=== PATIENT | female | born 1965 | race Caucasian/White ===

== ENCOUNTER 2017-12-28 14:15 | Emergency (ER) | payer BC ==
[2017-12-28 14:25] VITALS: BP 145/78
[2017-12-28] MEDS ORDERED: Sodium Chloride 0.9% 10 ML Syringe FLUSH PRN (14:29)
[2017-12-28] MEDS ORDERED: Sodium Chloride 0.9% 1,000 ML IV ONE (14:30)
--- NOTE | 2017-12-28 14:43 | EDM.PDOC ---
ED HPI GENERAL MEDICAL PROBLEM - General Chief Complaint: General Stated Complaint: uti symptoms Time Seen by Provider: 12/28/17 14:28 Source of Information: Reports: Patient History Limitations: Reports: No Limitations - History of Present Illness INITIAL COMMENTS - FREE TEXT/NARRATIVE: Patient comes to ER with main complaint of muscle aches in arms/legs. Has had some kunal horse type cramps in lower legs. Seen in [facility] yesterday and diagnosed with UTI/started on Macrobid. Took one dose. Reports having loose stools all night after supper. Some chills, no fever. Notes some dysuria but no obvious blood in urine. Hx of chronic back issues. Notes increased discomfort bilateral mid back that shoots upward/downward last few days, worse today. No weakness/neuro changes. Denies acute HEENT/Resp/CV changes. No vomiting/nausea. Patient has multiple chronic issues, including second hand smoke exposure, asthma, anxiety, GERD, back pain, osteoarthritis, hyperlipidemia, thyroid. Weaned self off of Lorazepam and has not had a dose for last 6 days. 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 Bilateral Leg Pain Score (Numeric/FACES): 7 - Related Data Allergies Allergy/AdvReac Type Severity Reaction Status Date / Time fluticasone propionate Allergy Hives Verified 12/28/17 14:27 [From Flonase] oxycodone Allergy Vomiting Verified 12/28/17 14:27 Home Meds: Home Meds Multivitamin [Daily Vitamin] 1 tab PO DAILY 06/11/13 [History] Fluticasone/Salmeterol [Advair 250-50] 1 puff INH DAILY PRN 01/22/14 [History] Sertraline HCl [Zoloft] 1 tab PO BEDTIME 06/06/14 [History] LORazepam 0.5 mg PO TID PRN 11/01/15 [History] Metoprolol Tartrate 25 mg PO BID 11/01/15 [History] Aspirin [Halfprin] 81 mg PO DAILY 12/28/17 [History] Docusate Sodium [Colace Clear] 50 mg PO DAILY 12/28/17 [History] Ferrous Sulfate 650 mg PO DAILY 12/28/17 [History] Montelukast Sodium [Singulair] 10 mg PO DAILY 12/28/17 [History] Past Medical History HEENT History: Reports: Allergic Rhinitis, Impaired Vision, Other (See Below) Other HEENT History: Wears glasses, recurrent bilateral nasal polyps Cardiovascular History: Reports: CAD, High Cholesterol, Syncope, Other (See Below) Other Cardiovascular History: Mild coronary artery disease by heart catheterization on 09/28/15 with only 20% stenosis noted at that time, syncope on 12/20/08 and 01/03/06 Respiratory History: Reports: Asthma, Intubation, Previous, Pulmonary Fibrosis, Other (See Below) Other Respiratory History: Pulmonary fibrosis by chest x-ray Gastrointestinal History: Reports: Chronic Constipation, GERD, Helicobacter Pylori, Other (See Below) Other Gastrointestinal History: Previously treated H. pylori Genitourinary History: Reports: UTI, Recurrent MASTER OF CEREMONIES History: Reports: Other MASTER OF CEREMONIES History: Full term without complications during pregnancies or deliveries, menopause in 2012 with occasional menopausal symptoms Musculoskeletal History: Reports: Arthritis, Back Pain, Chronic, Neck Pain, Chronic, Osteoarthritis Neurological History: Reports: Headaches, Chronic, Migraines, Vertigo, Other ( See Below) Other Neuro History: Mixed migraine and tension headaches with migraine headaches mostly at time of menopause Psychiatric History: Reports: Anxiety, Depression Endocrine/Metabolic History: Reports: Hypothyroidism, Other (See Below) Other Endocrine/Metabolic History: hypokalemia Hematologic History: Reports: None Immunologic History: Reports: None Oncologic (Cancer) History: Reports: None Dermatologic History: Reports: None - Infectious Disease History Infectious Disease History: Reports: Chicken Pox, Helicobacter Pylori, Measles - Past Surgical History Head Surgeries/Procedures: Reports: None HEENT Surgical History: Reports: Naso-Sinus Surgery, Oral Surgery, Polypectomy, Other (See Below) GI Surgical History: Reports: Colonoscopy, EGD, Other (See Below) Female Surgical History: Reports: Tubal Ligation, Other (See Below) Musculoskeletal Surgical History: Reports: Arthroscopic Procedure, Carpal Tunnel , Other (See Below) Oncologic Surgical History: Reports: None Dermatological Surgical History: Reports: None - Past Imaging History Past Imaging History: Reports: Angiography, Mammogram, MRI, Stress Testing, Ultrasound Social & Family History - Family History HEENT: Reports: Allergic Rhinitis, Other (See Below) Other HEENT Family History: Allergic rhinitis in multiple family members Cardiac: Reports: Afib, Bypass, CAD, Heart Failure, Heart Murmur, High Cholesterol, Hypertension, IA, Stent, Other (See Below) Other Cardiac Family History: Brother with atrial fibrillation, sister with acute IA and three-vessel CABG at age 50, brother with CHF secondary to fatal IA at age 60, brother with heart murmur secondary to rheumatic fever, hyperlipidemia and hypertension in 3 brothers and one sister, brother with fatal IA at age 40, mother with fatal IA at age 75, mother with IA in his 80s, PTCA/stent in 3 maternal aunts in their 50s Respiratory: Reports: None. Denies: Asthma, COPD, PE GI: Reports: Inflammatory Bowel Disease, Jaundice, Pancreatitis, Other (See Below) Other GI Family History: Nephew with Crohn's disease, father with jaundice, sister with pancreatitis : Reports: None. Denies: Dialysis, Renal Calculus, Renal Disease/ Insufficiency OBGYN: Reports: None. Denies: Dysfunctional uterine bleeding, Endometriosis, Fibroids Musculoskeletal: Reports: None. Denies: Gout, RA, SLE Neurological: Reports: None. Denies: Alzheimers Disease, CVA, Dementia, Parkinson's, Seizure, TIA Psychiatric: Reports: Anxiety, Depression, Other (See Below) Other Psychiatric Family History: Anxiety depression disorder in mother and 2 sisters Endocrine/Metabolic: Reports: Hypothyroidism, Other (See Below) Other Endocrine/Metabolic Family History: Mother with hypothyroidism Hematologic: Reports: Anemia, Other (See Below) Other Hematologic Family History: Son and brother with anemia, father with transfusions secondary to his jaundice/injury in his 40s Immunologic: Reports: Immunosuppression, Other (See Below) Other Immunologic Family History: Sister with scleroderma and another unknown type of immunodeficiency disorder with secondary pancreatitis requiring surgery at about age 35 Dermatologic: Reports: Other (See Below) Other Dermatologic Family History: sister with scleroderma Oncologic: Reports: Colon, Leukemia, Renal, Other (See Below) Other Oncologic Family History: Brother with fatal colon cancer at age 25, son with ALL at age 3-1/2 years with blood transfusions required, father with kidney cancer in his 80s - Caffeine Use Caffeine Use: Reports: Coffee (one cup per week), Soda (one soda per day), Tea ( rare). Denies: Energy Drinks - Living Situation & Occupation Living situation: Reports: , with Family Occupation: Employed ED ROS GENERAL - Review of Systems Review Of Systems: See Below Constitutional: Reports: Chills, Weight Gain (gained 5-6# over the last several weeks), Other (brain fog). Denies: Fever, Night Sweats, Diaphoresis, Decreased Appetite, Weight Loss HEENT: Reports: No Symptoms (no acute changes) Respiratory: Reports: No Symptoms, Cough, Sputum Cardiovascular: Denies: Chest Pain, Dyspnea on Exertion, Edema, Lightheadedness , Palpitations GI/Abdominal: Reports: Diarrhea. Denies: Abdominal Pain, Black Stool, Bloody Stool, Nausea, Vomiting : Reports: Dysuria, Flank Pain, Frequency. Denies: Hematuria Musculoskeletal: Reports: Muscle Pain (generalized aches in back/arms/legs). Denies: Joint Swelling Skin: Reports: No Symptoms Neurological: Denies: Confusion, Dizziness, Headache, Numbness, Paresthesia, Trouble Speaking, Difficulty Walking, Weakness, Change in Speech, Gait Disturbance Psychiatric: Denies: Confusion, Hallucinations, Homicidal Ideation, Mood Lability, Suicidal Ideation Hematologic/Lymphatic: Reports: No Symptoms ED EXAM, GENERAL - Physical Exam Exam: See Below Exam Limited By: No Limitations General Appearance: Alert, WD/WN, No Apparent Distress Eye Exam: Bilateral Eye: EOMI, PERRL Ears: Normal External Exam Nose: No: Nasal Deformity, Nasal Swelling, Nasal Drainage Throat/Mouth: Normal Lips, Normal Voice, No Airway Compromise Head: Atraumatic, Normocephalic Neck: Normal Inspection, Supple, Non-Tender, Full Range of Motion Respiratory/Chest: No Respiratory Distress, Lungs Clear, Normal Breath Sounds, No Accessory Muscle Use, Chest Non-Tender Cardiovascular: Normal Peripheral Pulses, Regular Rate, Rhythm, No Edema, No Murmur Peripheral Pulses: 2+: Radial (L), Radial (R) GI/Abdominal: Soft, Non-Tender, No Distention, Abnormal Bowel Sounds (present but overall diminished all quadrants) (Female) Exam: Deferred Rectal (Female) Exam: Deferred Back Exam: CVA Tenderness (R) (mild). No: CVA Tenderness (L), Muscle Spasm, Paraspinal Tenderness, Vertebral Tenderness Extremities: Normal Inspection, Normal Range of Motion, Non-Tender, No Pedal Edema, Normal Capillary Refill Neurological: Alert, Oriented, Normal Cognition, Normal Gait, No Motor/Sensory Deficits Psychiatric: Normal Affect, Normal Mood Skin Exam: Warm, Dry, Intact, Normal Color Course - Vital Signs Last Recorded V/S: Last Vital Signs Temp 36.9 C 12/28/17 14:15 Pulse 102 H 12/28/17 14:15 Resp 16 12/28/17 14:15 BP 145/78 H 12/28/17 14:15 Pulse Ox 100 12/28/17 14:15 - Orders/Labs/Meds Orders: Active Orders 24 hr Category Date Time Status Abdomen Pelvis wo Cont [CT] Stat Exams 12/28/17 14:30 Taken CREATINE KINASE,CK [CHEM] Routine Lab 12/28/17 17:52 Ordered CULTURE URINE [RM] Routine Lab 12/28/17 14:20 Stop Req CULTURE URINE [RM] Stat Lab 12/28/17 17:32 Ordered PRO B-TYPE NATRIUR PEPT,BNPPRO [CHEM] Routine Lab 12/28/17 15:47 Ordered VITAMIN D,25-HYDROXY [CHEM] Stat Lab 12/28/17 14:59 Ordered Sodium Chloride 0.9% [Saline Flush] Med 12/28/17 14:29 Active 10 ml FLUSH ASDIRECTED PRN Saline Lock Insert [OM.PC] Stat Oth 12/28/17 14:29 Ordered Medication Orders Sodium Chloride (Saline Flush) 10 ml FLUSH ASDIRECTED PRN PRN Reason: Keep Vein Open Labs: Laboratory Tests 12/28/17 12/28/17 12/28/17 Range/Units 14:20 14:35 14:35 WBC 11.1 H (4.0-10.2) K/uL RBC 4.43 (3.77-5.09) M/uL Hgb 13.7 D (11.7-15.5) g/dL Hct 39.4 (34.0-46.0) % MCV 88.9 (84.0-98.0) fL MCH 30.9 (28.2-33.3) pg MCHC 34.8 (31.7-36.0) g/dL RDW 13.5 (11.2-14.1) % Plt Count 220 (150-350) K/uL Neut % (Auto) 80.3 H (45.0-80.0) % Lymph % (Auto) 4.6 L (10.0-50.0) % Gordon % (Auto) 3.2 (2.0-14.0) % Eos % (Auto) 11.7 H (0.0-5.0) % Baso % (Auto) 0.2 (0.0-2.0) % Neut # (Auto) 8.92 H (1.40-7.00) K/uL Lymph # (Auto) 0.51 (0.50-3.50) K/uL Gordon # (Auto) 0.36 (0.00-1.00) K/uL Eos # (Auto) 1.30 H (0.00-0.50) K/uL Baso # (Auto) 0.02 (0.00-0.20) K/uL Sodium 142 (136-145) mmol/L Potassium 3.5 (3.5-5.1) mmol/L Chloride 105 (98-107) mmol/L Carbon Dioxide 24.9 (21.0-32.0) mmol/L BUN 13 (7-18) mg/dL Creatinine 0.75 (0.51-1.17) mg/dL Est Cr Clr Drug Dosing 67.82 mL/min Estimated GFR (MDRD) > 60 mL/min Glucose 158 H (74-106) mg/dL Calcium 8.7 (8.5-10.1) mg/dL Magnesium (1.8-2.4) mg/dL Total Bilirubin 0.3 (0.2-1.0) mg/dL AST 17 (15-37) U/L ALT 32 (12-78) U/L Alkaline Phosphatase 76 (46-116) IU/L Total Protein 7.2 (6.4-8.2) g/dL Albumin 3.6 (3.4-5.0) g/dL Specimen Type Urinblad Urine Color Yellow Urine Appearance Clear Urine pH 7.0 (5.0-9.0) Ur Specific Baker 1.010 (1.005-1.030) Urine Protein Negative (NEGATIVE) mg/dL Urine Glucose (UA) Negative (NEGATIVE) mg/dL Urine Ketones Negative (NEGATIVE) mg/dL Urine Occult Blood Negative (NEGATIVE) Urine Nitrite Negative (NEGATIVE) Urine Bilirubin Negative (NEGATIVE) Urine Urobilinogen 0.2 (0.2-1.0) E.U./dL Ur Leukocyte Esterase Negative (NEGATIVE) Urine RBC 0-5 /HPF Urine WBC 0-5 /HPF Ur Epithelial Cells Few /LPF Urine Bacteria Rare (NONE TO FEW) /HPF 12/28/17 Range/Units 14:35 WBC (4.0-10.2) K/uL RBC (3.77-5.09) M/uL Hgb (11.7-15.5) g/dL Hct (34.0-46.0) % MCV (84.0-98.0) fL MCH (28.2-33.3) pg MCHC (31.7-36.0) g/dL RDW (11.2-14.1) % Plt Count (150-350) K/uL Neut % (Auto) (45.0-80.0) % Lymph % (Auto) (10.0-50.0) % Gordon % (Auto) (2.0-14.0) % Eos % (Auto) (0.0-5.0) % Baso % (Auto) (0.0-2.0) % Neut # (Auto) (1.40-7.00) K/uL Lymph # (Auto) (0.50-3.50) K/uL Gordon # (Auto) (0.00-1.00) K/uL Eos # (Auto) (0.00-0.50) K/uL Baso # (Auto) (0.00-0.20) K/uL Sodium (136-145) mmol/L Potassium (3.5-5.1) mmol/L Chloride (98-107) mmol/L Carbon Dioxide (21.0-32.0) mmol/L BUN (7-18) mg/dL Creatinine (0.51-1.17) mg/dL Est Cr Clr Drug Dosing mL/min Estimated GFR (MDRD) mL/min Glucose (74-106) mg/dL Calcium (8.5-10.1) mg/dL Magnesium 1.9 (1.8-2.4) mg/dL Total Bilirubin (0.2-1.0) mg/dL AST (15-37) U/L ALT (12-78) U/L Alkaline Phosphatase (46-116) IU/L Total Protein (6.4-8.2) g/dL Albumin (3.4-5.0) g/dL Specimen Type Urine Color Urine Appearance Urine pH (5.0-9.0) Ur Specific Baker (1.005-1.030) Urine Protein (NEGATIVE) mg/dL Urine Glucose (UA) (NEGATIVE) mg/dL Urine Ketones (NEGATIVE) mg/dL Urine Occult Blood (NEGATIVE) Urine Nitrite (NEGATIVE) Urine Bilirubin (NEGATIVE) Urine Urobilinogen (0.2-1.0) E.U./dL Ur Leukocyte Esterase (NEGATIVE) Urine RBC /HPF Urine WBC /HPF Ur Epithelial Cells /LPF Urine Bacteria (NONE TO FEW) /HPF Meds: Medications Generic Name Dose Route Start Last Admin Trade Name Freq PRN Reason Stop Dose Admin Sodium Chloride 10 ml 12/28/17 14:29 Saline Flush FLUSH ASDIRECTED PRN Keep Vein Open Discontinued Medications Generic Name Dose Route Start Last Admin Trade Name Freq PRN Reason Stop Dose Admin Sodium Chloride 1,000 mls @ 500 mls/hr 12/28/17 14:30 12/28/17 14:43 Normal Saline IV 12/28/17 16:29 500 mls/hr .BOLUS ONE Administration Ketorolac Tromethamine 30 mg 12/28/17 15:44 12/28/17 15:55 Toradol IVPUSH 12/28/17 15:45 30 mg ONETIME ONE Administration Magnesium Sulfate/Dextrose 1 gm 12/28/17 15:44 12/28/17 16:01 Magnesium 1 Gm In D5w 100 Ml IV 12/28/17 15:45 1 gm ONETIME ONE Administration Tramadol HCl 50 mg 12/28/17 17:48 12/28/17 17:52 Ultram PO 12/28/17 17:49 50 mg ONETIME ONE Administration - Radiology Interpretation Free Text/Narrative:: CT of abdomen/pelvis showed no obvious abnormality other than small 1mm speck near distal left ureter. - Re-Assessments/Exams Free Text/Narrative Re-Assessment/Exam: Workup overall unremarkable. WBC just mildly above normal limits. Normal HGB. CBC/Chem unremarkable except for low normal Mg. UA showed no sign of infection. Patient received IV fluids. Given her muscle discomfort she received single dose of magnesium IV. IV toradol helped pain. Patient noted that she was reasonably comfortable when laying in bed. Increased discomfort noted when she was trying to walk/stand. During stay and further visiting with patient, she recalled two things. First was that she started Zetia approximately 6 weeks ago. Second was that she used "detox pads" on her feet last night. Certainly patient's increasing muscle soreness over the past month as well as sensation of brain fog could very likely be due to the Zetia as these are common side effects. Uncertain as to significance of loose stools. That too could be related to Zetia but that only started last night. Muscle discomfort has been building for a while. Research into patient's detox pads shows no proven efficacy/effect and no list of side effects. Cannot rule out some sort of effect from the detox pads as far as worsening muscle discomfort/loose stools however it seems unlikely. CT abdomen/pelvis unremarkable except for small speck noted left ureter, only 1mm in size. Could be artifact per Radiology. Plan at this time is to discharge patient home and have her continue to observe for changes. She is to follow up as needed over the weekend if worsening or new problems are noted. Given the completely normal UA, she was told it was ok to stop Macrobid. UC has been ordered however and patient will be called if it suggests UTI. She is to stop the Zetia as it is suspected that her complaints suggest statin intolerance. Patient plans on following up with her local provider. Single Tramadol given prior to discharge. Patient did not wish to have any additional pain medications. Precautions reviewed prior to discharge. Vit D and CK as well as UC pending at time of discharge. Departure - Departure Time of Disposition: 17:51 Disposition: Home, Self-Care 01 Condition: Good Clinical Impression: Generalized muscle ache, Statin intolerance - Discharge Information *PRESCRIPTION DRUG MONITORING PROGRAM REVIEWED*: Not Applicable *COPY OF PRESCRIPTION DRUG MONITORING REPORT IN PATIENT MIRIAM: Not Applicable Instructions: Ketorolac injection, Tramadol tablets, Musculoskeletal Pain Referrals: Kenyatta Braun PA-C [Primary Care Provider] - Forms: ED Department Discharge Additional Instructions: Discontinue your cholesterol medication. OK to stop Macrobid also. There was no sign of a urinary tract infection today. If you urine culture indicates an infection, you will be contacted and started on an appropriate medication. Rest /relax today and tomorrow. Stay hydrated. Watch for any changes in symptoms/ new problems and follow up as needed. Throw out your remaining detox pads. Highly recommend dietary changes as discussed during your ER stay. - My Orders Last 24 Hours: My Active Orders 12/28/17 14:20 CULTURE URINE [RM] Routine 12/28/17 14:29 Sodium Chloride 0.9% [Saline Flush] 10 ml FLUSH ASDIRECTED PRN Saline Lock Insert [OM.PC] Stat 12/28/17 14:30 Abdomen Pelvis wo Cont [CT] Stat 12/28/17 14:59 VITAMIN D,25-HYDROXY [CHEM] Stat 12/28/17 15:47 PRO B-TYPE NATRIUR PEPT,BNPPRO [CHEM] Routine 12/28/17 17:32 CULTURE URINE [RM] Stat 12/28/17 17:52 CREATINE KINASE,CK [CHEM] Routine - Assessment/Plan Last 24 Hours: My Active Orders 12/28/17 14:20 CULTURE URINE [RM] Routine 12/28/17 14:29 Sodium Chloride 0.9% [Saline Flush] 10 ml FLUSH ASDIRECTED PRN Saline Lock Insert [OM.PC] Stat 12/28/17 14:30 Abdomen Pelvis wo Cont [CT] Stat 12/28/17 14:59 VITAMIN D,25-HYDROXY [CHEM] Stat 12/28/17 15:47 PRO B-TYPE NATRIUR PEPT,BNPPRO [CHEM] Routine 12/28/17 17:32 CULTURE URINE [RM] Stat 12/28/17 17:52 CREATINE KINASE,CK [CHEM] Routine
[2017-12-28 14:55] LABS: CHLORIDE,CL 105 mmol/L (98-107); SODIUM,NA 142 mmol/L (136-145)
[2017-12-28] MEDS ORDERED: Ketorolac 30 MG/ML SDV IVPUSH ONE (15:44)
[2017-12-28] MEDS ORDERED: traMADol 50 MG Tab PO ONE (17:48)
== END 2017-12-28 18:10 | disposition home or self-care (01) ==
LOC: LL.ED 14:15
DX: M79.1 Myalgia (principal); R25.2 Cramp and spasm; T37.8X5A Adverse effect of other specified systemic anti-infectives and antiparasitics, initial encounter; T50.995A Adverse effect of other drugs, medicaments and biological substances, initial encounter; E03.9 Hypothyroidism, unspecified; I11.0 Hypertensive heart disease with heart failure; I25.2 Old myocardial infarction; I50.9 Heart failure, unspecified; Z88.5 Allergy status to narcotic agent; Z79.899 Other long term (current) drug therapy; Z79.82 Long term (current) use of aspirin
CPT/HCPCS: 36415; 74176; 80053; 81001; 82306; 82550; 83735; 83880; 85025; 87086; 96361; 96365; 96375; 99284; A9270; J1885; J3475; J7030

== ENCOUNTER 2019-05-28 00:38 | Inpatient (IN) | payer BC ==
--- NOTE | 2019-05-28 01:19 | EDM.PDOC ---
ED HPI GENERAL MEDICAL PROBLEM - General Chief Complaint: Respiratory Problem Stated Complaint: dyspnea Time Seen by Provider: 05/28/19 01:10 Source of Information: Reports: Patient, Old Records ([facility] chart/EMR.) History Limitations: Reports: No Limitations - History of Present Illness INITIAL COMMENTS - FREE TEXT/NARRATIVE: The patient was brought to the emergency room via private automobile by her for evaluation of nausea, dizziness, near syncope, and left lower pleuritic type symptoms with symptoms worsening since about 11 PM this evening. She has not felt well for the last several days with no known exposure to infection. Patient did take 650 mg of Tylenol at 18:00 hours this evening. No recent history of abdominal pain, heartburn, emesis, diarrhea, melena, gross hematochezia, or any food intolerance, including fatty foods, etc.. The patient denies any chest pressure, heart flutter, orthopnea, diaphoresis, paresthesias, recent decreased exercise tolerance, or any other anginal-type symptoms. No history of gross hematuria, colic, or other UTI symptoms. The patient also denies any recent fever, cough, wheezing, dyspnea, etc.. Onset: Gradual, Other (As above) Onset Date: 05/27/19 Onset Time: 23:00 Duration: Constant, Getting Worse Location: Reports: Chest. Denies: Head, Face, Neck, Abdomen, Back, Pelvis, Upper Extremity, Left, Upper Extremity, Right, Lower Extremity, Left, Radiates to Quality: Reports: Sharp, Stabbing Severity: Severe Improves with: Reports: Rest Worsens with: Reports: Breathing Context: Reports: Other (As above). Denies: Sick Contact, Trauma Associated Symptoms: Reports: Nausea/Vomiting (As above). 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 Bilateral Lower Chest Pain Score (Numeric/FACES): 9 - Related Data Allergies Allergy/AdvReac Type Severity Reaction Status Date / Time fluticasone propionate Allergy Hives Verified 05/28/19 00:41 [From Flonase] oxycodone Allergy Vomiting Verified 05/28/19 00:41 Home Meds: Home Meds Multivitamin [Daily Vitamin] 1 tab PO DAILY 06/11/13 [History] Fluticasone/Salmeterol [Advair 250-50] 1 puff INH DAILY PRN 01/22/14 [History] Sertraline HCl [Zoloft] 1 tab PO BEDTIME 06/06/14 [History] LORazepam 0.5 mg PO TID PRN 11/01/15 [History] Aspirin [Halfprin] 81 mg PO DAILY 12/28/17 [History] Montelukast Sodium [Singulair] 10 mg PO QPM 12/28/17 [History] Levothyroxine 25 mcg PO ASDIRECTED 02/26/19 [History] Cannabidiol (Cbd) Extract [CBD Oil] 0 drop TOP DAILY 05/28/19 [History] Past Medical History HEENT History: Reports: Allergic Rhinitis, Impaired Vision, Other (See Below). Denies: Cataract, Glaucoma, Hard of Hearing, Macular Degeneration, Otitis Media , Retinal Detachment Other HEENT History: Wears glasses, recurrent bilateral nasal polyps Cardiovascular History: Reports: CAD, High Cholesterol, Syncope, Other (See Below). Denies: Afib, Aneurysm, Arrhythmia, Blood Clots/VTE/DVT, Heart Failure , Heart Murmur, Hypertension, FL, PVD Other Cardiovascular History: Mild coronary artery disease by heart catheterization on 09/28/15 with only 20% stenosis noted at that time, syncope on 12/20/08 and 01/03/06 Respiratory History: Reports: Asthma, Bronchitis, Recurrent, Intubation, Previous, Pneumonia, Recurrent, Pulmonary Fibrosis, Other (See Below). Denies: COPD, Intubation, Difficult, Pneumothorax, Sleep Apnea, TB Other Respiratory History: Pulmonary fibrosis by chest x-ray. 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 Bilateral pulmonary nodules stable by CT scans in 2018. Gastrointestinal History: Reports: Chronic Constipation, Diverticulosis, GERD, Helicobacter Pylori, Other (See Below). Denies: Bowel Obstruction, Celiac Disease, Cholelithiasis, Chronic Diarrhea, Colon Polyp, Fatty Liver, Fecal Incontinence, Gastritis, Hepatitis, Hiatal Hernia, Inflammatory Bowel Disease, Irritable Bowel Syndrome, Jaundice, Pancreatitis, PUD Other Gastrointestinal History: Previously treated H. pylori. Benign splenic cysts. Genitourinary History: Reports: Renal Calculus, UTI, Recurrent, Other (See Below ). Denies: Acute Renal Failure, Chronic Renal Insuffiency, Retention, Urinary, STD, Urinary Incontinence Other Genitourinary History: Questionable left-sided urolithiasis on 12/28/2017. [employer]IONER [employer] History: Reports: . Denies: Dysfunctional Uterine Bleeding, Endometriosis, Fibroids, Spontaneous : 4 Para: 4 LMP (Approximate): Other (See Below) Other [employer] History: Full term without complications during pregnancies or deliveries, menopause in 2013 with occasional menopausal symptoms Musculoskeletal History: Reports: Arthritis, Back Pain, Chronic, Neck Pain, Chronic, Osteoarthritis, Other (See Below). Denies: Amputation, Fracture, Gout , RA, SLE Other Musculoskeletal History: Statin intolerance with myalgias on 12/28/2017. Neurological History: Reports: Headaches, Chronic, Migraines, Vertigo, Other ( See Below). Denies: Alzheimers Disease, Cerebral Aneurysms, CVA, Head Trauma, MS, Neuropathy, Peripheral, Parkinson's, Seizure, TIA Other Neuro History: Mixed migraine and tension headaches with migraine headaches mostly at time of menopause Psychiatric History: Reports: Anxiety, Depression. Denies: Abuse, Victim of, ADD, ADHD, Addiction, Dementia, Psych Hospitalization(s), Psychosis, PTSD, Suicide Attempt, Suicidal Ideation Endocrine/Metabolic History: Reports: Hypothyroidism, Other (See Below). Denies : Diabetes, Gestational, Diabetes, Type I, Diabetes, Type II, Diabetes Mellitus , Type 3c, IDDM Other Endocrine/Metabolic History: hypokalemia Hematologic History: Reports: None. Denies: Anemia, Blood Transfusion(s) Immunologic History: Reports: None. Denies: AIDS, HIV, SLE Oncologic (Cancer) History: Reports: None. Denies: Basal Cell Carcinoma, Breast , Cervix, Colon, Hodgkin's Lymphoma, Leukemia, Lung, Lymphoma, Malignant Melanoma, Non-Hodgkin's Lymphoma, Ovarian, Squamous Cell Carcinoma, Uterine Dermatologic History: Reports: None. Denies: Eczema, Psoriasis - Infectious Disease History Infectious Disease History: Reports: Chicken Pox, Helicobacter Pylori, Measles. Denies: C-Difficile, Meningitis, Mononucleosis, MRSA, Mumps, Pertussis ( Whooping Cough), Rheumatic Fever, Rubella, Scarlet Fever, Shingles, TB, VRE - Past Surgical History Head Surgeries/Procedures: Reports: None HEENT Surgical History: Reports: Naso-Sinus Surgery, Oral Surgery, Polypectomy, Other (See Below). Denies: Adenoidectomy, Cataract Surgery, Eye Surgery, Laser Surgery, LASIK, Myringotomy w Tube(s), Tonsillectomy Other HEENT Surgeries/Procedures: Last sinus surgery for nasal polyp removal in March 2018 with previous sinus surgery 1992. [place] teeth extraction x4 at age 23 with additional multiple teeth extractions. Cardiovascular Surgical History: Reports: None. Denies: Varicose Respiratory Surgical History: Reports: None. Denies: Thoracentesis GI Surgical History: Reports: Colonoscopy, EGD, Other (See Below). Denies: Appendectomy, Cholecystectomy, Hernia, Abdominal, Hernia, Inguinal, Hernia Repair/Other, Polypectomy Other GI Surgeries/Procedures: Colonoscopy and EGD in about 2010. Female Surgical History: Reports: Tubal Ligation, Other (See Below). Denies : Breast Biopsy, Section, D&C, Hysterectomy, Salpingo-Oophorectomy Other Female Surgeries/Procedures: Tubal ligation in 1989. Endocrine Surgical History: Denies: Thyroid Biopsy Neurological Surgical History: Reports: Other (See Below). Denies: C-Spine, Discectomy, Laminectomy, Lumbar Spine, Sacral Spine, Spinal Fusion, Thoracic Spine Other Neurological Surgeries/Procedures: Previous epidural steroid injections in L4-L5 on 07/25/2015. Musculoskeletal Surgical History: Reports: Arthroscopic Procedure, Other (See Below). Denies: Carpal Tunnel, Ganglion Cyst, Joint Replacement, ORIF, Shoulder Surgery Other Musculoskeletal Surgeries/Procedures:: Right arthroscopic hip surgery including IT band lengthening on 06/23/2014. Oncologic Surgical History: Reports: None Dermatological Surgical History: Reports: None - Past Imaging History Past Imaging History: Reports: Angiography (Catheterization on 09/28/2015 with results as above.), Carotid US (12/31/2017), CAT Scan (CT of the abdomen and pelvis on 12/02/2018 and 12/28/2017. CT of the head on 05/11/2019. CT of the neck /soft tissue on 02/25/2019. CT of the chest on 01/13/2018. CTA of the chest on .), DEXA Scan (11/17/2018), Holter Monitor (May 2019 with results pending), Mammogram (Last on 11/12/2018.), MRI (Right hip on 12/10/2016. Lumbar spine on 01/05/2019 and 09/27/2016. Thoracic spine on 03/23/2014.), Stress Testing (Stress test at [facility] in [place] in February 2015 with previous evaluation on 03/19/2013 with normal ejection fraction of 76%. Additional previous evaluation on 02/14/2006), Ultrasound (Thyroid ultrasound on , 07/16/2016 and 09/23/2001. Pelvic ultrasound on 11/14/2018, 12/31/2017 and 12/28/2008. Renal ultrasound on 11/30/2015.) Social & Family History - Family History HEENT: Reports: Allergic Rhinitis, Other (See Below). Denies: Glaucoma, Macular Degeneration, Retinal Detachment Other HEENT Family History: Allergic rhinitis in multiple family members Cardiac: Reports: Afib, Arrhythmia, Bypass, CAD, Cardiomyopathy, Heart Failure, Heart Murmur, High Cholesterol, Hypertension, FL, Stent, Other (See Below). Denies: Aneurysm, Blood Clots/VTE/DVT Other Cardiac Family History: Brother with atrial fibrillation, sister with acute FL and three-vessel CABG at age 50, brother with CHF secondary to fatal FL at age 60, brother with heart murmur secondary to rheumatic fever, hyperlipidemia and hypertension in 3 brothers and one sister, brother with fatal FL at age 40, mother with fatal FL at age 75, mother with FL in his 80s, PTCA/stent in 3 maternal aunts in their 50s. Father with end-stage CHF at about age 94 and currently on hospice secondary to his heart disease. Respiratory: Reports: None. Denies: Asthma, COPD, PE, Pneumothorax, Sleep Apnea GI: Reports: Inflammatory Bowel Disease, Jaundice, Pancreatitis, Other (See Below). Denies: Celiac Disease, Cholelithiasis, Colon Polyps, GERD, GI bleed, Irritable Bowel Syndrome, PUD Other GI Family History: Nephew with Crohn's disease, father with jaundice, sister with pancreatitis : Reports: None. Denies: Renal Disease/Insufficiency OBGYN: Reports: None. Denies: Endometriosis, Recurrent Spontaneous Musculoskeletal: Reports: None. Denies: Arthritis, Gout, RA, SLE Neurological: Reports: None. Denies: Alzheimers Disease, Cerebral Aneurysms, CVA, Dementia, Migraines, MS, Seizure, TIA Psychiatric: Reports: Anxiety, Depression, Other (See Below). Denies: Abuse, Victim of, ADD, ADHD, Psych Hospitalization(s), PTSD, Suicide Attempt Other Psychiatric Family History: Anxiety depression disorder in mother and 2 sisters Endocrine/Metabolic: Reports: Hypothyroidism, Other (See Below). Denies: Diabetes, Gestational, Diabetes, Type I, Diabetes, type II, Diabetes Mellitus, Type 3c, IDDM Other Endocrine/Metabolic Family History: Mother with hypothyroidism Hematologic: Reports: Anemia, Other (See Below) Other Hematologic Family History: Son and brother with anemia, father with transfusions secondary to his jaundice/injury in his 40s Immunologic: Reports: Immunosuppression, Other (See Below). Denies: AIDS, HIV, SLE Other Immunologic Family History: Sister with scleroderma and another unknown type of immunodeficiency disorder with secondary pancreatitis requiring surgery at about age 35 Dermatologic: Reports: Other (See Below). Denies: Eczema, Psoriasis Other Dermatologic Family History: sister with scleroderma Oncologic: Reports: Bladder, Colon, Leukemia, Renal, Other (See Below) Other Oncologic Family History: Brother with fatal colon cancer at age 25, son with ALL at age 3-1/2 years with blood transfusions required, father with kidney cancer in his 80s. Brother with bladder cancer at about age 66. - Tobacco Use Smoking Status *Q: Never Smoker Tobacco Use Within Last Twelve Months: No Used Tobacco, but Quit: No Smoking Cessation Information Provided To Patient: Yes Smoking Cessation Information Given Comment: smokes. Second Hand Smoke Exposure: Yes - Caffeine Use Caffeine Use: Reports: Coffee (1/2 cup per day). Denies: Energy Drinks, Soda, Tea - Alcohol Use Alcohol Use History: No Days Per Week of Alcohol Use: 0 Number of Drinks Per Day: 0 Number of Drinks Per Day Comment: No previous DWIs, problems with alcohol abuse , etc. 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 ED EXAM, GENERAL - Physical Exam Exam: See Below Exam Limited By: No Limitations General Appearance: Alert, WD/WN, No Apparent Distress, Anxious (Moderate) Eye Exam: Bilateral Eye: EOMI, Normal Inspection (No nystagmus. Patient wearing glasses.), PERRL Ears: Normal External Exam, Normal Canal, Hearing Grossly Normal, Normal TMs Nose: Normal Mucosa, No Blood, Clear Rhinorrhea Throat/Mouth: Normal Lips, Normal Teeth (Multiple missing teeth), Normal Gums, Normal Voice, No Airway Compromise. No: Normal Oropharynx (Trace erythema in the posterior pharynx no pinpoint white exudates or peritonsillar abscess), Dysphagia, Inflammation, Perioral Cyanosis Head: Atraumatic, Normocephalic. No: Facial Swelling, Facial Tenderness, Sinus Tenderness Neck: Normal Inspection, Supple, Non-Tender, Full Range of Motion. No: Carotid Bruit, Lymphadenopathy (L), Lymphadenopathy (R), Thyromegaly Respiratory/Chest: No Respiratory Distress, No Accessory Muscle Use, Chest Non- Tender, Rales (Mild occasional bilateral). No: Rhonchi, Wheezing, Pleural Rub, Retractions Cardiovascular: Normal Peripheral Pulses, No Edema, No Gallop, No JVD, No Murmur , No Rub, Tachycardia (Regular rhythm). No: Gallop/S3, Gallop/S4, Friction Rub Peripheral Pulses: 2+: Radial (L), Radial (R), Dorsalis Pedis (L), Dorsalis Pedis (R) GI/Abdominal: Normal Bowel Sounds, Soft, Non-Tender, No Organomegaly, No Distention, No Abnormal Bruit, No Mass. No: Guarding (Female) Exam: Deferred Rectal (Female) Exam: Deferred Back Exam: Normal Inspection, Full Range of Motion. No: CVA Tenderness (L), CVA Tenderness (R), Muscle Spasm Extremities: Normal Inspection, Normal Range of Motion, Non-Tender, No Pedal Edema, Normal Capillary Refill. No: Darwin's Sign Neurological: Alert, Oriented, CN II-XII Intact, Normal Cognition, Normal Gait, Normal Reflexes (Negative Babinski's), No Motor/Sensory Deficits Psychiatric: Anxious (Moderate), Depressed Mood (Mild to moderate) Skin Exam: Warm, Dry, Intact, Normal Color, No Rash. No: Diaphoretic, Wound/ Incision Lymphatic: No Adenopathy Course - Vital Signs Last Recorded V/S: Last Vital Signs Temp 37.7 C 05/28/19 04:16 Pulse 108 H 05/28/19 04:16 Resp 20 05/28/19 04:16 BP 81/47 L 05/28/19 04:16 Pulse Ox 98 05/28/19 04:16 Vital Signs - 24 hr 05/28/19 05/28/19 05/28/19 00:47 00:57 01:15 Temperature [ 37.3 C Oral] Temperature [ Temporal] Pulse, 102 H 105 H Peripheral [ Left Brachial] Respiratory 22 H 16 16 Rate Blood Pressure 105/62 109/63 [Left Upper Arm ] O2 Sat by Pulse 99 98 98 Oximetry 05/28/19 05/28/19 05/28/19 01:30 01:45 02:00 Temperature [ Oral] Temperature [ Temporal] Pulse, 106 H 105 H 104 H Peripheral [ Left Brachial] Respiratory 16 16 16 Rate Blood Pressure 96/54 L 89/64 L 102/78 [Left Upper Arm ] O2 Sat by Pulse 97 98 98 Oximetry 05/28/19 05/28/19 05/28/19 02:15 03:00 03:01 Temperature [ Oral] Temperature [ 36.8 C Temporal] Pulse, 104 H 111 H Peripheral [ Left Brachial] Respiratory 16 17 Rate Blood Pressure 101/61 111/68 [Left Upper Arm ] O2 Sat by Pulse 97 98 Oximetry - Orders/Labs/Meds Orders: Active Orders 24 hr Category Date Time Status Cardiac Monitoring [RC] . DIRECTED Care 05/28/19 01:41 Active Peripheral IV Care [RC] . DIRECTED Care 05/28/19 01:22 Active Nothing Per Oral Diet [DIET] Diet 05/28/19 Breakfast Active Abdomen Series w Chest 1V [CR] Stat Exams 05/28/19 01:20 Taken CULTURE BLOOD [BC] Stat Lab 05/28/19 01:31 Received CULTURE BLOOD [BC] Stat Lab 05/28/19 01:37 Received CULTURE STREP A CONFIRMATION [RM] Stat Lab 05/28/19 01:31 Results CULTURE URINE [] Stat Lab 05/28/19 01:59 Received STREP SCRN A RAPID W CULT CONF [RM] Stat Lab 05/28/19 01:31 Results Sodium Chloride 0.9% [Saline Flush] Med 05/28/19 01:20 Active 10 ml FLUSH ASDIRECTED PRN Blood Culture x2 Reflex Set [OM.PC] Urgent Oth 05/28/19 01:20 Ordered Obtain Past Medical Record [OM.PC] Urgent Oth 05/28/19 01:20 Active Peripheral IV Insertion Adult [OM.PC] Stat Oth 05/28/19 01:20 Ordered Resuscitation Status Stat Resus Stat 05/28/19 01:20 Ordered Medication Orders Sodium Chloride (Saline Flush) 10 ml FLUSH ASDIRECTED PRN PRN Reason: Keep Vein Open Last Admin: 05/28/19 03:46 Dose: 10 ml Admin: 05/28/19 02:10 Dose: 10 ml Admin: 05/28/19 02:00 Dose: 10 ml Labs: Laboratory Tests 05/28/19 05/28/19 05/28/19 Range/Units 01:31 01:31 01:31 WBC 6.7 (4.0-10.2) K/uL RBC 4.36 (3.77-5.09) M/uL Hgb 13.5 (11.7-15.5) g/dL Hct 39.0 (34.0-46.0) % MCV 89.4 (84.0-98.0) fL MCH 31.0 (28.2-33.3) pg MCHC 34.6 (31.7-36.0) g/dL RDW 13.4 (11.2-14.1) % Plt Count 176 (150-350) K/uL Neut % (Auto) 95.0 H (45.0-80.0) % Lymph % (Auto) 4.3 L (10.0-50.0) % Cocke % (Auto) 0.4 L (2.0-14.0) % Eos % (Auto) 0.3 (0.0-5.0) % Baso % (Auto) 0.0 (0.0-2.0) % Neut # (Auto) 6.39 (1.40-7.00) K/uL Lymph # (Auto) 0.29 L (0.50-3.50) K/uL Cocke # (Auto) 0.03 (0.00-1.00) K/uL Eos # (Auto) 0.02 (0.00-0.50) K/uL Baso # (Auto) 0.00 (0.00-0.20) K/uL PT 10.1 (9.5-12.0) SEC INR 0.9 APTT 22.8 (21.0-31.3) SEC Sodium 140 (136-145) mmol/L Potassium 3.2 L (3.5-5.1) mmol/L Chloride 102 (98-107) mmol/L Carbon Dioxide 25.7 (21.0-32.0) mmol/L BUN 22 H (7-18) mg/dL Creatinine 0.82 (0.51-1.17) mg/dL Est Cr Clr Drug Dosing 61.31 mL/min Estimated GFR (MDRD) > 60 mL/min Glucose 123 H (74-106) mg/dL Lactic Acid (0.4-2.0) mmol/L Uric Acid 3.6 (2.6-7.2) mg/dL Calcium 8.7 (8.5-10.1) mg/dL Magnesium 2.1 (1.8-2.4) mg/dL Total Bilirubin 0.4 (0.2-1.0) mg/dL AST 19 (15-37) U/L ALT 22 (12-78) U/L Alkaline Phosphatase 70 (46-116) IU/L Total Protein 6.9 (6.4-8.2) g/dL Albumin 3.7 (3.4-5.0) g/dL Amylase 92 (25-115) U/L Lipase 224 (73-393) U/L HCG, Qual (NEGATIVE) Specimen Type Urine Color Urine Appearance Urine pH (5.0-9.0) Ur Specific Lamar (1.005-1.030) Urine Protein (NEGATIVE) mg/dL Urine Glucose (UA) (NEGATIVE) mg/dL Urine Ketones (NEGATIVE) mg/dL Urine Occult Blood (NEGATIVE) Urine Nitrite (NEGATIVE) Urine Bilirubin (NEGATIVE) Urine Urobilinogen (0.2-1.0) E.U./dL Ur Leukocyte Esterase (NEGATIVE) Urine RBC /HPF Urine WBC /HPF Ur Epithelial Cells /LPF Urine Bacteria (NONE TO FEW) /HPF 05/28/19 05/28/19 05/28/19 Range/Units 01:31 01:31 01:59 WBC (4.0-10.2) K/uL RBC (3.77-5.09) M/uL Hgb (11.7-15.5) g/dL Hct (34.0-46.0) % MCV (84.0-98.0) fL MCH (28.2-33.3) pg MCHC (31.7-36.0) g/dL RDW (11.2-14.1) % Plt Count (150-350) K/uL Neut % (Auto) (45.0-80.0) % Lymph % (Auto) (10.0-50.0) % Cocke % (Auto) (2.0-14.0) % Eos % (Auto) (0.0-5.0) % Baso % (Auto) (0.0-2.0) % Neut # (Auto) (1.40-7.00) K/uL Lymph # (Auto) (0.50-3.50) K/uL Cocke # (Auto) (0.00-1.00) K/uL Eos # (Auto) (0.00-0.50) K/uL Baso # (Auto) (0.00-0.20) K/uL PT (9.5-12.0) SEC INR APTT (21.0-31.3) SEC Sodium (136-145) mmol/L Potassium (3.5-5.1) mmol/L Chloride (98-107) mmol/L Carbon Dioxide (21.0-32.0) mmol/L BUN (7-18) mg/dL Creatinine (0.51-1.17) mg/dL Est Cr Clr Drug Dosing mL/min Estimated GFR (MDRD) mL/min Glucose (74-106) mg/dL Lactic Acid 2.6 H (0.4-2.0) mmol/L Uric Acid (2.6-7.2) mg/dL Calcium (8.5-10.1) mg/dL Magnesium (1.8-2.4) mg/dL Total Bilirubin (0.2-1.0) mg/dL AST (15-37) U/L ALT (12-78) U/L Alkaline Phosphatase (46-116) IU/L Total Protein (6.4-8.2) g/dL Albumin (3.4-5.0) g/dL Amylase (25-115) U/L Lipase (73-393) U/L HCG, Qual Negative (NEGATIVE) Specimen Type Urinvoid Urine Color Yellow Urine Appearance Clear Urine pH 7.5 (5.0-9.0) Ur Specific Lamar 1.015 (1.005-1.030) Urine Protein Negative (NEGATIVE) mg/dL Urine Glucose (UA) Negative (NEGATIVE) mg/dL Urine Ketones Negative (NEGATIVE) mg/dL Urine Occult Blood Trace-intact H (NEGATIVE) Urine Nitrite Negative (NEGATIVE) Urine Bilirubin Negative (NEGATIVE) Urine Urobilinogen 0.2 (0.2-1.0) E.U./dL Ur Leukocyte Esterase Negative (NEGATIVE) Urine RBC Not seen /HPF Urine WBC 0-5 /HPF Ur Epithelial Cells Few /LPF Urine Bacteria Few (NONE TO FEW) /HPF Blood cultures x2 collected Urine specimen set up for culture and sensitivity Microbiology 05/28/19 01:31 Group A Streptococcus Rapid Screen - Final Throat NEGATIVE STREP A SCREEN REFERENCE RANGE: NEGATIVE 05/28/19 01:31 Influenza Type A Antigen Screen - Final Nasal, Left NEGATIVE INFLUENZA A VIRUS AG REFERENCE RANGE: NEGATIVE Influenza Type B Antigen Screen - Final NEGATIVE INFLUENZA B VIRUS AG REFERENCE RANGE: NEGATIVE Meds: Medications Generic Name Dose Route Start Last Admin Trade Name Freq PRN Reason Stop Dose Admin Sodium Chloride 10 ml 05/28/19 01:20 05/28/19 03:46 Saline Flush FLUSH 10 ml ASDIRECTED PRN Administration Keep Vein Open Discontinued Medications Generic Name Dose Route Start Last Admin Trade Name Frenavi PRN Reason Stop Dose Admin Famotidine 40 mg 05/28/19 01:20 05/28/19 01:50 Pepcid IVPUSH 05/28/19 01:21 40 mg ONETIME ONE Administration Famotidine Confirm 05/28/19 01:52 05/28/19 02:12 Pepcid Administered 05/28/19 01:53 Not Given Dose 20 mg .ROUTE .STK-MED ONE Lactated Ringer's 1,000 mls @ 999 mls/hr 05/28/19 01:20 05/28/19 02:16 Ringers, Lactated IV 05/28/19 02:20 999 mls/hr .BOLUS ONE Administration Ceftriaxone Sodium 1 gm/ 100 mls @ 200 mls/hr 05/28/19 03:07 05/28/19 03:50 Sodium Chloride IV 05/28/19 03:36 200 mls/hr ONETIME ONE Administration Methylprednisolone Sodium Succinate 125 mg 05/28/19 03:08 05/28/19 03:45 Solu-Medrol IVPUSH 05/28/19 03:09 125 mg ONETIME ONE Administration Ondansetron HCl 4 mg 05/28/19 01:20 05/28/19 01:59 Zofran IVPUSH 05/28/19 01:21 4 mg ONETIME ONE Administration Pantoprazole Sodium 40 mg 05/28/19 01:20 05/28/19 02:08 Protonix Iv IVPUSH 05/28/19 01:21 40 mg ONETIME ONE Administration - Radiology Interpretation Free Text/Narrative:: child monitor showed sinus tachycardia in the 100s to 110s with no ectopy or arrhythmia Acute abdominal x-rays showed mild diffuse bilateral pulmonary infiltrates with additional moderate pulmonary obstructive disease with pulmonary fibrotic component. No cardiomegaly, CHF, pneumothorax, etc. Moderate diffuse stool with nonspecific bowel gaseous pattern with no free air, fluid levels, ileus, or obstruction. Departure - Departure Time of Disposition: 04:28 Disposition: Admitted As Inpatient 64 Condition: Good Clinical Impression: Mixed anxiety and depressive disorder, Asthma, Osteoarthritis, Hypothyroidism, Tobacco abuse counseling, Peptic reflux disease, Gastroenteritis, Elevated lactic acid level, Hypokalemia, Pleurisy Pneumonia Qualifiers: Pneumonia type: due to unspecified organism Laterality: unspecified laterality Lung location: unspecified part of lung Qualified Code(s): B99.9 - Unspecified infectious disease - Discharge Information *PRESCRIPTION DRUG MONITORING PROGRAM REVIEWED*: Not Applicable *COPY OF PRESCRIPTION DRUG MONITORING REPORT IN PATIENT MIRIAM: Not Applicable Sepsis Event Note - Evaluation Sepsis Screening Result: Possible Sepsis Risk - Focused Exam Vital Signs: Vital Signs Temp Temp Pulse Resp BP Pulse Ox 05/28/19 03:01 36.8 C 05/28/19 03:00 111 H 17 111/68 98 05/28/19 02:15 104 H 16 101/61 97 05/28/19 02:00 104 H 16 102/78 98 05/28/19 01:45 105 H 16 89/64 L 98 05/28/19 01:30 106 H 16 96/54 L 97 05/28/19 01:15 37.3 C 105 H 16 109/63 98 05/28/19 00:57 16 98 05/28/19 00:47 102 H 22 H 105/62 99 Date Exam was Performed: 05/28/19 Time Exam was Performed: 04:36 - Problem List & Annotations (1) Asthma SNOMED Code(s): 233236808 Code(s): J45.909 - UNSPECIFIED ASTHMA, UNCOMPLICATED Status: Acute Priority: Medium Current Visit: Yes Annotation/Comment:: Stable by history despite current pneumonia. Aggressive triple nebulizer treatments during this hospitalization. (2) Elevated lactic acid level SNOMED Code(s): 1398584 Code(s): R79.89 - OTHER SPECIFIED ABNORMAL FINDINGS OF BLOOD CHEMISTRY Status: Acute Priority: Medium Current Visit: Yes Onset Date: 05/28/19 Annotation/Comment:: No clinical evidence of sepsis. Blood cultures x2 were collected and urine specimen set up for culture and sensitivity prior to administration of IV Rocephin in the emergency room. Lactic acid level to be repeated later this morning. Telemetry initiated in the emergency room and will be continued through early parts of this hospitalization. (3) Pleurisy SNOMED Code(s): 561272963 Code(s): R09.1 - PLEURISY Status: Acute Priority: High Current Visit: Yes Onset Date: 05/27/19 Annotation/Comment:: IV Solu-Medrol given in the emergency room. Initiate IV Toradol on admission. (4) Pneumonia SNOMED Code(s): 331990301 Code(s): J18.9 - PNEUMONIA, UNSPECIFIED ORGANISM Status: Acute Priority: High Current Visit: Yes Onset Date: ~05/27/19 Annotation/Comment:: IV Rocephin initiated in the emergency room. Aggressive nebulizer treatments as below. Attempt to obtain a sputum specimen ELMO. Blood cultures x2 were drawn as below. Qualifiers: Pneumonia type: due to unspecified organism Laterality: unspecified laterality Lung location: unspecified part of lung Qualified Code(s): J18.9 - Pneumonia, unspecified organism (5) Mixed anxiety and depressive disorder SNOMED Code(s): 963807592 Code(s): F41.8 - OTHER SPECIFIED ANXIETY DISORDERS Status: Chronic Priority: Medium Current Visit: Yes Annotation/Comment:: Moderate control based on today's exam. Note increased stressors currently secondary to her father's illness. Emotional support provided. Continue to observe closely by her regular providers. (6) Osteoarthritis SNOMED Code(s): 831843679 Code(s): M19.90 - UNSPECIFIED OSTEOARTHRITIS, UNSPECIFIED SITE Status: Chronic Priority: Medium Current Visit: Yes Annotation/Comment:: Stable by patient history (7) Hypothyroidism SNOMED Code(s): 30611847 Code(s): E03.9 - HYPOTHYROIDISM, UNSPECIFIED Status: Chronic Priority: Medium Current Visit: Yes Onset Date: 06/06/14 Annotation/Comment:: TSH with next set of blood work (8) Peptic reflux disease SNOMED Code(s): 056099639 Code(s): K21.9 - GASTRO-ESOPHAGEAL REFLUX DISEASE WITHOUT ESOPHAGITIS Status: Chronic Priority: Medium Current Visit: Yes Annotation/Comment:: Stable by patient history with previously treated H. pylori. High-dose IV Pepcid and IV Protonix given in the emergency room with continuation of IV Protonix therapy secondary to IV Toradol and IV Solu-Medrol therapy during this hospitalization. (9) Hypokalemia SNOMED Code(s): 24097899 Code(s): E87.6 - HYPOKALEMIA Status: Chronic Priority: Medium Current Visit: Yes Annotation/Comment:: 1 L IV bolus of lactated Ringer's given in the emergency room with continuation of IV fluids during the early phases of hospitalization. (10) Tobacco abuse counseling SNOMED Code(s): 010962064, 575334953, 688647946 Code(s): Z71.6 - TOBACCO ABUSE COUNSELING Status: Chronic Priority: Medium Current Visit: Yes Annotation/Comment:: Patient counseled on the importance of her stopping smoking with information once again to be provided at discharge. (11) Gastroenteritis SNOMED Code(s): 04590613 Code(s): K52.9 - NONINFECTIVE GASTROENTERITIS AND COLITIS, UNSPECIFIED Status: Acute Priority: Medium Current Visit: Yes Onset Date: ~05/27/19 Annotation/Comment:: IV Zofran given in the emergency room. IV fluids as above. Observe for now. - Problem List Review Problem List Initiated/Reviewed/Updated: Yes - My Orders Last 24 Hours: My Active Orders 05/28/19 01:20 Abdomen Series w Chest 1V [CR] Stat Sodium Chloride 0.9% [Saline Flush] 10 ml FLUSH ASDIRECTED PRN Blood Culture x2 Reflex Set [OM.PC] Urgent Obtain Past Medical Record [OM.PC] Urgent Peripheral IV Insertion Adult [OM.PC] Stat Resuscitation Status Stat 05/28/19 01:22 Peripheral IV Care [RC] . DIRECTED 05/28/19 01:31 CULTURE BLOOD [BC] Stat CULTURE STREP A CONFIRMATION [RM] Stat STREP SCRN A RAPID W CULT CONF [RM] Stat 05/28/19 01:37 CULTURE BLOOD [BC] Stat 05/28/19 01:41 Cardiac Monitoring [RC] . DIRECTED 05/28/19 01:59 CULTURE URINE [RM] Stat 05/28/19 Breakfast Nothing Per Oral Diet [DIET] - Assessment/Plan Last 24 Hours: My Active Orders 05/28/19 01:20 Abdomen Series w Chest 1V [CR] Stat Sodium Chloride 0.9% [Saline Flush] 10 ml FLUSH ASDIRECTED PRN Blood Culture x2 Reflex Set [OM.PC] Urgent Obtain Past Medical Record [OM.PC] Urgent Peripheral IV Insertion Adult [OM.PC] Stat Resuscitation Status Stat 05/28/19 01:22 Peripheral IV Care [RC] . DIRECTED 05/28/19 01:31 CULTURE BLOOD [BC] Stat CULTURE STREP A CONFIRMATION [RM] Stat STREP SCRN A RAPID W CULT CONF [RM] Stat 05/28/19 01:37 CULTURE BLOOD [BC] Stat 05/28/19 01:41 Cardiac Monitoring [RC] . DIRECTED 05/28/19 01:59 CULTURE URINE [RM] Stat 05/28/19 Breakfast Nothing Per Oral Diet [DIET] Assessment:: As above. Plan: As above. Extensive precautions were given to the patient, who is in agreement with the treatment plan. The patient will require about 3-4 days of inpatient/ acute care secondary to multiple health problems as above.
[2019-05-28] MEDS ORDERED: Pantoprazole 40 MG Vial IVPUSH ONE (01:20)
[2019-05-28] MEDS ORDERED: Ondansetron 4 MG/2 ML SDV IVPUSH ONE (01:20)
[2019-05-28] MEDS ORDERED: Lactated Ringers 1,000 ML IV ONE ×2 (01:20→08:40)
[2019-05-28] MEDS ORDERED: Famotidine 20 MG/2 ML SDV IVPUSH ONE (01:20)
[2019-05-28] MEDS ORDERED: Famotidine 20 MG/2 ML SDV ONE (01:52)
[2019-05-28] MEDS: Sodium Chloride 0.9% 10 ML Syringe FLUSH PRN ×4 (02:00→15:49)
[2019-05-28 02:18] LABS: CHLORIDE,CL 102 mmol/L (98-107); SODIUM,NA 140 mmol/L (136-145)
[2019-05-28] MEDS ORDERED: cefTRIAXone 1 GM in Sodium Chloride 0.9% 100 ML IV ONE (03:07)
[2019-05-28] MEDS ORDERED: methylPREDNISolone Sodium Succinate 125 MG/2 ML SDV IVPUSH ONE (03:08)
[2019-05-28] MEDS ORDERED: Albuterol 0.083% 2.5 MG/3 ML Neb Soln NEB PRN (04:51)
[2019-05-28] MEDS ORDERED: Albuterol/Ipratropium 3.0-0.5 MG/3 ML Neb Soln NEB PRN (04:51)
[2019-05-28] MEDS ORDERED: Ketorolac 30 MG/ML SDV IVPUSH ONE (04:57)
[2019-05-28] MEDS ORDERED: Lactated Ringers 1,000 ML IV SCH (05:00)
[2019-05-28] MEDS: Levofloxacin/Dextrose 5%-Water 500 MG in Premix Bag 1 BAG IV SCH (05:30)
[2019-05-28] MEDS: Sodium Chloride 0.9% 10 ML Syringe FLUSH SCH ×3 (05:38→16:40)
[2019-05-28] MEDS: Budesonide 0.5 MG/2 ML Neb Susp NEB SCH ×2 (07:45→20:45)
[2019-05-28] MEDS: Aspirin 81 MG Tab.EC PO SCH (07:46)
[2019-05-28] MEDS: Magnesium Oxide 400 MG Tab PO SCH (07:46)
[2019-05-28] MEDS: Dextromethorphan/guaiFENesin 600-30 MG Tab.ER PO SCH ×2 (07:46→17:43)
[2019-05-28] MEDS: Albuterol/Ipratropium 3.0-0.5 MG/3 ML Neb Soln NEB SCH ×3 (07:46→20:45)
[2019-05-28] MEDS ORDERED: Ketorolac 15 MG/ML SDV IVPUSH PRN (11:00)
[2019-05-28] MEDS: cefTRIAXone 1 GM in Sodium Chloride 0.9% 100 ML IV SCH (15:14)
[2019-05-28] MEDS: Pantoprazole 40 MG Vial IVPUSH SCH (15:14)
[2019-05-28] MEDS: Acetaminophen 325 MG Tab PO PRN ×2 (16:23→20:47)
[2019-05-28] MEDS: Montelukast 10 MG Tab PO SCH (17:43)
[2019-05-28] MEDS: Lactated Ringers 1,000 ML IV SCH (17:54)
[2019-05-28] MEDS: Levothyroxine 25 MCG Tab PO SCH ×2 (20:45→21:02)
[2019-05-28] MEDS: Sertraline 50 MG Tab PO SCH (20:45)
[2019-05-28] MEDS: Temazepam 15 MG Cap PO PRN (20:48)
[2019-05-29] MEDS: Albuterol/Ipratropium 3.0-0.5 MG/3 ML Neb Soln NEB SCH ×4 (01:57→20:34)
[2019-05-29] MEDS: Sodium Chloride 0.9% 10 ML Syringe FLUSH PRN (02:00)
[2019-05-29] MEDS: Lactated Ringers 1,000 ML IV SCH ×2 (02:03→15:07)
[2019-05-29] MEDS: Pantoprazole 40 MG Vial IVPUSH SCH ×2 (02:06→15:36)
[2019-05-29] MEDS: cefTRIAXone 1 GM in Sodium Chloride 0.9% 100 ML IV SCH ×2 (05:15→15:35)
[2019-05-29] MEDS: Levofloxacin/Dextrose 5%-Water 500 MG in Premix Bag 1 BAG IV SCH (05:15)
[2019-05-29] MEDS: Sodium Chloride 0.9% 10 ML Syringe FLUSH SCH ×3 (05:16→17:17)
[2019-05-29] MEDS ORDERED: Levothyroxine 25 MCG Tab PO SCH (07:30)
[2019-05-29] MEDS: Aspirin 81 MG Tab.EC PO SCH (07:32)
[2019-05-29] MEDS: Dextromethorphan/guaiFENesin 600-30 MG Tab.ER PO SCH ×2 (07:32→17:17)
[2019-05-29] MEDS: Magnesium Oxide 400 MG Tab PO SCH (07:32)
[2019-05-29] MEDS: Acetaminophen 325 MG Tab PO PRN (07:32)
[2019-05-29] MEDS: Budesonide 0.5 MG/2 ML Neb Susp NEB SCH ×2 (07:33→20:26)
[2019-05-29 07:56] LABS: CHLORIDE,CL 108 mmol/L (98-107); SODIUM,NA 141 mmol/L (136-145)
--- NOTE | 2019-05-29 09:45 | PCM.PN ---
- General Info Date of Service: 05/29/19 Admission Dx/Problem (Free Text): 1. Bilateral pneumonia 2. Asthma exacerbation 3. Lactic acid elevation Functional Status: Reports: Pain Controlled, Tolerating Diet, Ambulating, Urinating, Incentive Spirometry Pain Score: 4 (Sinus headache) - Review of Systems General: Denies: Fever, Weakness, Fatigue, Chills, Night Sweats, Appetite (Good) HEENT: Reports: Headaches (Allergic sinus bilateral frontal headache), Post Nasal Drip, Sinus Congestion, Rhinitis. Denies: Ear Pain, Eye Pain, Sore Throat , Visual Changes Pulmonary: Reports: No Symptoms, Pleuritic Chest Pain (Improved 07/20). Denies: Shortness of Breath, Cough, Sputum, Wheezing Cardiovascular: Reports: No Symptoms. Denies: Chest Pain, Palpitations, Dyspnea on Exertion, Orthopnea, PND, Edema, Lightheadedness Gastrointestinal: Reports: Constipation (No bowel movement since admission). Denies: Abdominal Pain, Decreased Appetite, Diarrhea, Difficulty Swallowing, Hematochezia, Melena, Nausea, Vomiting Genitourinary: Reports: No Symptoms. Denies: Dysuria, Frequency, Burning, Urgency, Incontinence, Hematuria, Flank Pain Musculoskeletal: Reports: No Symptoms. Denies: Neck Pain, Shoulder Pain, Arm Pain, Back Pain Skin: Reports: No Symptoms. Denies: Diaphoresis Neurological: Reports: Headache. Denies: Confusion, Numbness, Paresthesia, Tingling, Weakness Psychiatric: Denies: Confusion, Depression, Anxiety, Agitation, Hallucinations - Patient Data Vitals - Most Recent: Last Vital Signs Temp 36.8 C 05/29/19 07:15 Pulse 71 05/29/19 07:15 Resp 18 05/29/19 07:15 BP 124/91 H 05/29/19 07:15 Pulse Ox 99 05/29/19 07:15 Vital Signs - 24 hr 05/28/19 05/28/19 05/28/19 14:00 16:00 18:00 Temperature [ 37.1 C Oral] Temperature [ 36.9 C 37.3 C Temporal] Pulse, 88 101 H 87 Peripheral [ Left Brachial] Respiratory 16 14 16 Rate Blood Pressure 101/56 L 114/65 108/65 [Left Upper Arm ] Blood Pressure [Right Upper Arm] O2 Sat by Pulse 97 98 98 Oximetry 05/28/19 05/29/19 05/29/19 20:00 00:00 04:00 Temperature [ Oral] Temperature [ 37.1 C 36.7 C 36.9 C Temporal] Pulse, 77 82 73 Peripheral [ Left Brachial] Respiratory 16 16 16 Rate Blood Pressure 108/68 [Left Upper Arm ] Blood Pressure 109/65 112/70 [Right Upper Arm] O2 Sat by Pulse 97 98 99 Oximetry 05/29/19 05/29/19 07:15 11:42 Temperature [ 36.8 C Oral] Temperature [ 36.3 C Temporal] Pulse, 71 64 Peripheral [ Left Brachial] Respiratory 18 16 Rate Blood Pressure 131/86 [Left Upper Arm ] Blood Pressure 124/91 H [Right Upper Arm] O2 Sat by Pulse 99 100 Oximetry Weight - Most Recent: 63.004 kg I&O - Last 24 Hours: Intake & Output 05/28/19 05/29/19 05/29/19 22:59 06:59 14:59 Intake Total 2116 1397 520 Output Total 600 1000 Balance 1516 397 520 Imaging Impressions - Last 24 Hours: monitor tech shows normal sinus rhythm in the 80s to 90s with no ectopy or arrhythmia. Lab Results Last 24 Hours: Laboratory Results - last 24 hr 05/28/19 05/29/19 05/29/19 Range/Units 15:45 07:09 07:09 WBC 7.3 (4.0-10.2) K/uL RBC 3.53 L (3.77-5.09) M/uL Hgb 10.7 L D (11.7-15.5) g/dL Hct 32.4 L (34.0-46.0) % MCV 91.8 (84.0-98.0) fL MCH 30.3 (28.2-33.3) pg MCHC 33.0 (31.7-36.0) g/dL RDW 14.1 (11.2-14.1) % Plt Count 173 (150-350) K/uL Neut % (Auto) 84.8 H (45.0-80.0) % Lymph % (Auto) 11.0 (10.0-50.0) % [place] % (Auto) 3.7 (2.0-14.0) % Eos % (Auto) 0.4 (0.0-5.0) % Baso % (Auto) 0.1 (0.0-2.0) % Neut # (Auto) 6.17 (1.40-7.00) K/uL Lymph # (Auto) 0.80 (0.50-3.50) K/uL [place] # (Auto) 0.27 (0.00-1.00) K/uL Eos # (Auto) 0.03 (0.00-0.50) K/uL Baso # (Auto) 0.01 (0.00-0.20) K/uL Sodium 141 (136-145) mmol/L Potassium 3.6 (3.5-5.1) mmol/L Chloride 108 H (98-107) mmol/L Carbon Dioxide 24.2 (21.0-32.0) mmol/L BUN 13 (7-18) mg/dL Creatinine 0.77 (0.51-1.17) mg/dL Est Cr Clr Drug Dosing 65.29 mL/min Estimated GFR (MDRD) > 60 mL/min Glucose 101 (74-106) mg/dL Lactic Acid 4.5 H (0.4-2.0) mmol/L Calcium 8.1 L (8.5-10.1) mg/dL Total Bilirubin 0.2 (0.2-1.0) mg/dL AST 28 (15-37) U/L ALT 38 (12-78) U/L Alkaline Phosphatase 54 (46-116) IU/L Total Protein 5.8 L (6.4-8.2) g/dL Albumin 2.8 L (3.4-5.0) g/dL 05/29/19 Range/Units 07:09 WBC (4.0-10.2) K/uL RBC (3.77-5.09) M/uL Hgb (11.7-15.5) g/dL Hct (34.0-46.0) % MCV (84.0-98.0) fL MCH (28.2-33.3) pg MCHC (31.7-36.0) g/dL RDW (11.2-14.1) % Plt Count (150-350) K/uL Neut % (Auto) (45.0-80.0) % Lymph % (Auto) (10.0-50.0) % [place] % (Auto) (2.0-14.0) % Eos % (Auto) (0.0-5.0) % Baso % (Auto) (0.0-2.0) % Neut # (Auto) (1.40-7.00) K/uL Lymph # (Auto) (0.50-3.50) K/uL [place] # (Auto) (0.00-1.00) K/uL Eos # (Auto) (0.00-0.50) K/uL Baso # (Auto) (0.00-0.20) K/uL Sodium (136-145) mmol/L Potassium (3.5-5.1) mmol/L Chloride (98-107) mmol/L Carbon Dioxide (21.0-32.0) mmol/L BUN (7-18) mg/dL Creatinine (0.51-1.17) mg/dL Est Cr Clr Drug Dosing mL/min Estimated GFR (MDRD) mL/min Glucose (74-106) mg/dL Lactic Acid 2.4 H (0.4-2.0) mmol/L Calcium (8.5-10.1) mg/dL Total Bilirubin (0.2-1.0) mg/dL AST (15-37) U/L ALT (12-78) U/L Alkaline Phosphatase (46-116) IU/L Total Protein (6.4-8.2) g/dL Albumin (3.4-5.0) g/dL Mike Results Last 24 Hours: Microbiology 05/28/19 01:59 Urine Culture - Final Urine, Clean Catch MIXED MICHEAL SUGGESTIVE OF CONTAMINATION. 05/28/19 01:31 Quick Strep Confirmation Culture - Final Throat NO GROUP A STREP ISOLATED REFERENCE RANGE: NEGATIVE Group A Streptococcus Rapid Screen - Final NEGATIVE STREP A SCREEN REFERENCE RANGE: NEGATIVE 05/28/19 01:37 Aerobic Blood Culture - Preliminary Blood - Venous - Lab Draw NO GROWTH AFTER 1 DAY Anaerobic Blood Culture - Preliminary NO GROWTH AFTER 1 DAY 05/28/19 01:31 Aerobic Blood Culture - Preliminary Blood - Venous NO GROWTH AFTER 1 DAY Anaerobic Blood Culture - Preliminary NO GROWTH AFTER 1 DAY 05/28/19 07:35 Stool Occult Blood (MIKE) - Final Stool / Feces Med Orders - Current: Current Medications Acetaminophen (Tylenol) 650 mg PO Q4H PRN PRN Reason: Pain/Fever Last Admin: 05/29/19 07:32 Dose: 650 mg Albuterol (Proventil Neb Soln) 2.5 mg NEB Q2H PRN PRN Reason: Dyspnea Albuterol/Ipratropium (Duoneb 3.0-0.5 Mg/3 Ml) 3 ml NEB Q4HRRT PRN PRN Reason: Dyspnea Albuterol/Ipratropium (Duoneb 3.0-0.5 Mg/3 Ml) 3 ml NEB Q6HRRT [facility] Last Admin: 05/29/19 07:33 Dose: 3 ml Aspirin (Halfprin) 81 mg PO DAILY [facility] Last Admin: 05/29/19 07:32 Dose: 81 mg Budesonide (Pulmicort) 0.5 mg NEB BIDRT [facility] Last Admin: 05/29/19 07:33 Dose: 0.5 mg Famotidine (Pepcid) 20 mg IVPUSH BID [facility] Guaifenesin/Dextromethorphan (Mucinex Dm Er 600-30 Mg) 1 tab PO BID [facility] Last Admin: 05/29/19 07:32 Dose: 1 tab Ceftriaxone Sodium 1 gm/ (Sodium Chloride) 100 mls @ 200 mls/hr IV Q12H [facility] Last Admin: 05/29/19 05:15 Dose: 200 mls/hr Levofloxacin/Dextrose 500 mg/ (Premix) 100 mls @ 100 mls/hr IV Q24H [facility] Last Admin: 05/29/19 05:15 Dose: 100 mls/hr Lactated Ringer's (Ringers, Lactated) 1,000 mls @ 60 mls/hr IV ASDIRECTED [facility] Last Admin: 05/29/19 02:03 Dose: 125 mls/hr Levothyroxine Sodium (Levothyroxine) 25 mcg PO MoWeFr@0700 [facility] Last Admin: 05/29/19 07:32 Dose: 25 mcg Magnesium Oxide (Magnesium Oxide) 400 mg PO DAILY [facility] Last Admin: 05/29/19 07:32 Dose: 400 mg Montelukast Sodium (Singulair) 10 mg PO QPM [facility] Last Admin: 05/28/19 17:43 Dose: 10 mg Pantoprazole Sodium (Protonix Iv) 40 mg IVPUSH Q12H [facility] Last Admin: 05/29/19 02:06 Dose: 40 mg Sertraline HCl (Zoloft) 50 mg PO BEDTIME VIANNEY Last Admin: 05/28/19 20:45 Dose: 50 mg Sodium Chloride (Saline Flush) 10 ml FLUSH ASDIRECTED PRN PRN Reason: Keep Vein Open Last Admin: 05/29/19 02:00 Dose: 10 ml Sodium Chloride (Saline Flush) 10 ml FLUSH Q12H VIANNEY Last Admin: 05/29/19 05:16 Dose: 10 ml Temazepam (Restoril) 15 mg PO BEDTIME PRN PRN Reason: Insomnia Last Admin: 05/28/19 20:48 Dose: 15 mg Discontinued Medications Famotidine (Pepcid) 40 mg IVPUSH ONETIME ONE Stop: 05/28/19 01:21 Last Admin: 05/28/19 01:50 Dose: 40 mg Famotidine (Pepcid) Confirm Administered Dose 20 mg .ROUTE .STK-MED ONE Stop: 05/28/19 01:53 Last Admin: 05/28/19 02:12 Dose: Not Given Lactated Ringer's (Ringers, Lactated) 1,000 mls @ 999 mls/hr IV .BOLUS ONE Stop: 05/28/19 02:20 Last Infusion: 05/28/19 03:30 Dose: Infused Ceftriaxone Sodium 1 gm/ (Sodium Chloride) 100 mls @ 200 mls/hr IV ONETIME ONE Stop: 05/28/19 03:36 Last Admin: 05/28/19 03:50 Dose: 200 mls/hr Lactated Ringer's (Ringers, Lactated) 1,000 mls @ 100 mls/hr IV ASDIRECTED [facility] Last Admin: 05/28/19 06:37 Dose: 100 mls/hr Lactated Ringer's (Ringers, Lactated) 1,000 mls @ 999 mls/hr IV .BOLUS ONE Stop: 05/28/19 09:40 Last Admin: 05/28/19 13:37 Dose: 999 mls/hr Ketorolac Tromethamine (Toradol) 15 mg IVPUSH Q6H PRN PRN Reason: Pain (moderate 4-6) Stop: 05/30/19 11:01 Last Admin: 05/28/19 17:49 Dose: 15 mg Ketorolac Tromethamine (Toradol) 30 mg IVPUSH ONETIME ONE Stop: 05/28/19 04:58 Last Admin: 05/28/19 05:31 Dose: 30 mg Levothyroxine Sodium (Levothyroxine) 25 mcg PO BEDTIME VIANNEY Last Admin: 05/28/19 21:02 Dose: Not Given Methylprednisolone Sodium Succinate (Solu-Medrol) 125 mg IVPUSH ONETIME ONE Stop: 05/28/19 03:09 Last Admin: 05/28/19 03:45 Dose: 125 mg Ondansetron HCl (Zofran) 4 mg IVPUSH ONETIME ONE Stop: 05/28/19 01:21 Last Admin: 05/28/19 01:59 Dose: 4 mg Pantoprazole Sodium (Protonix Iv) 40 mg IVPUSH ONETIME ONE Stop: 05/28/19 01:21 Last Admin: 05/28/19 02:08 Dose: 40 mg - Exam Quality Assessment: DVT Prophylaxis. No: Supplemental Oxygen, Central Line/PICC , Urine Catheter, Skin Breakdown, Restraints General: Oriented, Cooperative, No Acute Distress HEENT: Pupils Equal, Pupils Reactive, EOMI, Mucous Membr. Moist/[place], Other (No frontal sinus palpation pain). No: Scleral Icterus Neck: Supple, Trachea Midline, No Thyromegaly, +2 Carotid Pulse wo Bruit. No: Lymphadenopathy Lungs: Clear to Auscultation, Normal Respiratory Effort. No: Rhonchi, Rub, Wheezing Cardiovascular: Regular Rate, Regular Rhythm, No Murmurs. No: Gallops, Rubs GI/Abdominal Exam: Normal Bowel Sounds, Soft, Non-Tender, No Organomegaly, No Distention, No Abnormal Bruit, No Mass, Pelvis Stable. No: Guarding (Female) Exam: Deferred Back Exam: Normal Inspection, Full Range of Motion. No: CVA Tenderness (L), CVA Tenderness (R), Muscle Spasm Extremities: Normal Inspection, Normal Range of Motion, Non-Tender, No Pedal Edema, Normal Capillary Refill. No: Darwin's Sign Peripheral Pulses: 2+: Radial (L), Radial (R), Dorsalis Pedis (L), Dorsalis Pedis (R) Skin: Warm, Dry, Intact Neurological: No New Focal Deficit Psy/Mental Status: Anxious (Mild improved), Depressed (Mild improved with good eye contact). No: Agitated, Hallucinations, Withdrawal Symptoms Sepsis Event Note - Evaluation Sepsis Screening Result: No Definite Risk - Focused Exam Vital Signs: Vital Signs Temp Temp Pulse Resp BP Pulse Ox 05/29/19 07:15 36.8 C 71 18 124/91 H 99 05/29/19 04:00 36.9 C 73 16 112/70 99 05/29/19 00:00 36.7 C 82 16 109/65 98 Date Exam was Performed: 05/29/19 Time Exam was Performed: 13:44 - Problem List & Annotations (1) Pneumonia SNOMED Code(s): 923278868 Code(s): J18.9 - PNEUMONIA, UNSPECIFIED ORGANISM Status: Acute Priority: High Current Visit: Yes Onset Date: ~05/27/19 Qualifiers: Pneumonia type: due to unspecified organism Laterality: unspecified laterality Lung location: unspecified part of lung Qualified Code(s): J18.9 - Pneumonia, unspecified organism Annotation/Comment:: Evidence of bilateral pneumonia by my clinical exam and initial reading of acute abdominal x-rays on admission. Official x-ray report did not indicate any significant pneumonia, however no to baseline COPD and pulmonary fibrosis, which could interfere with this assessment. IV Rocephin initiated in the emergency room and was continued throughout this hospitalization. IV Levaquin was initiated after admission with initial progressive lactic acid elevation on 05/28 despite aggressive IV hydration and double antibiotic therapy as above. Aggressive nebulizer treatments as below. Attempt to obtain a sputum specimen ELMO, although this has not been collected.Blood cultures x2 were drawn as below. (2) Elevated lactic acid level SNOMED Code(s): 4048297 Code(s): R79.89 - OTHER SPECIFIED ABNORMAL FINDINGS OF BLOOD CHEMISTRY Status: Acute Priority: Medium Current Visit: Yes Onset Date: 05/28/19 Annotation/Comment:: Delay in initiating IV bolus of lactated Ringer's yesterday afternoon secondary to nurse miscommunication progressive lactate acid elevations yesterday afternoon. Vital signs were stable at that time with no clinical evidence of sepsis with significantly improved although still elevated lactic acid level this morning. Blood cultures x2 were collected and urine specimen set up for culture and sensitivity prior to administration of IV Rocephin in the emergency room with no evidence of sepsis in preliminary results.Lactic acid level to be repeated 05/[address] Jackson to assume care at that time. Telemetry initiated in the emergency room and was continued through early parts of this hospitalization. (3) Asthma SNOMED Code(s): 071807238 Code(s): J45.909 - UNSPECIFIED ASTHMA, UNCOMPLICATED Status: Acute Priority: Medium Current Visit: Yes Annotation/Comment:: Stable by history despite current pneumonia. Aggressive triple nebulizer treatments during this hospitalization. (4) Pleurisy SNOMED Code(s): 836155460 Code(s): R09.1 - PLEURISY Status: Acute Priority: High Current Visit: Yes Onset Date: 05/27/19 Annotation/Comment:: IV Solu-Medrol given in the emergency room with IV Toradol initiated on admission. Pleurisy has significantly improved with discontinuation of IV Toradol at this time secondary to patient's developing anemia and Hemoccult-positive stools. Symptoms improved with improving pulmonary symptoms for treatment of her pneumonia. (5) Mixed anxiety and depressive disorder SNOMED Code(s): 767287295 Code(s): F41.8 - OTHER SPECIFIED ANXIETY DISORDERS Status: Chronic Priority: Medium Current Visit: Yes Annotation/Comment:: Somewhat improved and submission however note moderate control based on exam in the emergency room. Note increased stressors currently secondary to her father's illness, who is in hospice secondary to end-stage CHF. Emotional support provided on admission and throughout this hospitalization. The patient benefit from increase of her current Zoloft therapy regular providers with her previous Ativan therapy held during this hospitalization and not advisable on a long- term basis. Continue to observe closely by her regular providers for further medication adjustments through that office. Consider additional counseling. (6) Osteoarthritis SNOMED Code(s): 357513106 Code(s): M19.90 - UNSPECIFIED OSTEOARTHRITIS, UNSPECIFIED SITE Status: Chronic Priority: Medium Current Visit: Yes Annotation/Comment:: Stable by patient history (7) Hypothyroidism SNOMED Code(s): 76427044 Code(s): E03.9 - HYPOTHYROIDISM, UNSPECIFIED Status: Chronic Priority: Medium Current Visit: Yes Onset Date: 06/06/14 Annotation/Comment:: TSH normal on 09/26 despite only taking her Synthroid on a 3 times per week basis. Secondary to her emotional status, however, consideration should be given to increasing her Synthroid to a daily at bedtime basis with repeat TSH recommended in 4 weeks. (8) Peptic reflux disease SNOMED Code(s): 254830092 Code(s): K21.9 - GASTRO-ESOPHAGEAL REFLUX DISEASE WITHOUT ESOPHAGITIS Status: Chronic Priority: Medium Current Visit: Yes Annotation/Comment:: Note Hemoccult positive stools significant abdominal complaints during this hospitalization or prior to admission. Note previously treated H. pylori. High -dose IV Pepcid and IV Protonix given in the emergency room with continuation of IV Protonix therapy secondary to IV Toradol and IV Solu-Medrol therapy during the first day of this hospitalization. IV Pepcid is added on 05/31 the current IV Protonix therapy. Continue to observe closely at discharge. Progressive anemia secondary to hydration, however iron studies and vitamin B12 level will be conducted on 05/30. Patient should discontinue previous Zantac therapies secondary to recent studies indicating possible carcinogenic effect with this medication. She will be discharged on 20 mg twice daily Prilosec regimen for now with further GI work-up depending on her clinical course. (9) Hypokalemia SNOMED Code(s): 19149572 Code(s): E87.6 - HYPOKALEMIA Status: Chronic Priority: Medium Current Visit: Yes Annotation/Comment:: Potassium level is normal on 05/29 with 2 L of lactated Ringer's by means of IV bolus given on 05/28. The patient has had a 5 pound weight gain since admission with reduction of baseline IV fluids on . BNP and repeat x-rays will be conducted on 05/30 to rule out fluid overload, however no clinical evidence of this on 05/29. (10) Tobacco abuse counseling SNOMED Code(s): 412838390, 071350638, 579808041 Code(s): Z71.6 - TOBACCO ABUSE COUNSELING Status: Chronic Priority: Medium Current Visit: Yes Annotation/Comment:: Patient counseled on the importance of her stopping smoking with information once again to be provided at discharge. (11) Gastroenteritis SNOMED Code(s): 21769233 Code(s): K52.9 - NONINFECTIVE GASTROENTERITIS AND COLITIS, UNSPECIFIED Status: Acute Priority: Medium Current Visit: Yes Onset Date: ~05/27/19 Annotation/Comment:: IV Zofran given in the emergency room. IV fluids as above. Observe for now. (12) Anemia SNOMED Code(s): 221646494 Code(s): D64.9 - ANEMIA, UNSPECIFIED Status: Chronic Priority: Medium Current Visit: Yes Qualifiers: Anemia type: unspecified type Qualified Code(s): D64.9 - Anemia, unspecified Annotation/Comment:: As above (13) Allergic rhinitis SNOMED Code(s): 00718954 Code(s): J30.9 - ALLERGIC RHINITIS, UNSPECIFIED Status: Chronic Priority : Medium Current Visit: Yes Annotation/Comment:: Exacerbation of allergic rhinitis during this hospitalization with reinitiation of Claritin therapy on . (14) Hypoalbuminemia SNOMED Code(s): 944476890 Code(s): E88.09 - OTH DISORDERS OF PLASMA-PROTEIN METABOLISM, NEC Status: Acute Priority: Medium Current Visit: Yes Onset Date: 05/29/19 Annotation/Comment:: Normal on admission. Observe for now. (15) Hypocalcemia SNOMED Code(s): 5375978 Code(s): E83.51 - HYPOCALCEMIA Status: Acute Priority: Medium Current Visit: Yes Onset Date: 05/29/19 Annotation/Comment:: Normal on admission. Observe for now. - Problem List Review Problem List Initiated/Reviewed/Updated: Yes - My Orders Last 24 Hours: My Active Orders 05/28/19 15:00 Pantoprazole [ProTONIX IV] 40 mg IVPUSH Q12H 05/28/19 16:00 cefTRIAXone [Rocephin] 1 gm Sodium Chloride 0.9% [Normal Saline] 100 ml IV Q12H 05/28/19 17:22 Lactated Ringers [Ringers, Lactated] 1,000 ml IV ASDIRECTED 05/28/19 18:00 Montelukast [Singulair] 10 mg PO QPM 05/28/19 20:00 Sertraline [Zoloft] 50 mg PO BEDTIME 05/29/19 07:30 Levothyroxine 25 mcg PO MoWeFr@0700 05/29/19 09:41 Vital Signs [RC] Q6HR 05/29/19 09:45 Famotidine [Pepcid] 20 mg IVPUSH BID 05/30/19 05:11 CBC WITH AUTO DIFF [HEME] Routine COMPREHENSIVE METABOLIC PN,CMP [CHEM] Routine FERRITIN [CHEM] Routine IRON/TIBC [CHEM] Routine PRO B-TYPE NATRIUR PEPT,BNPPRO [CHEM] Routine VITAMIN B12 [CHEM] Routine - Assessment Assessment:: As above. - Plan Plan:: As above. Extensive precautions were given to the patient, who is in agreement with the treatment plan. Dr. Jackson assumes care in the a.m. Anticipate an additional 1-2 days of inpatient care with her pharmacy called today for prescription of anticipated antibiotics at discharge. Continue telemetry for now secondary to persistent mildly elevated lactic acid level. Note that the patient did initially have a pelvic ultrasound scheduled in this facility today, however this was not conducted during this hospitalization. Note previous intolerance to her NuvaRing, which was removed per recommendations of her post tronic machine operator prior to admission. No significant symptoms today. Various therapeutic options were discussed with the patient already having a follow-up appointment with her post tronic machine operator in June. She will discuss possible repeat pelvic ultrasound at time of that appointment with further work-up per his recommendations and depending on her clinical course. Patient was also strongly encouraged not to reinitiate her CBD oil at discharge.
[2019-05-29] MEDS: Loratadine 10 MG Tab PO SCH (11:17)
[2019-05-29] MEDS: Famotidine 20 MG/2 ML SDV IVPUSH SCH ×2 (11:17→17:17)
[2019-05-29] MEDS: Montelukast 10 MG Tab PO SCH (17:16)
[2019-05-29] MEDS: Sertraline 50 MG Tab PO SCH (20:26)
[2019-05-29] MEDS: Temazepam 15 MG Cap PO PRN (21:01)
[2019-05-30] MEDS: Albuterol/Ipratropium 3.0-0.5 MG/3 ML Neb Soln NEB SCH ×2 (01:14→07:16)
[2019-05-30] MEDS: Pantoprazole 40 MG Vial IVPUSH SCH (04:18)
[2019-05-30] MEDS: cefTRIAXone 1 GM in Sodium Chloride 0.9% 100 ML IV SCH (04:19)
[2019-05-30] MEDS: Sodium Chloride 0.9% 10 ML Syringe FLUSH SCH ×2 (04:54→20:57)
[2019-05-30] MEDS: Levofloxacin/Dextrose 5%-Water 500 MG in Premix Bag 1 BAG IV SCH (04:54)
[2019-05-30] MEDS: Acetaminophen 325 MG Tab PO PRN (06:32)
[2019-05-30] MEDS: Magnesium Oxide 400 MG Tab PO SCH (07:15)
[2019-05-30] MEDS: Aspirin 81 MG Tab.EC PO SCH (07:15)
[2019-05-30] MEDS: Loratadine 10 MG Tab PO SCH (07:15)
[2019-05-30] MEDS: Famotidine 20 MG/2 ML SDV IVPUSH SCH (07:16)
[2019-05-30] MEDS: Dextromethorphan/guaiFENesin 600-30 MG Tab.ER PO SCH (07:16)
[2019-05-30] MEDS: Sodium Chloride 0.9% 10 ML Syringe FLUSH PRN ×2 (07:16→14:24)
[2019-05-30] MEDS: Budesonide 0.5 MG/2 ML Neb Susp NEB SCH (07:16)
[2019-05-30 08:03] LABS: CHLORIDE,CL 107 mmol/L (98-107); SODIUM,NA 142 mmol/L (136-145)
[2019-05-30] MEDS ORDERED: Furosemide 40 MG/4 ML VIAL IVPUSH ONE (08:23)
[2019-05-30] MEDS ORDERED: traMADol 50 MG Tab PO PRN (08:23)
[2019-05-30] MEDS ORDERED: Potassium Chloride 20 MEQ Tab.ER PO ONE (08:23)
--- NOTE | 2019-05-30 12:23 | PCM.DCSUM1 ---
Discharge Summary - Hospital Course Brief History: Patient admitted for treatment of suspected pneumonia/ gastroenteritis. Elevated Lactic Acid. Diagnosis: Stroke: No - Discharge Data Discharge Date: 05/30/19 Discharge Disposition: Home, Self-Care 01 Condition: Good - Referral to Home Health Primary Care Physician: Kenyatta Braun PA-C - Discharge Diagnosis/Problem(s) (1) Elevated lactic acid level SNOMED Code(s): 3965327 ICD Code: R79.89 - OTHER SPECIFIED ABNORMAL FINDINGS OF BLOOD CHEMISTRY Status: Acute Priority: Medium Current Visit: Yes Onset Date: 05/28/19 Problem Details: Elevated lactic acid. No clinical evidence of sepsis observed during stay. No fevers. Normal WBC. (2) Asthma SNOMED Code(s): 218391477 ICD Code: J45.909 - UNSPECIFIED ASTHMA, UNCOMPLICATED Status: Acute Priority: Medium Current Visit: Yes Problem Details: Stable by history. Patient reports having no SOB/cough/respiratory changes. Discharged with Rx for DuoNebs to use QID prn respiratory symptoms. (3) Gastroenteritis SNOMED Code(s): 81603977 ICD Code: K52.9 - NONINFECTIVE GASTROENTERITIS AND COLITIS, UNSPECIFIED Status: Acute Priority: Medium Current Visit: Yes Onset Date: ~05/27/19 Problem Details: IV Zofran given in the emergency room. IV fluids as above. Observe for now. (4) Pleurisy SNOMED Code(s): 012961506 ICD Code: R09.1 - PLEURISY Status: Acute Priority: High Current Visit: Yes Onset Date: 05/27/19 Problem Details: IV Solu-Medrol given in the emergency room with IV Toradol initiated on admission. Pleurisy has significantly improved with discontinuation of IV Toradol at this time secondary to patient's developing anemia and Hemoccult-positive stools. Symptoms improved with improving pulmonary symptoms for treatment of her pneumonia. (5) Pneumonia SNOMED Code(s): 175758750 ICD Code: J18.9 - PNEUMONIA, UNSPECIFIED ORGANISM Status: Acute Priority : High Current Visit: Yes Onset Date: ~05/27/19 Problem Details: Evidence of bilateral pneumonia by my clinical exam and initial reading of acute abdominal x-rays on admission. Official x-ray report did not indicate any significant pneumonia, however no to baseline COPD and pulmonary fibrosis, which could interfere with this assessment. IV Rocephin initiated in the emergency room and was continued throughout this hospitalization. IV Levaquin was initiated after admission with initial progressive lactic acid elevation on 05/28 despite aggressive IV hydration and double antibiotic therapy as above. Aggressive nebulizer treatments as below. Attempt to obtain a sputum specimen ELMO, although this has not been collected.Blood cultures x2 were drawn as below. Qualifiers: Pneumonia type: due to unspecified organism Laterality: unspecified laterality Lung location: unspecified part of lung Qualified Code(s): J18.9 - Pneumonia, unspecified organism (6) Hypokalemia SNOMED Code(s): 02838639 ICD Code: E87.6 - HYPOKALEMIA Status: Chronic Priority: Medium Current Visit: Yes Problem Details: Potassium level is normal on 05/29 with 2 L of lactated Ringer's by means of IV bolus given on 05/28. The patient has had a 5 pound weight gain since admission with reduction of baseline IV fluids on . BNP and repeat x-rays will be conducted on 05/30 to rule out fluid overload , however no clinical evidence of this on 05/29. (7) Hypothyroidism SNOMED Code(s): 30066425 ICD Code: E03.9 - HYPOTHYROIDISM, UNSPECIFIED Status: Chronic Priority: Medium Current Visit: Yes Onset Date: 06/06/14 Problem Details: TSH normal on 09/26 despite only taking her Synthroid on a 3 times per week basis. Secondary to her emotional status, however, consideration should be given to increasing her Synthroid to a daily at bedtime basis with repeat TSH recommended in 4 weeks. (8) Osteoarthritis SNOMED Code(s): 517431088 ICD Code: M19.90 - UNSPECIFIED OSTEOARTHRITIS, UNSPECIFIED SITE Status: Chronic Priority: Medium Current Visit: Yes Problem Details: Stable by patient history (9) Peptic reflux disease SNOMED Code(s): 458810418 ICD Code: K21.9 - GASTRO-ESOPHAGEAL REFLUX DISEASE WITHOUT ESOPHAGITIS Status: Chronic Priority: Medium Current Visit: Yes Problem Details: Note Hemoccult positive stools significant abdominal complaints during this hospitalization or prior to admission. Note previously treated H. pylori. High -dose IV Pepcid and IV Protonix given in the emergency room with continuation of IV Protonix therapy secondary to IV Toradol and IV Solu-Medrol therapy during the first day of this hospitalization. IV Pepcid is added on 05/31 the current IV Protonix therapy. Continue to observe closely at discharge. Progressive anemia secondary to hydration, however iron studies and vitamin B12 level will be conducted on 05/30. Patient should discontinue previous Zantac therapies secondary to recent studies indicating possible carcinogenic effect with this medication. She will be discharged on 20 mg twice daily Prilosec regimen for now with further GI work-up depending on her clinical course. (10) Tobacco abuse counseling SNOMED Code(s): 079663332, 943592214, 941707065 ICD Code: Z71.6 - TOBACCO ABUSE COUNSELING Status: Chronic Priority: Medium Current Visit: Yes Problem Details: Patient counseled on the importance of her stopping smoking with information once again to be provided at discharge. - Discharge Plan *PRESCRIPTION DRUG MONITORING PROGRAM REVIEWED*: Not Applicable *COPY OF PRESCRIPTION DRUG MONITORING REPORT IN PATIENT MIRIAM: Not Applicable Home Medications: Home Meds Multivitamin [Daily Vitamin] 1 tab PO DAILY 06/11/13 [History] Fluticasone/Salmeterol [Advair 250-50] 1 puff INH DAILY PRN 01/22/14 [History] Sertraline HCl [Zoloft] 1 tab PO BEDTIME 06/06/14 [History] LORazepam 0.5 mg PO TID PRN 11/01/15 [History] Aspirin [Halfprin] 81 mg PO DAILY 12/28/17 [History] Montelukast Sodium [Singulair] 10 mg PO QPM 12/28/17 [History] Levothyroxine 25 mcg PO ASDIRECTED 02/26/19 [History] Cannabidiol (Cbd) Extract [CBD Oil] 0 drop TOP DAILY 05/28/19 [History] Ezetimibe [Zetia] 5 mg PO QPM 05/28/19 [History] Forms: ED Department Discharge Referrals: Kenyatta Braun PA-C [Primary Care Provider] - - Patient Data Vitals - Most Recent: Last Vital Signs Temp 36.6 C 05/30/19 10:50 Pulse 75 05/30/19 10:50 Resp 18 05/30/19 10:50 BP 160/100 H 05/30/19 10:50 Pulse Ox 97 05/30/19 10:50 Weight - Most Recent: 61.144 kg I&O - Last 24 hours: Intake & Output 05/29/19 05/30/19 05/30/19 22:59 06:59 14:59 Intake Total 1664 1561 Output Total 600 2000 Balance 1064 -439 Lab Results - Last 24 hrs: Laboratory Results - last 24 hr 05/30/19 05/30/19 05/30/19 Range/Units 07:09 07:09 07:09 WBC 5.6 (4.0-10.2) K/uL RBC 3.84 (3.77-5.09) M/uL Hgb 11.5 L (11.7-15.5) g/dL Hct 34.9 (34.0-46.0) % MCV 90.9 (84.0-98.0) fL MCH 29.9 (28.2-33.3) pg MCHC 33.0 (31.7-36.0) g/dL RDW 14.0 (11.2-14.1) % Plt Count 193 (150-350) K/uL Neut % (Auto) 63.3 (45.0-80.0) % Lymph % (Auto) 27.0 (10.0-50.0) % Peach % (Auto) 5.9 (2.0-14.0) % Eos % (Auto) 3.4 (0.0-5.0) % Baso % (Auto) 0.4 (0.0-2.0) % Neut # (Auto) 3.55 (1.40-7.00) K/uL Lymph # (Auto) 1.51 (0.50-3.50) K/uL Peach # (Auto) 0.33 (0.00-1.00) K/uL Eos # (Auto) 0.19 (0.00-0.50) K/uL Baso # (Auto) 0.02 (0.00-0.20) K/uL Sodium 142 (136-145) mmol/L Potassium 3.6 (3.5-5.1) mmol/L Chloride 107 (98-107) mmol/L Carbon Dioxide 28.3 (21.0-32.0) mmol/L BUN 11 (7-18) mg/dL Creatinine 0.90 (0.51-1.17) mg/dL Est Cr Clr Drug Dosing 55.86 mL/min Estimated GFR (MDRD) > 60 mL/min Glucose 84 (74-106) mg/dL Calcium 8.5 (8.5-10.1) mg/dL Iron 59 (50-175) ug/dL TIBC 283 (250-450) ug/dL % Saturation 20.09379 Ferritin 53 (8-388) ng/mL Total Bilirubin 0.2 (0.2-1.0) mg/dL AST 40 H (15-37) U/L ALT 70 (12-78) U/L Alkaline Phosphatase 61 (46-116) IU/L NT-Pro-B Natriuret Pep 1110 H (0-125) pg/mL Total Protein 6.2 L (6.4-8.2) g/dL Albumin 3.0 L (3.4-5.0) g/dL Vitamin B12 426 (193-986) pg/mL TUSHAR Results - Last 24 hrs: Microbiology 05/28/19 01:37 Aerobic Blood Culture - Preliminary Blood - Venous - Lab Draw NO GROWTH AFTER 2 DAYS Anaerobic Blood Culture - Preliminary NO GROWTH AFTER 2 DAYS 05/28/19 01:31 Aerobic Blood Culture - Preliminary Blood - Venous NO GROWTH AFTER 2 DAYS Anaerobic Blood Culture - Preliminary NO GROWTH AFTER 2 DAYS 05/28/19 01:59 Urine Culture - Final Urine, Clean Catch MIXED MICHEAL SUGGESTIVE OF CONTAMINATION. 05/28/19 01:31 Quick Strep Confirmation Culture - Final Throat NO GROUP A STREP ISOLATED REFERENCE RANGE: NEGATIVE Group A Streptococcus Rapid Screen - Final NEGATIVE STREP A SCREEN REFERENCE RANGE: NEGATIVE Med Orders - Current: Current Medications Acetaminophen (Tylenol) 650 mg PO Q4H PRN PRN Reason: Pain/Fever Last Admin: 05/30/19 06:32 Dose: 650 mg Albuterol (Proventil Neb Soln) 2.5 mg NEB Q2H PRN PRN Reason: Dyspnea Albuterol/Ipratropium (Duoneb 3.0-0.5 Mg/3 Ml) 3 ml NEB Q4HRRT PRN PRN Reason: Dyspnea Albuterol/Ipratropium (Duoneb 3.0-0.5 Mg/3 Ml) [address] [facility] Last Admin: 05/30/19 07:16 Dose: 3 ml Aspirin (Halfprin) [address] [facility] Last Admin: 05/30/19 07:15 Dose: 81 mg Budesonide (Pulmicort) 0.[address] [facility] Last Admin: 05/30/19 07:16 Dose: 0.5 mg Famotidine (Pepcid) [address] [facility] Last Admin: 05/30/19 07:16 Dose: 20 mg Guaifenesin/Dextromethorphan (Mucinex Dm Er 600-30 Mg) [address] [facility] Last Admin: 05/30/19 07:16 Dose: 1 tab Ceftriaxone Sodium 1 gm/ (Sodium Chloride) 100 mls @ 200 mls/hr IV Q12H [facility] Last Admin: 05/30/19 04:19 Dose: 200 mls/hr Levofloxacin/Dextrose 500 mg/ (Premix) 100 mls @ 100 mls/hr IV Q24H [facility] Last Admin: 05/30/19 04:54 Dose: 100 mls/hr Levothyroxine Sodium (Levothyroxine) 25 mcg PO MoWeFr@0700 [facility] Last Admin: 05/29/19 07:32 Dose: 25 mcg Loratadine (Claritin) [address] [facility] Last Admin: 05/30/19 07:15 Dose: 10 mg Magnesium Oxide (Magnesium Oxide) [address] [facility] Last Admin: 05/30/19 07:15 Dose: 400 mg Montelukast Sodium (Singulair) [address] [facility] Last Admin: 05/29/19 17:16 Dose: 10 mg Pantoprazole Sodium (Protonix Iv) [address] [facility] Last Admin: 05/30/19 04:18 Dose: 40 mg Sertraline HCl (Zoloft) [address] [facility] Last Admin: 05/29/19 20:26 Dose: 50 mg Sodium Chloride (Saline Flush) 10 ml FLUSH ASDIRECTED PRN PRN Reason: Keep Vein Open Last Admin: 05/30/19 07:16 Dose: 10 ml Sodium Chloride (Saline Flush) [address] [facility] Last Admin: 05/30/19 04:54 Dose: 10 ml Temazepam (Restoril) 15 mg PO BEDTIME PRN PRN Reason: Insomnia Last Admin: 05/29/19 21:01 Dose: 15 mg Tramadol HCl (Ultram) 50 mg PO Q6H PRN PRN Reason: Pain (severe 7-10) Last Admin: 05/30/19 08:50 Dose: 50 mg Discontinued Medications Famotidine (Pepcid) 40 mg IVPUSH ONETIME ONE Stop: 05/28/19 01:21 Last Admin: 05/28/19 01:50 Dose: 40 mg Famotidine (Pepcid) Confirm Administered Dose 20 mg .ROUTE .STK-MED ONE Stop: 05/28/19 01:53 Last Admin: 05/28/19 02:12 Dose: Not Given Furosemide (Lasix) 60 mg IVPUSH NOW ONE Stop: 05/30/19 08:24 Lactated Ringer's (Ringers, Lactated) 1,000 mls @ 999 mls/hr IV .BOLUS ONE Stop: 05/28/19 02:20 Last Infusion: 05/28/19 03:30 Dose: Infused Ceftriaxone Sodium 1 gm/ (Sodium Chloride) 100 mls @ 200 mls/hr IV ONETIME ONE Stop: 05/28/19 03:36 Last Admin: 05/28/19 03:50 Dose: 200 mls/hr Lactated Ringer's (Ringers, Lactated) 1,000 mls @ 100 mls/hr IV ASDIRECTED [facility] Last Admin: 05/28/19 06:37 Dose: 100 mls/hr Lactated Ringer's (Ringers, Lactated) 1,000 mls @ 999 mls/hr IV .BOLUS ONE Stop: 05/28/19 09:40 Last Admin: 05/28/19 13:37 Dose: 999 mls/hr Lactated Ringer's (Ringers, Lactated) 1,000 mls @ 60 mls/hr IV ASDIRECTED [facility] Last Admin: 05/29/19 15:07 Dose: 125 mls/hr Ketorolac Tromethamine (Toradol) 15 mg IVPUSH Q6H PRN PRN Reason: Pain (moderate 4-6) Stop: 05/30/19 11:01 Last Admin: 05/28/19 17:49 Dose: 15 mg Ketorolac Tromethamine (Toradol) 30 mg IVPUSH ONETIME ONE Stop: 05/28/19 04:58 Last Admin: 05/28/19 05:31 Dose: 30 mg Levothyroxine Sodium (Levothyroxine) [address] [facility] Last Admin: 05/28/19 21:02 Dose: Not Given Methylprednisolone Sodium Succinate (Solu-Medrol) 125 mg IVPUSH ONETIME ONE Stop: 05/28/19 03:09 Last Admin: 05/28/19 03:45 Dose: 125 mg Ondansetron HCl (Zofran) 4 mg IVPUSH ONETIME ONE Stop: 05/28/19 01:21 Last Admin: 05/28/19 01:59 Dose: 4 mg Pantoprazole Sodium (Protonix Iv) 40 mg IVPUSH ONETIME ONE Stop: 05/28/19 01:21 Last Admin: 05/28/19 02:08 Dose: 40 mg Potassium Chloride (Klor-Con M20) 40 meq PO ONETIME ONE Stop: 05/30/19 08:24
--- NOTE | 2019-05-30 13:03 | PCM.PN ---
- General Info Date of Service: 05/30/19 Admission Dx/Problem (Free Text): Patient admitted for treatment of elevated lactic acid level, suspected gastroenteritis/pneumonia. Subjective Update: Patient complaining of headache. She notes that headache and feeling of lightheadedness is associated with receiving Levaquin IV both yesterday and today. Nausea/emesis resolved. Feeling fatigued. Functional Status: Reports: Tolerating Diet Pain Score: 5 - Review of Systems General: Reports: Fatigue. Denies: Fever, Malaise, Chills, Night Sweats HEENT: Reports: No Symptoms Pulmonary: Reports: No Symptoms. Denies: Shortness of Breath, Pleuritic Chest Pain, Cough, Sputum, Wheezing Cardiovascular: Reports: Lightheadedness. Denies: Chest Pain, Palpitations, Dyspnea on Exertion, Orthopnea, Edema Gastrointestinal: Reports: No Symptoms Genitourinary: Reports: No Symptoms Musculoskeletal: Reports: Other (no acute changes from baseline) Skin: Reports: No Symptoms Neurological: Reports: Dizziness, Headache. Denies: Numbness, Paresthesia, Seizure, Syncope, Tingling, Trouble Speaking, Difficulty Walking, Change in Speech Psychiatric: Reports: No Symptoms - Patient Data Vitals - Most Recent: Last Vital Signs Temp 36.6 C 05/30/19 10:50 Pulse 75 05/30/19 10:50 Resp 18 05/30/19 10:50 BP 160/100 H 05/30/19 10:50 Pulse Ox 97 05/30/19 10:50 Weight - Most Recent: 61.144 kg I&O - Last 24 Hours: Intake & Output 05/29/19 05/30/19 05/30/19 22:59 06:59 14:59 Intake Total 1664 1561 Output Total 600 2000 Balance 1064 -439 Lab Results Last 24 Hours: Laboratory Results - last 24 hr 05/30/19 05/30/19 05/30/19 Range/Units 07:09 07:09 07:09 WBC 5.6 (4.0-10.2) K/uL RBC 3.84 (3.77-5.09) M/uL Hgb 11.5 L (11.7-15.5) g/dL Hct 34.9 (34.0-46.0) % MCV 90.9 (84.0-98.0) fL MCH 29.9 (28.2-33.3) pg MCHC 33.0 (31.7-36.0) g/dL RDW 14.0 (11.2-14.1) % Plt Count 193 (150-350) K/uL Neut % (Auto) 63.3 (45.0-80.0) % Lymph % (Auto) 27.0 (10.0-50.0) % [place] % (Auto) 5.9 (2.0-14.0) % Eos % (Auto) 3.4 (0.0-5.0) % Baso % (Auto) 0.4 (0.0-2.0) % Neut # (Auto) 3.55 (1.40-7.00) K/uL Lymph # (Auto) 1.51 (0.50-3.50) K/uL [place] # (Auto) 0.33 (0.00-1.00) K/uL Eos # (Auto) 0.19 (0.00-0.50) K/uL Baso # (Auto) 0.02 (0.00-0.20) K/uL Sodium 142 (136-145) mmol/L Potassium 3.6 (3.5-5.1) mmol/L Chloride 107 (98-107) mmol/L Carbon Dioxide 28.3 (21.0-32.0) mmol/L BUN 11 (7-18) mg/dL Creatinine 0.90 (0.51-1.17) mg/dL Est Cr Clr Drug Dosing 55.86 mL/min Estimated GFR (MDRD) > 60 mL/min Glucose 84 (74-106) mg/dL Calcium 8.5 (8.5-10.1) mg/dL Iron 59 (50-175) ug/dL TIBC 283 (250-450) ug/dL % Saturation 20.11277 Ferritin 53 (8-388) ng/mL Total Bilirubin 0.2 (0.2-1.0) mg/dL AST 40 H (15-37) U/L ALT 70 (12-78) U/L Alkaline Phosphatase 61 (46-116) IU/L NT-Pro-B Natriuret Pep 1110 H (0-125) pg/mL Total Protein 6.2 L (6.4-8.2) g/dL Albumin 3.0 L (3.4-5.0) g/dL Vitamin B12 426 (193-986) pg/mL Mike Results Last 24 Hours: Microbiology 05/28/19 01:37 Aerobic Blood Culture - Preliminary Blood - Venous - Lab Draw NO GROWTH AFTER 2 DAYS Anaerobic Blood Culture - Preliminary NO GROWTH AFTER 2 DAYS 05/28/19 01:31 Aerobic Blood Culture - Preliminary Blood - Venous NO GROWTH AFTER 2 DAYS Anaerobic Blood Culture - Preliminary NO GROWTH AFTER 2 DAYS 05/28/19 01:59 Urine Culture - Final Urine, Clean Catch MIXED MICHEAL SUGGESTIVE OF CONTAMINATION. 05/28/19 01:31 Quick Strep Confirmation Culture - Final Throat NO GROUP A STREP ISOLATED REFERENCE RANGE: NEGATIVE Group A Streptococcus Rapid Screen - Final NEGATIVE STREP A SCREEN REFERENCE RANGE: NEGATIVE Med Orders - Current: Current Medications Acetaminophen (Tylenol) 650 mg PO Q4H PRN PRN Reason: Pain/Fever Last Admin: 05/30/19 06:32 Dose: 650 mg Albuterol (Proventil Neb Soln) 2.5 mg NEB Q2H PRN PRN Reason: Dyspnea Albuterol/Ipratropium (Duoneb 3.0-0.5 Mg/3 Ml) 3 ml NEB Q4HRRT PRN PRN Reason: Dyspnea Albuterol/Ipratropium (Duoneb 3.0-0.5 Mg/3 Ml) 3 ml NEB Q6HRRT [facility] Last Admin: 05/30/19 07:16 Dose: 3 ml Aspirin (Halfprin) 81 mg PO DAILY [facility] Last Admin: 05/30/19 07:15 Dose: 81 mg Budesonide (Pulmicort) 0.5 mg NEB BIDRT [facility] Last Admin: 05/30/19 07:16 Dose: 0.5 mg Famotidine (Pepcid) 20 mg IVPUSH BID [facility] Last Admin: 05/30/19 07:16 Dose: 20 mg Guaifenesin/Dextromethorphan (Mucinex Dm Er 600-30 Mg) 1 tab PO BID [facility] Last Admin: 05/30/19 07:16 Dose: 1 tab Ceftriaxone Sodium 1 gm/ (Sodium Chloride) 100 mls @ 200 mls/hr IV Q12H [facility] Last Admin: 05/30/19 04:19 Dose: 200 mls/hr Levothyroxine Sodium (Levothyroxine) 25 mcg PO MoWeFr@0700 [facility] Last Admin: 05/29/19 07:32 Dose: 25 mcg Loratadine (Claritin) 10 mg PO DAILY [facility] Last Admin: 05/30/19 07:15 Dose: 10 mg Magnesium Oxide (Magnesium Oxide) 400 mg PO DAILY [facility] Last Admin: 05/30/19 07:15 Dose: 400 mg Montelukast Sodium (Singulair) 10 mg PO QPM [facility] Last Admin: 05/29/19 17:16 Dose: 10 mg Pantoprazole Sodium (Protonix Iv) 40 mg IVPUSH Q12H [facility] Last Admin: 05/30/19 04:18 Dose: 40 mg Sertraline HCl (Zoloft) 50 mg PO BEDTIME [facility] Last Admin: 05/29/19 20:26 Dose: 50 mg Sodium Chloride (Saline Flush) 10 ml FLUSH ASDIRECTED PRN PRN Reason: Keep Vein Open Last Admin: 05/30/19 07:16 Dose: 10 ml Sodium Chloride (Saline Flush) 10 ml FLUSH Q12H [facility] Last Admin: 05/30/19 04:54 Dose: 10 ml Temazepam (Restoril) 15 mg PO BEDTIME PRN PRN Reason: Insomnia Last Admin: 05/29/19 21:01 Dose: 15 mg Tramadol HCl (Ultram) 50 mg PO Q6H PRN PRN Reason: Pain (severe 7-10) Last Admin: 05/30/19 08:50 Dose: 50 mg Discontinued Medications Famotidine (Pepcid) 40 mg IVPUSH ONETIME ONE Stop: 05/28/19 01:21 Last Admin: 05/28/19 01:50 Dose: 40 mg Famotidine (Pepcid) Confirm Administered Dose 20 mg .ROUTE .STK-MED ONE Stop: 05/28/19 01:53 Last Admin: 05/28/19 02:12 Dose: Not Given Furosemide (Lasix) 60 mg IVPUSH NOW ONE Stop: 05/30/19 08:24 Last Admin: 05/30/19 08:50 Dose: Not Given Lactated Ringer's (Ringers, Lactated) 1,000 mls @ 999 mls/hr IV .BOLUS ONE Stop: 05/28/19 02:20 Last Infusion: 05/28/19 03:30 Dose: Infused Ceftriaxone Sodium 1 gm/ (Sodium Chloride) 100 mls @ 200 mls/hr IV ONETIME ONE Stop: 05/28/19 03:36 Last Admin: 05/28/19 03:50 Dose: 200 mls/hr Levofloxacin/Dextrose 500 mg/ (Premix) 100 mls @ 100 mls/hr IV Q24H [facility] Last Admin: 05/30/19 04:54 Dose: 100 mls/hr Lactated Ringer's (Ringers, Lactated) 1,000 mls @ 100 mls/hr IV ASDIRECTED [facility] Last Admin: 05/28/19 06:37 Dose: 100 mls/hr Lactated Ringer's (Ringers, Lactated) 1,000 mls @ 999 mls/hr IV .BOLUS ONE Stop: 05/28/19 09:40 Last Admin: 05/28/19 13:37 Dose: 999 mls/hr Lactated Ringer's (Ringers, Lactated) 1,000 mls @ 60 mls/hr IV ASDIRECTED [facility] Last Admin: 05/29/19 15:07 Dose: 125 mls/hr Ketorolac Tromethamine (Toradol) 15 mg IVPUSH Q6H PRN PRN Reason: Pain (moderate 4-6) Stop: 05/30/19 11:01 Last Admin: 05/28/19 17:49 Dose: 15 mg Ketorolac Tromethamine (Toradol) 30 mg IVPUSH ONETIME ONE Stop: 05/28/19 04:58 Last Admin: 05/28/19 05:31 Dose: 30 mg Levothyroxine Sodium (Levothyroxine) 25 mcg PO BEDTIME [facility] Last Admin: 05/28/19 21:02 Dose: Not Given Methylprednisolone Sodium Succinate (Solu-Medrol) 125 mg IVPUSH ONETIME ONE Stop: 05/28/19 03:09 Last Admin: 05/28/19 03:45 Dose: 125 mg Ondansetron HCl (Zofran) 4 mg IVPUSH ONETIME ONE Stop: 05/28/19 01:21 Last Admin: 05/28/19 01:59 Dose: 4 mg Pantoprazole Sodium (Protonix Iv) 40 mg IVPUSH ONETIME ONE Stop: 05/28/19 01:21 Last Admin: 05/28/19 02:08 Dose: 40 mg Potassium Chloride (Klor-Con M20) 40 meq PO ONETIME ONE Stop: 05/30/19 08:24 Last Admin: 05/30/19 08:50 Dose: Not Given - Exam General: Alert, Oriented, Cooperative, No Acute Distress HEENT: Pupils Equal, Pupils Reactive, EOMI, Mucous Membr. Moist/[place] Neck: Supple Lungs: Clear to Auscultation, Normal Respiratory Effort Cardiovascular: Regular Rate, Regular Rhythm GI/Abdominal Exam: Normal Bowel Sounds, Soft, Non-Tender, No Distention (Female) Exam: Deferred Back Exam: No: CVA Tenderness (L), CVA Tenderness (R), Muscle Spasm Extremities: Normal Inspection, Normal Range of Motion, Non-Tender, Normal Capillary Refill Skin: Warm, Dry Neurological: No New Focal Deficit Psy/Mental Status: Alert, Normal Affect, Normal Mood EKG INTERPRETATION EKG Date: 05/30/19 Time: 12:56 Rhythm: NSR Rate (Beats/Min): 60 [place]: Normal P-Wave: Present QRS: Normal ST-T: Normal QT: Normal Sepsis Event Note - Evaluation Sepsis Screening Result: No Definite Risk - Focused Exam Vital Signs: Vital Signs Temp Temp Pulse Resp BP BP Pulse Ox 05/30/19 10:50 36.6 C 75 18 160/100 H 97 05/30/19 10:45 172/101 H 154/92 H 05/30/19 07:23 36.6 C 65 18 144/90 H 98 05/30/19 06:00 36.8 C 73 16 137/88 98 Date Exam was Performed: 05/30/19 Time Exam was Performed: 13:14 - Problem List & Annotations (1) Elevated lactic acid level SNOMED Code(s): 7409459 Code(s): R79.89 - OTHER SPECIFIED ABNORMAL FINDINGS OF BLOOD CHEMISTRY Status: Acute Priority: Medium Current Visit: Yes Onset Date: 05/28/19 Annotation/Comment:: Elevated lactic acid which as of today has normalized. No clinical evidence of sepsis observed during stay. No fevers. Normal WBC. (2) Gastroenteritis SNOMED Code(s): 64190388 Code(s): K52.9 - NONINFECTIVE GASTROENTERITIS AND COLITIS, UNSPECIFIED Status: Acute Priority: Medium Current Visit: Yes Onset Date: ~05/27/19 Annotation/Comment:: IV Zofran given in the emergency room. No GI complaints at this time. Nausea/dry heaves resolved. (3) Pneumonia SNOMED Code(s): 583485590 Code(s): J18.9 - PNEUMONIA, UNSPECIFIED ORGANISM Status: Acute Priority: High Current Visit: Yes Onset Date: ~05/27/19 Qualifiers: Pneumonia type: due to unspecified organism Laterality: unspecified laterality Lung location: unspecified part of lung Qualified Code(s): J18.9 - Pneumonia, unspecified organism Annotation/Comment:: Admitting provider concerned bilateral pneumonia present during ER exam. Lactic acid elevated. WBC normal. Radiology reviewed chest xray and did not note any focal pneumonia or CHF. Coverage with Rocephin and Levaquin. Will discontinue Levaquin today as patient is getting moderately severe headaches after IV infusion which is an indication to discontinue the mediation. Patient also complaining of feeling a bit dizzy when ambulation. Given that in addition to elevating BP today/history of falling down flight of stairs 3 weeks ago--will obtain head CT to rule out intracranial changes. If normal, anticipate changing patient over to Zithromax for continued coverage. (4) Asthma SNOMED Code(s): 474716623 Code(s): J45.909 - UNSPECIFIED ASTHMA, UNCOMPLICATED Status: Acute Priority: Medium Current Visit: Yes Annotation/Comment:: Stable by history. Patient reports having no SOB/cough/respiratory changes. Change to PRN nebs (5) Pleurisy SNOMED Code(s): 731725769 Code(s): R09.1 - PLEURISY Status: Acute Priority: High Current Visit: Yes Onset Date: 05/27/19 Annotation/Comment:: IV Solu-Medrol given in the emergency room with IV Toradol initiated on admission. Pain complaint currently has resolved. (6) Hypokalemia SNOMED Code(s): 67715018 Code(s): E87.6 - HYPOKALEMIA Status: Chronic Priority: Medium Current Visit: Yes Annotation/Comment:: Normalized (7) Hypothyroidism SNOMED Code(s): 85068626 Code(s): E03.9 - HYPOTHYROIDISM, UNSPECIFIED Status: Chronic Priority: Medium Current Visit: Yes Onset Date: 06/06/14 Annotation/Comment:: TSH normal on 09/26 despite only taking her Synthroid on a 3 times per week basis. Secondary to her emotional status, however, consideration should be given to increasing her Synthroid to a daily at bedtime basis with repeat TSH recommended in 4 weeks. (8) Osteoarthritis SNOMED Code(s): 630909677 Code(s): M19.90 - UNSPECIFIED OSTEOARTHRITIS, UNSPECIFIED SITE Status: Chronic Priority: Medium Current Visit: Yes Annotation/Comment:: Stable by patient history (9) Peptic reflux disease SNOMED Code(s): 682139195 Code(s): K21.9 - GASTRO-ESOPHAGEAL REFLUX DISEASE WITHOUT ESOPHAGITIS Status: Chronic Priority: Medium Current Visit: Yes Annotation/Comment:: Note Hemoccult positive stools significant abdominal complaints during this hospitalization or prior to admission. Note previously treated H. pylori. High -dose IV Pepcid and IV Protonix given in the emergency room with continuation of IV Protonix therapy secondary to IV Toradol and IV Solu-Medrol therapy during the first day of this hospitalization. IV Pepcid is added on 05/31 the current IV Protonix therapy. Continue to observe closely at discharge. Patient should discontinue previous Zantac therapies secondary to recent studies indicating possible carcinogenic effect with this medication. She will be discharged on 20 mg twice daily Prilosec regimen for now with further GI work -up depending on her clinical course. (10) Tobacco abuse counseling SNOMED Code(s): 184971228, 736179587, 664764310 Code(s): Z71.6 - TOBACCO ABUSE COUNSELING Status: Chronic Priority: Medium Current Visit: Yes Annotation/Comment:: Patient counseled on the importance of her stopping smoking with information once again to be provided at discharge. (11) HTN (hypertension) SNOMED Code(s): 56494497 Code(s): I10 - ESSENTIAL (PRIMARY) HYPERTENSION Status: Acute Priority: High Current Visit: Yes Qualifiers: Hypertension type: unspecified Qualified Code(s): I10 - Essential (primary ) hypertension Annotation/Comment:: Increased BP noted today. Also has headache which may be triggering factor. Given history of fall down flight of stairs a few weeks ago/ coplaint of lightheaded sensation when ambulating today, noncontrast head CT ordered. Will continue to monitor BP and headache complaint. - Problem List Review Problem List Initiated/Reviewed/Updated: Yes - My Orders Last 24 Hours: My Active Orders 05/30/19 12:31 LACTIC ACID [CHEM] Routine 05/30/19 12:34 Head wo Cont [CT] Routine 05/30/19 12:35 TROPONIN I [CHEM] Routine EKG 12 Lead [EK] Routine 05/30/19 12:36 EKG Documentation Completion [RC] ASDIRECTED - Assessment Assessment:: As above. - Plan Plan:: As above. Extensive precautions were given to the patient, who is in agreement with the treatment plan. If headache improves/CT negative, anticipate discharge tomorrow on oral antibiotics.
[2019-05-30] MEDS ORDERED: Metoprolol Tartrate 25 MG Tab PO ONE (13:19)
[2019-05-30] MEDS ORDERED: SUMAtriptan 50 MG Tab PO ONE (13:40)
[2019-05-30] MEDS ORDERED: Furosemide 20 MG/2 ML VIAL IVPUSH ONE (13:43)
[2019-05-30] MEDS ORDERED: LORazepam 1 MG Tab PO ONE (17:00)
[2019-05-30] MEDS: Montelukast 10 MG Tab PO SCH (17:34)
[2019-05-30] MEDS ORDERED: Metoprolol Tartrate 50 MG Tab PO ONE (19:08)
[2019-05-30] MEDS: Sertraline 50 MG Tab PO SCH (20:56)
[2019-05-30] MEDS: Temazepam 15 MG Cap PO PRN (20:57)
[2019-05-31 06:06] VITALS: BP 119/84; PULSE 73
[2019-05-31 07:37] LABS: CHLORIDE,CL 103 mmol/L (98-107); SODIUM,NA 140 mmol/L (136-145)
[2019-05-31] MEDS: Aspirin 81 MG Tab.EC PO SCH (07:39)
[2019-05-31] MEDS: Loratadine 10 MG Tab PO SCH (07:39)
[2019-05-31] MEDS: Magnesium Oxide 400 MG Tab PO SCH (07:39)
[2019-05-31] MEDS: Sodium Chloride 0.9% 10 ML Syringe FLUSH SCH (07:40)
[2019-05-31] MEDS ORDERED: Famotidine 20 MG/2 ML SDV IVPUSH SCH (08:00)
[2019-05-31] MEDS ORDERED: Azithromycin 500 MG in Sodium Chloride 0.9% 250 ML IV ONE (08:00)
[2019-05-31] MEDS ORDERED: Pantoprazole 40 MG Vial IVPUSH SCH (08:00)
[2019-05-31] MEDS: Acetaminophen 325 MG Tab PO PRN (08:51)
[2019-05-31] MEDS ORDERED: cefTRIAXone 1 GM in Sodium Chloride 0.9% 100 ML IV ONE (10:00)
--- NOTE | 2019-05-31 11:55 | PCM.DCSUM1 ---
Discharge Summary - Hospital Course Brief History: Evaluated in ER due to not feeling well. Elevated Lactic Acid. Admitted for continued evaluation and treatment of possible pneumonia/ gastroenteritis. Diagnosis: Stroke: No - Discharge Data Discharge Date: 05/31/19 Discharge Disposition: Home, Self-Care 01 Condition: Good - Referral to Home Health Primary Care Physician: Kenyatta Braun PA-C - Discharge Diagnosis/Problem(s) (1) Elevated lactic acid level SNOMED Code(s): 9176140 ICD Code: R79.89 - OTHER SPECIFIED ABNORMAL FINDINGS OF BLOOD CHEMISTRY Status: Acute Priority: Medium Current Visit: Yes Onset Date: 05/28/19 Problem Details: Elevated lactic acid which as of today has normalized. No clinical evidence of sepsis observed during stay. No fevers. Normal WBC. (2) Gastroenteritis SNOMED Code(s): 01541187 ICD Code: K52.9 - NONINFECTIVE GASTROENTERITIS AND COLITIS, UNSPECIFIED Status: Acute Priority: Medium Current Visit: Yes Onset Date: ~05/27/19 Problem Details: IV Zofran given in the emergency room. No GI complaints at this time. Nausea/dry heaves resolved. (3) Pneumonia SNOMED Code(s): 708377697 ICD Code: J18.9 - PNEUMONIA, UNSPECIFIED ORGANISM Status: Acute Priority : High Current Visit: Yes Onset Date: ~05/27/19 Problem Details: Admitting provider concerned bilateral pneumonia present during ER exam. Lactic acid elevated. WBC normal. Radiology reviewed chest xray and did not note any focal pneumonia or CHF. Coverage with Rocephin and Levaquin. Levaquin discontinued as patient is getting moderately severe headaches after IV infusion which is an indication to discontinue the mediation. Patient was also dizzy with ambulation. CT of head obtained due to recent fall down an entire flight of stairs--unremarkable per Radiology. Received Zithromax and Rocephin today. Qualifiers: Pneumonia type: due to unspecified organism Laterality: unspecified laterality Lung location: unspecified part of lung Qualified Code(s): J18.9 - Pneumonia, unspecified organism (4) HTN (hypertension) SNOMED Code(s): 01717871 ICD Code: I10 - ESSENTIAL (PRIMARY) HYPERTENSION Status: Acute Priority: High Current Visit: Yes Problem Details: Significant elevation of BP noted yesterday. No initial change s/p Ativan and Metoprolol. Sudden improvement noted late last evening. Has remained in normal range since then. Patient has own BP monitor at home and will be keeping track of trends after discharge. Headache and anxiety felt to be contributors to yesterday's elevation. Qualifiers: Hypertension type: unspecified Qualified Code(s): I10 - Essential (primary ) hypertension (5) Asthma SNOMED Code(s): 990129225 ICD Code: J45.909 - UNSPECIFIED ASTHMA, UNCOMPLICATED Status: Acute Priority: Medium Current Visit: Yes Problem Details: Stable by history. Patient reports having no SOB/cough/respiratory changes. Change to PRN nebs (6) Pleurisy SNOMED Code(s): 460063244 ICD Code: R09.1 - PLEURISY Status: Acute Priority: High Current Visit: Yes Onset Date: 05/27/19 Problem Details: IV Solu-Medrol given in the emergency room with IV Toradol initiated on admission. Pain complaint currently has resolved. (7) Hypokalemia SNOMED Code(s): 19030952 ICD Code: E87.6 - HYPOKALEMIA Status: Chronic Priority: Medium Current Visit: Yes Problem Details: Normalized (8) Hypothyroidism SNOMED Code(s): 68631839 ICD Code: E03.9 - HYPOTHYROIDISM, UNSPECIFIED Status: Chronic Priority: Medium Current Visit: Yes Onset Date: 06/06/14 Problem Details: TSH normal on 09/26 despite only taking her Synthroid on a 3 times per week basis. Secondary to her emotional status, however, consideration should be given to increasing her Synthroid to a daily at bedtime basis with repeat TSH recommended in 4 weeks. (9) Osteoarthritis SNOMED Code(s): 576008886 ICD Code: M19.90 - UNSPECIFIED OSTEOARTHRITIS, UNSPECIFIED SITE Status: Chronic Priority: Medium Current Visit: Yes Problem Details: Stable by patient history (10) Peptic reflux disease SNOMED Code(s): 080251442 ICD Code: K21.9 - GASTRO-ESOPHAGEAL REFLUX DISEASE WITHOUT ESOPHAGITIS Status: Chronic Priority: Medium Current Visit: Yes Problem Details: Note Hemoccult positive stools significant abdominal complaints during this hospitalization or prior to admission. Note previously treated H. pylori. High -dose IV Pepcid and IV Protonix given in the emergency room with continuation of IV Protonix therapy secondary to IV Toradol and IV Solu-Medrol therapy during the first day of this hospitalization. IV Pepcid is added on 05/31 the current IV Protonix therapy. Continue to observe closely at discharge. Patient should discontinue previous Zantac therapies secondary to recent studies indicating possible carcinogenic effect with this medication. She will be discharged on 20 mg twice daily Prilosec regimen for now with further GI work -up depending on her clinical course. (11) Tobacco abuse counseling SNOMED Code(s): 005807966, 411459502, 185088237 ICD Code: Z71.6 - TOBACCO ABUSE COUNSELING Status: Chronic Priority: Medium Current Visit: Yes Problem Details: Patient counseled on the importance of her stopping smoking with information once again to be provided at discharge. - Patient Summary/Data Hospital Course: As above. Initially uncertain if patient was becoming septic given her malaise in ER accompanied by elevated Lactic Acid. Pleuritic type pain was suggestive of possible pneumonia process, however chest xray clear. WBC normal. _Negative Influenza test/negative blood cultures. Nausea/dry heaves suggestive of gastroenteritis/GI etiology, which could also trigger LUQ pain under rib margin. Patient received antibiotics to cover for potential pneumonia/sepsis. GI complaints resolved with antiemetics. Noted to have + occult blood test stool. IV Protonix/Pepcid given. Lactic acid took several days to improve. WBC never elevated. Brief decrease in Hgb, thought to be due to dilutional effects of IV fluids. This normalized after single dose of Lasix. Patient developed headache and eventually dizziness after Levaquin infusions. Levaquin stopped yesterday because of this. Significantly elevated BPs developed yesterday along with headache and neither improved much despite pain meds/ativan /metoprolol. Head CT obtained as she did have history of falling down an entire flight of stairs 3 weeks ago. This was unremarkable. BP finally improved late evening. Today patient has mild headache/bilateral. She would like to go home. Suspect that viral syndrome/gastroenteritis may have been etiology for presenting illness. Patient does have prescriptions for Augmentin and Levaquin which her picked up yesterday. We discussed continuing the antibiotics but patient said that she feels as though she has "had enough antibiotics" and does not plan to continue the meds once discharged. She is cautioned to continue to observe for changes and follow up if she has any additional problems /worsening symptoms. She is to follow up with primary provider and have stool rechecked for occult blood. - Patient Instructions Diet: Usual Diet as Tolerated Activity: As Tolerated Driving: May Drive Today Showering/Bathing: May Shower Other/Special Instructions: Follow up with primary provider to have your stool rechecked for blood. Start keeping track of your BP at home and monitor trends. Follow up as needed if elevated. You have chosen to not continue antibiotics after being discharged from the hospital. Be observant and watch for any changes that may signify return of original symptoms/fevers/etc that indicate that you need to be rechecked! - Discharge Plan *PRESCRIPTION DRUG MONITORING PROGRAM REVIEWED*: Not Applicable *COPY OF PRESCRIPTION DRUG MONITORING REPORT IN PATIENT MIRIAM: Not Applicable Home Medications: Home Meds Multivitamin [Daily Vitamin] 1 tab PO DAILY 06/11/13 [History] Fluticasone/Salmeterol [Advair 250-50] 1 puff INH DAILY PRN 01/22/14 [History] Sertraline HCl [Zoloft] 1 tab PO BEDTIME 06/06/14 [History] LORazepam 0.5 mg PO TID PRN 11/01/15 [History] Aspirin [Halfprin] 81 mg PO DAILY 12/28/17 [History] Montelukast Sodium [Singulair] 10 mg PO QPM 12/28/17 [History] Levothyroxine 25 mcg PO ASDIRECTED 02/26/19 [History] Cannabidiol (Cbd) Extract [CBD Oil] 0 drop TOP DAILY 05/28/19 [History] Ezetimibe [Zetia] 5 mg PO QPM 05/28/19 [History] Forms: ED Department Discharge Referrals: Kenyatta Braun PA-C [Primary Care Provider] - - Discharge Summary/Plan Comment DC Time >30 min.: No - General Info Date of Service: 05/31/19 Admission Dx/Problem (Free Text: Patient admitted for treatment of elevated lactic acid level, suspected gastroenteritis/pneumonia. Subjective Update: Feels improved. Headache much better. STill present, mild, bilateral. No dizziness today. No other acute changes/complaints. Functional Status: Reports: Pain Controlled, Tolerating Diet, Ambulating, Urinating. Denies: New Symptoms - Review of Systems General: Reports: No Symptoms HEENT: Reports: No Symptoms Pulmonary: Reports: No Symptoms. Denies: Pleuritic Chest Pain, Cough Cardiovascular: Reports: No Symptoms. Denies: Chest Pain, Lightheadedness Gastrointestinal: Reports: No Symptoms. Denies: Abdominal Pain, Nausea, Vomiting Genitourinary: Reports: No Symptoms Musculoskeletal: Reports: No Symptoms Skin: Reports: No Symptoms Neurological: Reports: Headache. Denies: Confusion, Dizziness, Numbness, Paresthesia, Trouble Speaking, Difficulty Walking, Weakness, Change in Speech Psychiatric: Reports: No Symptoms - Patient Data Vitals - Most Recent: Last Vital Signs Temp 37.3 C 05/31/19 06:00 Pulse 73 05/31/19 06:00 Resp 16 05/31/19 06:00 BP 119/84 05/31/19 06:00 Pulse Ox 96 05/31/19 06:00 Weight - Most Recent: 59.058 kg I&O - Last 24 hours: Intake & Output 05/30/19 05/31/19 05/31/19 22:59 06:59 14:59 Intake Total 490 0 600 Output Total 1900 200 Balance -1410 -200 600 Lab Results - Last 24 hrs: Laboratory Results - last 24 hr 05/30/19 05/30/19 05/30/19 Range/Units 12:45 12:45 16:51 WBC (4.0-10.2) K/uL RBC (3.77-5.09) M/uL Hgb (11.7-15.5) g/dL Hct (34.0-46.0) % MCV (84.0-98.0) fL MCH (28.2-33.3) pg MCHC (31.7-36.0) g/dL RDW (11.2-14.1) % Plt Count (150-350) K/uL Neut % (Auto) (45.0-80.0) % Lymph % (Auto) (10.0-50.0) % Perkins % (Auto) (2.0-14.0) % Eos % (Auto) (0.0-5.0) % Baso % (Auto) (0.0-2.0) % Neut # (Auto) (1.40-7.00) K/uL Lymph # (Auto) (0.50-3.50) K/uL Perkins # (Auto) (0.00-1.00) K/uL Eos # (Auto) (0.00-0.50) K/uL Baso # (Auto) (0.00-0.20) K/uL Sodium (136-145) mmol/L Potassium (3.5-5.1) mmol/L Chloride (98-107) mmol/L Carbon Dioxide (21.0-32.0) mmol/L BUN (7-18) mg/dL Creatinine (0.51-1.17) mg/dL Est Cr Clr Drug Dosing mL/min Estimated GFR (MDRD) mL/min Glucose (74-106) mg/dL POC Glucose 93 (65-110) mg/dl Lactic Acid 0.9 (0.4-2.0) mmol/L Calcium (8.5-10.1) mg/dL Troponin I 0.000 (0.000-0.056) ng/mL 05/31/19 05/31/19 05/31/19 Range/Units 07:12 07:12 07:12 WBC 5.1 (4.0-10.2) K/uL RBC 4.47 (3.77-5.09) M/uL Hgb 13.2 D (11.7-15.5) g/dL Hct 39.8 (34.0-46.0) % MCV 89.0 (84.0-98.0) fL MCH 29.5 (28.2-33.3) pg MCHC 33.2 (31.7-36.0) g/dL RDW 13.7 (11.2-14.1) % Plt Count 244 (150-350) K/uL Neut % (Auto) 55.4 (45.0-80.0) % Lymph % (Auto) 30.1 (10.0-50.0) % Perkins % (Auto) 7.4 (2.0-14.0) % Eos % (Auto) 6.3 H (0.0-5.0) % Baso % (Auto) 0.8 (0.0-2.0) % Neut # (Auto) 2.84 (1.40-7.00) K/uL Lymph # (Auto) 1.54 (0.50-3.50) K/uL Perkins # (Auto) 0.38 (0.00-1.00) K/uL Eos # (Auto) 0.32 (0.00-0.50) K/uL Baso # (Auto) 0.04 (0.00-0.20) K/uL Sodium 140 (136-145) mmol/L Potassium 3.7 (3.5-5.1) mmol/L Chloride 103 (98-107) mmol/L Carbon Dioxide 29.4 (21.0-32.0) mmol/L BUN 20 H (7-18) mg/dL Creatinine 0.93 (0.51-1.17) mg/dL Est Cr Clr Drug Dosing 54.06 mL/min Estimated GFR (MDRD) > 60 mL/min Glucose 93 (74-106) mg/dL POC Glucose (65-110) mg/dl Lactic Acid 0.9 (0.4-2.0) mmol/L Calcium 9.0 (8.5-10.1) mg/dL Troponin I (0.000-0.056) ng/mL TUSHAR Results - Last 24 hrs: Microbiology 05/28/19 01:37 Aerobic Blood Culture - Preliminary Blood - Venous - Lab Draw NO GROWTH AFTER 3 DAYS Anaerobic Blood Culture - Preliminary NO GROWTH AFTER 3 DAYS 05/28/19 01:31 Aerobic Blood Culture - Preliminary Blood - Venous NO GROWTH AFTER 3 DAYS Anaerobic Blood Culture - Preliminary NO GROWTH AFTER 3 DAYS Med Orders - Current: Current Medications Acetaminophen (Tylenol) 650 mg PO Q4H PRN PRN Reason: Pain/Fever Last Admin: 05/31/19 08:51 Dose: 650 mg Albuterol (Proventil Neb Soln) 2.5 mg NEB Q2H PRN PRN Reason: Dyspnea Aspirin (Halfprin) 81 mg PO DAILY [facility] Last Admin: 05/31/19 07:39 Dose: 81 mg Famotidine (Pepcid) 20 mg IVPUSH DAILY [facility] Last Admin: 05/31/19 07:40 Dose: 20 mg Levothyroxine Sodium (Levothyroxine) 25 mcg PO MoWeFr@0700 [facility] Last Admin: 05/29/19 07:32 Dose: 25 mcg Loratadine (Claritin) 10 mg PO DAILY [facility] Last Admin: 05/31/19 07:39 Dose: 10 mg Magnesium Oxide (Magnesium Oxide) 400 mg PO DAILY [facility] Last Admin: 05/31/19 07:39 Dose: 400 mg Montelukast Sodium (Singulair) 10 mg PO QPM [facility] Last Admin: 05/30/19 17:34 Dose: 10 mg Pantoprazole Sodium (Protonix Iv) 40 mg IVPUSH DAILY [facility] Last Admin: 05/31/19 07:39 Dose: 40 mg Sertraline HCl (Zoloft) 50 mg PO BEDTIME [facility] Last Admin: 05/30/19 20:56 Dose: 50 mg Sodium Chloride (Saline Flush) 10 ml FLUSH ASDIRECTED PRN PRN Reason: Keep Vein Open Last Admin: 05/30/19 14:24 Dose: 10 ml Sodium Chloride (Saline Flush) 10 ml FLUSH Q12H [facility] Last Admin: 05/31/19 07:40 Dose: 10 ml Temazepam (Restoril) 15 mg PO BEDTIME PRN PRN Reason: Insomnia Last Admin: 05/30/19 20:57 Dose: 15 mg Tramadol HCl (Ultram) 50 mg PO Q6H PRN PRN Reason: Pain (severe 7-10) Last Admin: 05/30/19 08:50 Dose: 50 mg Discontinued Medications Albuterol/Ipratropium (Duoneb 3.0-0.5 Mg/3 Ml) 3 ml NEB Q4HRRT PRN PRN Reason: Dyspnea Albuterol/Ipratropium (Duoneb 3.0-0.5 Mg/3 Ml) 3 ml NEB Q6HRRT [facility] Last Admin: 05/30/19 07:16 Dose: 3 ml Budesonide (Pulmicort) 0.5 mg NEB BIDRT [facility] Last Admin: 05/30/19 07:16 Dose: 0.5 mg Famotidine (Pepcid) 40 mg IVPUSH ONETIME ONE Stop: 05/28/19 01:21 Last Admin: 05/28/19 01:50 Dose: 40 mg Famotidine (Pepcid) Confirm Administered Dose 20 mg .ROUTE .STK-MED ONE Stop: 05/28/19 01:53 Last Admin: 05/28/19 02:12 Dose: Not Given Famotidine (Pepcid) 20 mg IVPUSH BID [facility] Last Admin: 05/30/19 07:16 Dose: 20 mg Furosemide (Lasix) 60 mg IVPUSH NOW ONE Stop: 05/30/19 08:24 Last Admin: 05/30/19 08:50 Dose: Not Given Furosemide (Lasix) 10 mg IVPUSH NOW ONE Stop: 05/30/19 13:44 Last Admin: 05/30/19 14:24 Dose: 10 mg Guaifenesin/Dextromethorphan (Mucinex Dm Er 600-30 Mg) 1 tab PO BID [facility] Last Admin: 05/30/19 07:16 Dose: 1 tab Lactated Ringer's (Ringers, Lactated) 1,000 mls @ 999 mls/hr IV .BOLUS ONE Stop: 05/28/19 02:20 Last Infusion: 05/28/19 03:30 Dose: Infused Ceftriaxone Sodium 1 gm/ (Sodium Chloride) 100 mls @ 200 mls/hr IV ONETIME ONE Stop: 05/28/19 03:36 Last Admin: 05/28/19 03:50 Dose: 200 mls/hr Ceftriaxone Sodium 1 gm/ (Sodium Chloride) 100 mls @ 200 mls/hr IV Q12H [facility] Last Admin: 05/30/19 04:19 Dose: 200 mls/hr Levofloxacin/Dextrose 500 mg/ (Premix) 100 mls @ 100 mls/hr IV Q24H [facility] Last Admin: 05/30/19 04:54 Dose: 100 mls/hr Lactated Ringer's (Ringers, Lactated) 1,000 mls @ 100 mls/hr IV ASDIRECTED [facility] Last Admin: 05/28/19 06:37 Dose: 100 mls/hr Lactated Ringer's (Ringers, Lactated) 1,000 mls @ 999 mls/hr IV .BOLUS ONE Stop: 05/28/19 09:40 Last Admin: 05/28/19 13:37 Dose: 999 mls/hr Lactated Ringer's (Ringers, Lactated) 1,000 mls @ 60 mls/hr IV ASDIRECTED [facility] Last Admin: 05/29/19 15:07 Dose: 125 mls/hr Azithromycin 500 mg/ Sodium (Chloride) 250 mls @ 250 mls/hr IV ONETIME ONE Stop: 05/31/19 08:59 Last Admin: 05/31/19 07:36 Dose: Not Given Ceftriaxone Sodium 1 gm/ (Sodium Chloride) 100 mls @ 200 mls/hr IV ONETIME ONE Stop: 05/31/19 10:29 Last Admin: 05/31/19 09:49 Dose: Not Given Ketorolac Tromethamine (Toradol) 15 mg IVPUSH Q6H PRN PRN Reason: Pain (moderate 4-6) Stop: 05/30/19 11:01 Last Admin: 05/28/19 17:49 Dose: 15 mg Ketorolac Tromethamine (Toradol) 30 mg IVPUSH ONETIME ONE Stop: 05/28/19 04:58 Last Admin: 05/28/19 05:31 Dose: 30 mg Levothyroxine Sodium (Levothyroxine) 25 mcg PO BEDTIME [facility] Last Admin: 05/28/19 21:02 Dose: Not Given Lorazepam (Ativan) 1 mg PO ONETIME ONE Stop: 05/30/19 17:01 Last Admin: 05/30/19 17:34 Dose: 1 mg Methylprednisolone Sodium Succinate (Solu-Medrol) 125 mg IVPUSH ONETIME ONE Stop: 05/28/19 03:09 Last Admin: 05/28/19 03:45 Dose: 125 mg Metoprolol Tartrate (Lopressor) 25 mg PO ONETIME ONE Stop: 05/30/19 13:20 Last Admin: 05/30/19 13:39 Dose: 25 mg Metoprolol Tartrate (Lopressor) 50 mg PO ONETIME ONE Stop: 05/30/19 19:09 Last Admin: 05/30/19 20:56 Dose: Not Given Ondansetron HCl (Zofran) 4 mg IVPUSH ONETIME ONE Stop: 05/28/19 01:21 Last Admin: 05/28/19 01:59 Dose: 4 mg Pantoprazole Sodium (Protonix Iv) 40 mg IVPUSH ONETIME ONE Stop: 05/28/19 01:21 Last Admin: 05/28/19 02:08 Dose: 40 mg Pantoprazole Sodium (Protonix Iv) 40 mg IVPUSH Q12H [facility] Last Admin: 05/30/19 04:18 Dose: 40 mg Potassium Chloride (Klor-Con M20) 40 meq PO ONETIME ONE Stop: 05/30/19 08:24 Last Admin: 05/30/19 08:50 Dose: Not Given Sodium Chloride (Saline Flush) 10 ml FLUSH Q12H [facility] Last Admin: 05/30/19 04:54 Dose: 10 ml Sumatriptan Succinate (Imitrex) 50 mg PO ONETIME ONE Stop: 05/30/19 13:41 Last Admin: 05/30/19 14:24 Dose: 50 mg - Exam General: Reports: Alert, Oriented, Cooperative, No Acute Distress HEENT: Reports: Pupils Equal, Pupils Reactive, EOMI, Mucous Membr. Moist/[place] Neck: Reports: Supple Lungs: Reports: Clear to Auscultation, Normal Respiratory Effort Cardiovascular: Reports: Regular Rate, Regular Rhythm GI/Abdominal Exam: Normal Bowel Sounds, Soft, Non-Tender, No Distention (Female) Exam: Deferred Rectal (Female) Exam: Deferred Back Exam: Denies: Muscle Spasm Extremities: Normal Range of Motion, Normal Capillary Refill Skin: Reports: Warm, Dry, Intact Neurological: Reports: No New Focal Deficit Psy/Mental Status: Reports: Alert, Normal Affect, Normal Mood
== END 2019-05-31 12:23 | disposition home or self-care (01) | DRG 249 ==
LOC: LL.ED 00:38 → UNDOADMIN 04:00 → LL.MS 04:00
PROVIDERS: ADMIT Family Medicine; ATTEND Family Medicine
DX: K52.9 Noninfective gastroenteritis and colitis, unspecified (principal); J18.9 Pneumonia, unspecified organism; J45.901 Unspecified asthma with (acute) exacerbation; E88.09 Other disorders of plasma-protein metabolism, not elsewhere classified; E83.51 Hypocalcemia; R09.1 Pleurisy; E87.6 Hypokalemia; E03.9 Hypothyroidism, unspecified; J30.9 Allergic rhinitis, unspecified; R79.89 Other specified abnormal findings of blood chemistry; R42 Dizziness and giddiness; G44.40 Drug-induced headache, not elsewhere classified, not intractable; T36.8X5A Adverse effect of other systemic antibiotics, initial encounter; M19.90 Unspecified osteoarthritis, unspecified site; K21.9 Gastro-esophageal reflux disease without esophagitis; I25.10 Atherosclerotic heart disease of native coronary artery without angina pectoris; E78.00 Pure hypercholesterolemia, unspecified; K59.09 Other constipation; F41.8 Other specified anxiety disorders; D64.9 Anemia, unspecified; Z71.6 Tobacco abuse counseling; Z87.442 Personal history of urinary calculi; Z87.440 Personal history of urinary (tract) infections; Z88.5 Allergy status to narcotic agent; Z88.8 Allergy status to other drugs, medicaments and biological substances; Z79.52 Long term (current) use of systemic steroids; Z79.890 Hormone replacement therapy; Z79.899 Other long term (current) drug therapy
CPT/HCPCS: 36415; 70450; 71046; 74022; 80048; 80053; 81001; 82150; 82272; 82607; 82728; 82962; 83540; 83550; 83605; 83690; 83735; 83880; 84443; 84484; 84550; 84703; 85025; 85610; 85730; 87040; 87081; 87086; 87430; 87804; 93005; 94640; 96374; 96375; 99285-25; A9270-GY; C9113; J0696; J1885; J1940; J1956; J2405; J2930; J3490; J7050; J7120; J7620-GY

== ENCOUNTER 2020-05-31 13:07 | Emergency (ER) | payer BC ==
[2020-05-31] MEDS ORDERED: Lactated Ringers 1,000 ML IV ONE (13:17)
[2020-05-31] MEDS ORDERED: Pantoprazole 40 MG Vial IVPUSH ONE (13:17)
[2020-05-31] MEDS ORDERED: Ondansetron 4 MG/2 ML SDV IVPUSH ONE (13:17)
[2020-05-31] MEDS ORDERED: Famotidine 20 MG/2 ML SDV IVPUSH ONE (13:17)
[2020-05-31] MEDS ORDERED: Sodium Chloride 0.9% 10 ML Syringe FLUSH PRN (13:17)
--- NOTE | 2020-05-31 13:17 | EDM.PDOC ---
ED HPI GENERAL MEDICAL PROBLEM - General Chief Complaint: Genitourinary Problem Stated Complaint: UTI, Nausea Time Seen by Provider: 05/31/20 13:10 Source of Information: Reports: Patient, Old Records ([facility] chart/EMR) History Limitations: Reports: No Limitations - History of Present Illness INITIAL COMMENTS - FREE TEXT/NARRATIVE: The patient drove herself to the emergency room via private automobile for evaluation of a fever of 99.9 degrees associated with some dysuria and nonspecific generalized weakness, 9/10 generalized arthralgias and nausea with 6 50 mg of Tylenol taken at 3 AM when her symptoms started, however she did throw that medication up immediately. Mild persistent nausea with no known exposure to infection, food poisoning, etc.. The patient was recently treated with Cipro for a UTI with persistent mild dysuria, however no colic or other UTI symptoms. No recent history of abdominal pain, heartburn, diarrhea, melena, gross hematoc hezia, or any food intolerance, including fatty foods, etc.. The patient also denies any recent cough, wheezing, dyspnea, etc.. The patient denies any chest pain/pressure, heart flutter, dizziness, orthostasis, orthopnea, diaphoresis, paresthesias, recent decreased exercise tolerance, or any other anginal-type symptoms. Onset: Today, Gradual Onset Date: 05/31/20 Onset Time: 03:00 Duration: Constant, Getting Worse Location: Reports: Generalized Quality: Reports: Ache, Same as Previous Episode Severity: Severe Improves with: Reports: None Worsens with: Reports: None Context: Reports: Other (As above). Denies: Sick Contact, Trauma Associated Symptoms: Reports: Fever/Chills, Nausea/Vomiting. 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 Generalized Pain Score (Numeric/FACES): 9 - Related Data Allergies Allergy/AdvReac Type Severity Reaction Status Date / Time fluticasone propionate Allergy Hives Verified 05/28/19 00:41 [From Flonase] oxycodone Allergy Vomiting Verified 05/28/19 00:41 Home Meds: Home Meds Fluticasone/Salmeterol [Advair 250-50] 1 puff INH DAILY PRN 01/22/14 [History] Sertraline HCl [Zoloft] 1 tab PO BEDTIME 06/06/14 [History] LORazepam 0.5 mg PO TID PRN 11/01/15 [History] Montelukast Sodium [Singulair] 10 mg PO QPM 12/28/17 [History] Levothyroxine 50 mcg PO ASDIRECTED 02/26/19 [History] Ezetimibe [Zetia] 10 mg PO QPM 05/28/19 [History] Benralizumab [Fasenra Pen] 1 dose SUBCUT Q30D 05/31/20 [History] Budesonide [Pulmicort] 0.25 mg .XX BID 05/31/20 [History] L.acidoph,Paracasei, B.lactis [Probiotic] 1 each PO DAILY 05/31/20 [History] Magnesium Oxide [Magnesium] 400 mg PO DAILY 05/31/20 [History] Nitrofurantoin Monohyd/M-Cryst [Macrobid 100 mg Capsule] 100 mg PO BIDMEALS #20 capsule 05/31/20 [Rx] Sulfamethoxazole/Trimethoprim [Bactrim Ds Tablet] 1 each PO MOWEFR 05/31/20 [History] predniSONE [Prednisone] 5 mg PO DAILY 05/31/20 [History] Past Medical History HEENT History: Reports: Allergic Rhinitis, Impaired Vision, Other (See Below). Denies: Cataract, Glaucoma, Hard of Hearing, Macular Degeneration, Otitis Media, Retinal Detachment Other HEENT History: Wears glasses, recurrent bilateral nasal polyps Cardiovascular History: Reports: CAD, High Cholesterol, Syncope, Other (See Below). Denies: Afib, Aneurysm, Arrhythmia, Blood Clots/VTE/DVT, Heart Failure, Heart Murmur, Hypertension, IA, PVD Other Cardiovascular History: Mild coronary artery disease by heart catheterization on 09/28/15 with only 20% stenosis noted at that time, syncope on 12/20/08 and 01/03/06 Respiratory History: Reports: Asthma, Bronchitis, Recurrent, Intubation, Previous, Pneumonia, Recurrent, Pulmonary Fibrosis, Other (See Below). Denies: COPD, Intubation, Difficult, Pneumothorax, Sleep Apnea, TB Other Respiratory History: Pulmonary fibrosis by chest x-ray. 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 Bilateral pulmonary nodules by CT scans in 2018 with some mild progression of right upper lobe pulmonary nodule at time of last CT scan in November 2019 as below. Note eosinophilia currently under treatment as below. Gastrointestinal History: Reports: Chronic Constipation, Diverticulosis, GERD, Helicobacter Pylori, Other (See Below). Denies: Bowel Obstruction, Celiac Disease, Cholelithiasis, Chronic Diarrhea, Colon Polyp, Fatty Liver, Fecal Incontinence, Gastritis, Hepatitis, Hiatal Hernia, Inflammatory Bowel Disease, Irritable Bowel Syndrome, Jaundice, Pancreatitis, PUD Other Gastrointestinal History: Previously treated H. pylori. Benign splenic cysts. Genitourinary History: Reports: Renal Calculus, UTI, Recurrent, Other (See Below). Denies: Acute Renal Failure, Chronic Renal Insuffiency, Retention, Urinary, STD, Urinary Incontinence Other Genitourinary History: Questionable left-sided urolithiasis on 12/28/2017. 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 Denies: Dysfunctional Uterine Bleeding, Endometriosis, Spontaneous : 4 Para: 4 LMP (Approximate): Other (See Below) Other DUST BRUSH ASSEMBLER History: Full term without complications during pregnancies or deliveries, menopause in 2012 with occasional menopausal symptoms. Benign fibroid by pelvic ultrasound on 06/17/2019. Musculoskeletal History: Reports: Arthritis, Back Pain, Chronic, Neck Pain, Chronic, Osteoarthritis, Other (See Below). Denies: Amputation, Fracture, Gout, RA, SLE Other Musculoskeletal History: Statin intolerance with myalgias on 12/28/2017. Neurological History: Reports: Headaches, Chronic, Migraines, Vertigo, Other (See Below). Denies: Alzheimers Disease, Cerebral Aneurysms, CVA, Head Trauma, MS, Neuropathy, Peripheral, Parkinson's, Seizure, TIA Other Neuro History: Mixed migraine and tension headaches with migraine headaches mostly at time of menopause Psychiatric History: Reports: Anxiety, Depression. Denies: Abuse, Victim of, ADD, ADHD, Addiction, Dementia, Psych Hospitalization(s), Psychosis, PTSD, Suicide Attempt, Suicidal Ideation Endocrine/Metabolic History: Reports: Hypokalemia, Hypomagnesemia, Hypothyroidism, Obesity/BMI 30+, Other (See Below). Denies: Diabetes, Gestational, Diabetes, Type I, Diabetes, Type II, Diabetes Mellitus, Type 3c, IDDM Other Endocrine/Metabolic History: Hypoalbuminemia. Hypocalcemia. Hematologic History: Reports: Other (See Below) (Eosinophilia with current Faserna therapy). Denies: Anemia, Blood Transfusion(s), Iron Deficiency Immunologic History: Reports: Immunosuppression, Other (See Below). Denies: AIDS, HIV, SLE Other Immunologic History: Chronic prednisone therapy Oncologic (Cancer) History: Reports: None. Denies: Basal Cell Carcinoma, Breast, Cervix, Colon, Hodgkin's Lymphoma, Leukemia, Lung, Lymphoma, Malignant Melanoma, Non-Hodgkin's Lymphoma, Ovarian, Squamous Cell Carcinoma, Uterine Dermatologic History: Reports: None. Denies: Eczema, Psoriasis - Infectious Disease History Infectious Disease History: Reports: Chicken Pox, Helicobacter Pylori, Measles. Denies: C-Difficile, Meningitis, Mononucleosis, MRSA, Mumps, Pertussis (Whooping Cough), Rheumatic Fever, Rubella, Scarlet Fever, Shingles, TB, VRE - Past Surgical History Head Surgeries/Procedures: Reports: None HEENT Surgical History: Reports: Naso-Sinus Surgery, Oral Surgery, Polypectomy, Other (See Below). Denies: Adenoidectomy, Cataract Surgery, Eye Surgery, Laser Surgery, LASIK, Myringotomy w Tube(s), Tonsillectomy Other HEENT Surgeries/Procedures: Last sinus surgery for nasal polyp removal in March 2018 with previous sinus surgery 1992. [place] teeth extraction x4 at age 23 with additional multiple teeth extractions. Cardiovascular Surgical History: Reports: None. Denies: Varicose Respiratory Surgical History: Reports: None. Denies: Thoracentesis GI Surgical History: Reports: Colonoscopy, EGD, Other (See Below). Denies: Appendectomy, Cholecystectomy, Hernia, Abdominal, Hernia, Inguinal, Hernia Repair/Other, Polypectomy Other GI Surgeries/Procedures: Colonoscopy and EGD in about 2010. Female Surgical History: Reports: Tubal Ligation, Other (See Below). Denies: Breast Biopsy, Section, D&C, Hysterectomy, Salpingo-Oophorectomy Other Female Surgeries/Procedures: Tubal ligation in 1989. Endocrine Surgical History: Reports: None. Denies: Thyroid Biopsy Neurological Surgical History: Reports: Other (See Below). Denies: C-Spine, Discectomy, Laminectomy, Lumbar Spine, Sacral Spine, Spinal Fusion, Thoracic Spine Other Neurological Surgeries/Procedures: Previous epidural steroid injections in L4-L5 on 07/25/2015. Musculoskeletal Surgical History: Reports: Arthroscopic Procedure, Other (See Below). Denies: Carpal Tunnel, Ganglion Cyst, Joint Replacement, ORIF, Shoulder Surgery Other Musculoskeletal Surgeries/Procedures:: Right arthroscopic hip surgery including IT band lengthening on 06/23/2014. Oncologic Surgical History: Reports: None Dermatological Surgical History: Reports: None - Past Imaging History Past Imaging History: Reports: Angiography (Catheterization on 09/28/2015 with results as above.), Carotid US (12/31/2017), CAT Scan (CT of the abdomen and pelvis on 11/25/2019, 12/02/2018 and 12/28/2017. CT of the head on 05/30/2019 and 05/11/2019. CT of the neck/soft tissue on 02/25/2019. CT of the chest with contrast 11/25/[address] scan of the chest on 01/13/2018. CTA of the chest on 01/06/2018.), DEXA Scan (11/17/2018), Holter Monitor (May 2019 with results pending), Mammogram (Last on 11/12/2018.), MRI (Right hip on 12/10/2016. Lumbar spine on 01/05/2019 and 09/27/2016. Thoracic spine on 03/23/2014.), Stress Testing (Stress test at [facility] in February 2015 with previous evaluation on 03/19/2013 with normal ejection fraction of 76%. Additional previous evaluation on 02/14/2006), Ultrasound (Thyroid ultrasound on 07/03/2017, 07/16/2016 and 09/23/2001. Pelvic ultrasound on 06/17/2019, 11/14/2018, 12/31/2017 and 12/28/2008. Renal ultrasound on 11/30/2015.) Social & Family History - Family History HEENT: Reports: Allergic Rhinitis, Other (See Below). Denies: Glaucoma, Macular Degeneration, Retinal Detachment Other HEENT Family History: Allergic rhinitis in multiple family members Cardiac: Reports: Afib, Arrhythmia, Bypass, CAD, Cardiomyopathy, Heart Failure, Heart Murmur, High Cholesterol, Hypertension, IA, Stent, Other (See Below). Denies: Aneurysm, Blood Clots/VTE/DVT Other Cardiac Family History: Brother with atrial fibrillation, sister with acute IA and three-vessel CABG at age 50, brother with CHF secondary to fatal IA at age 60, brother with heart murmur secondary to rheumatic fever, hyperlipidemia and hypertension in 3 brothers and one sister, brother with fatal IA at age 40, mother with fatal IA at age 75, mother with IA in his 80s, PTCA/stent in 3 maternal aunts in their 50s. Father with end-stage CHF at about age 94 and currently on hospice secondary to his heart disease. Respiratory: Reports: None. Denies: Asthma, COPD, PE, Pneumothorax, Sleep Apnea GI: Reports: Inflammatory Bowel Disease, Jaundice, Pancreatitis, Other (See Below). Denies: Celiac Disease, Cholelithiasis, Colon Polyps, GERD, GI bleed, Irritable Bowel Syndrome, PUD Other GI Family History: Nephew with Crohn's disease, father with jaundice, sister with pancreatitis : Reports: None. Denies: Renal Disease/Insufficiency OBGYN: Reports: None. Denies: Endometriosis, Recurrent Spontaneous Musculoskeletal: Reports: None. Denies: Arthritis, Gout, RA, SLE Neurological: Reports: None. Denies: Alzheimers Disease, Cerebral Aneurysms, CVA, Dementia, Migraines, MS, Seizure, TIA Psychiatric: Reports: Anxiety, Depression, Other (See Below). Denies: Abuse, Victim of, ADD, ADHD, Psych Hospitalization(s), PTSD, Suicide Attempt Other Psychiatric Family History: Anxiety depression disorder in mother and 2 sisters Endocrine/Metabolic: Reports: Hypothyroidism, Other (See Below). Denies: Diabetes, Gestational, Diabetes, Type I, Diabetes, type II, Diabetes Mellitus, Type 3c, IDDM Other Endocrine/Metabolic Family History: Mother with hypothyroidism Hematologic: Reports: Anemia, Other (See Below) Other Hematologic Family History: Son and brother with anemia, father with transfusions secondary to his jaundice/injury in his 40s Immunologic: Reports: Immunosuppression, Other (See Below). Denies: AIDS, HIV, SLE Other Immunologic Family History: Sister with scleroderma and another unknown type of immunodeficiency disorder with secondary pancreatitis requiring surgery at about age 35 Dermatologic: Reports: Other (See Below). Denies: Eczema, Psoriasis Other Dermatologic Family History: sister with scleroderma Oncologic: Reports: Bladder, Colon, Leukemia, Renal, Other (See Below) Other Oncologic Family History: Brother with fatal colon cancer at age 25, son with ALL at age 3-1/2 years with blood transfusions required, father with kidney cancer in his 80s. Brother with bladder cancer at about age 66. - Tobacco Use Tobacco Use Status *Q: Never Tobacco User Tobacco Use Within Last Twelve Months: No Used Tobacco, but Quit: No Smoking Cessation Information Provided To Patient: No Second Hand Smoke Exposure: Yes Source of Second Hand Smoke Exposure: smokes Second Hand Smoke Education Provided: Yes - Caffeine Use Caffeine Use: Reports: Coffee (1/2 cup per day). Denies: Energy Drinks, Soda, Tea - Alcohol Use Alcohol Use History: No Days Per Week of Alcohol Use: 0 Number of Drinks Per Day: 0 Number of Drinks Per Day Comment: No previous DWIs, problems with alcohol abuse, etc. 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 ED EXAM, GENERAL - Physical Exam Exam: See Below Exam Limited By: No Limitations General Appearance: Alert, WD/WN, No Apparent Distress, Anxious (Mild) Eye Exam: Bilateral Eye: EOMI, Normal Inspection (The patient is wearing gla sses. No vertigo or nystagmus.), PERRL Ears: Normal External Exam, Normal Canal, Hearing Grossly Normal, Normal TMs Nose: Normal Inspection, Normal Mucosa, No Blood Throat/Mouth: Normal Inspection, Normal Lips, Normal Teeth (Multiple missing teeth with no evidence of acute infection, caries, etc.), Normal Gums, Normal Oropharynx, Normal Voice, No Airway Compromise. No: Dysphagia, Perioral Cyanosis Head: Atraumatic, Normocephalic. No: Facial Swelling, Facial Tenderness, Sinus Tenderness Neck: Normal Inspection, Supple, Non-Tender, Full Range of Motion. No: Lymphadenopathy (L), Lymphadenopathy (R), Thyromegaly Respiratory/Chest: No Respiratory Distress, Lungs Clear, Normal Breath Sounds, No Accessory Muscle Use, Chest Non-Tender. No: Pleural Rub, Retractions Cardiovascular: Normal Peripheral Pulses, Regular Rate, Rhythm, No Edema, No Gallop, No JVD, No Murmur, No Rub. No: Gallop/S3, Gallop/S4, Friction Rub Peripheral Pulses: 2+: Radial (L), Radial (R), Dorsalis Pedis (L), Dorsalis Pedis (R) GI/Abdominal: Normal Bowel Sounds, Soft, Non-Tender, No Organomegaly, No Distention, No Abnormal Bruit, No Mass, Other (Obese). No: Guarding (Female) Exam: Deferred Rectal (Female) Exam: Deferred Back Exam: Normal Inspection, Full Range of Motion. No: CVA Tenderness (L), CVA Tenderness (R), Muscle Spasm Extremities: Normal Inspection, Normal Range of Motion, Non-Tender, No Pedal Edema, Normal Capillary Refill. No: Darwin's Sign Neurological: Alert, Oriented, CN II-XII Intact, Normal Cognition, Normal Gait, Normal Reflexes, No Motor/Sensory Deficits, Disoriented (Negative Babinski's) Psychiatric: Anxious (Mild), Depressed Mood (Mild with mild adequate eye contact) Skin Exam: Warm, Dry, Intact, Normal Color, No Rash. No: Diaphoretic, Wound/Incision Lymphatic: No Adenopathy Course - Vital Signs Last Recorded V/S: Last Vital Signs Temp 36.1 C 05/31/20 13:11 Pulse 71 05/31/20 13:11 Resp 16 05/31/20 13:11 BP 125/70 05/31/20 13:11 Pulse Ox 99 05/31/20 13:11 Vital Signs - 24 hr 05/31/20 13:11 Temperature [ 36.1 C Temporal] Pulse, 71 Peripheral [ Pulse Oximetry] Respiratory 16 Rate Blood Pressure 125/70 [Left] O2 Sat by Pulse 99 Oximetry - Orders/Labs/Meds Orders: Active Orders 24 hr Category Date Time Status Abdomen Series w Chest 1V [CR] Stat Exams 05/31/20 13:17 Taken CULTURE URINE [RM] Stat Lab 05/31/20 13:17 Ordered Isolation [COMM] Routine Oth 05/31/20 14:41 Active Obtain Past Medical Record [OM.PC] Urgent Oth 05/31/20 13:17 Active Peripheral IV Insertion Adult [OM.PC] Stat Oth 05/31/20 13:17 Ordered Resuscitation Status Stat Resus Stat 05/31/20 13:17 Ordered Labs: Laboratory Tests 05/31/20 05/31/20 05/31/20 Range/Units 13:15 14:12 14:12 WBC 12.1 H (4.0-10.2) K/uL RBC 4.25 (3.77-5.09) M/uL Hgb 13.0 (11.7-15.5) g/dL Hct 38.3 (34.0-46.0) % MCV 90.1 (84.0-98.0) fL MCH 30.6 (28.2-33.3) pg MCHC 33.9 (31.7-36.0) g/dL RDW 12.8 (11.2-14.1) % Plt Count 203 (150-350) K/uL Neut % (Auto) 93.8 H (45.0-80.0) % Lymph % (Auto) 3.8 L (10.0-50.0) % [place] % (Auto) 2.4 (2.0-14.0) % Eos % (Auto) 0.0 (0.0-5.0) % Baso % (Auto) 0.0 (0.0-2.0) % Neut # (Auto) 11.36 H (1.40-7.00) K/uL Lymph # (Auto) 0.46 L (0.50-3.50) K/uL [place] # (Auto) 0.29 (0.00-1.00) K/uL Eos # (Auto) 0.00 (0.00-0.50) K/uL Baso # (Auto) 0.00 (0.00-0.20) K/uL PT (9.5-12.0) SEC INR APTT (24.5-32.8) SEC Sodium (136-145) mmol/L Potassium (3.5-5.1) mmol/L Chloride (98-107) mmol/L Carbon Dioxide (21.0-32.0) mmol/L BUN (7-18) mg/dL Creatinine (0.51-1.17) mg/dL Est Cr Clr Drug Dosing Estimated GFR (MDRD) mL/min Glucose (74-106) mg/dL Lactic Acid (0.4-2.0) mmol/L Uric Acid (2.6-7.2) mg/dL Calcium (8.5-10.1) mg/dL Magnesium (1.8-2.4) mg/dL Total Bilirubin (0.2-1.0) mg/dL AST (15-37) U/L ALT (12-78) U/L Alkaline Phosphatase (46-116) IU/L Total Protein (6.4-8.2) g/dL Albumin (3.4-5.0) g/dL Amylase 54 (25-115) U/L Lipase (73-393) U/L Specimen Type Urinvoid Urine Color Dark yellow Urine Appearance Slightly cloudy Urine pH 5.5 (5.0-9.0) Ur Specific [place] 1.025 (1.005-1.030) Urine Protein Negative (NEGATIVE) mg/dL Urine Glucose (UA) Negative (NEGATIVE) mg/dL Urine Ketones Trace H (NEGATIVE) mg/dL Urine Occult Blood Trace-lysed H (NEGATIVE) Urine Nitrite Negative (NEGATIVE) Urine Bilirubin Small H (NEGATIVE) Urine Urobilinogen 0.2 (0.2-1.0) E.U./dL Ur Leukocyte Esterase Negative (NEGATIVE) Urine RBC 5-10 H /HPF Urine WBC 5-10 H /HPF Ur Epithelial Cells Moderate H /LPF Urine Bacteria Moderate H (NONE TO FEW) /HPF Urine Mucus Many H (NEGATIVE) /LPF SARS-CoV-2 RNA (LOI) (NEGATIVE) 05/31/20 05/31/20 05/31/20 Range/Units 14:12 14:12 14:12 WBC (4.0-10.2) K/uL RBC (3.77-5.09) M/uL Hgb (11.7-15.5) g/dL Hct (34.0-46.0) % MCV (84.0-98.0) fL MCH (28.2-33.3) pg MCHC (31.7-36.0) g/dL RDW (11.2-14.1) % Plt Count (150-350) K/uL Neut % (Auto) (45.0-80.0) % Lymph % (Auto) (10.0-50.0) % [place] % (Auto) (2.0-14.0) % Eos % (Auto) (0.0-5.0) % Baso % (Auto) (0.0-2.0) % Neut # (Auto) (1.40-7.00) K/uL Lymph # (Auto) (0.50-3.50) K/uL [place] # (Auto) (0.00-1.00) K/uL Eos # (Auto) (0.00-0.50) K/uL Baso # (Auto) (0.00-0.20) K/uL PT 10.0 (9.5-12.0) SEC INR 1.0 APTT 23.0 L (24.5-32.8) SEC Sodium 137 (136-145) mmol/L Potassium 4.0 (3.5-5.1) mmol/L Chloride 102 (98-107) mmol/L Carbon Dioxide 27.1 (21.0-32.0) mmol/L BUN 24 H (7-18) mg/dL Creatinine 1.12 (0.51-1.17) mg/dL Est Cr Clr Drug Dosing TNP Estimated GFR (MDRD) 50 mL/min Glucose 102 (74-106) mg/dL Lactic Acid 1.7 (0.4-2.0) mmol/L Uric Acid 4.8 (2.6-7.2) mg/dL Calcium 9.2 (8.5-10.1) mg/dL Magnesium 1.9 (1.8-2.4) mg/dL Total Bilirubin 0.4 (0.2-1.0) mg/dL AST 14 L (15-37) U/L ALT 22 (12-78) U/L Alkaline Phosphatase 47 (46-116) IU/L Total Protein 6.8 (6.4-8.2) g/dL Albumin 3.8 (3.4-5.0) g/dL Amylase (25-115) U/L Lipase 112 (73-393) U/L Specimen Type Urine Color Urine Appearance Urine pH (5.0-9.0) Ur Specific [place] (1.005-1.030) Urine Protein (NEGATIVE) mg/dL Urine Glucose (UA) (NEGATIVE) mg/dL Urine Ketones (NEGATIVE) mg/dL Urine Occult Blood (NEGATIVE) Urine Nitrite (NEGATIVE) Urine Bilirubin (NEGATIVE) Urine Urobilinogen (0.2-1.0) E.U./dL Ur Leukocyte Esterase (NEGATIVE) Urine RBC /HPF Urine WBC /HPF Ur Epithelial Cells /LPF Urine Bacteria (NONE TO FEW) /HPF Urine Mucus (NEGATIVE) /LPF SARS-CoV-2 RNA (LOI) (NEGATIVE) 05/31/20 Range/Units 14:25 WBC (4.0-10.2) K/uL RBC (3.77-5.09) M/uL Hgb (11.7-15.5) g/dL Hct (34.0-46.0) % MCV (84.0-98.0) fL MCH (28.2-33.3) pg MCHC (31.7-36.0) g/dL RDW (11.2-14.1) % Plt Count (150-350) K/uL Neut % (Auto) (45.0-80.0) % Lymph % (Auto) (10.0-50.0) % [place] % (Auto) (2.0-14.0) % Eos % (Auto) (0.0-5.0) % Baso % (Auto) (0.0-2.0) % Neut # (Auto) (1.40-7.00) K/uL Lymph # (Auto) (0.50-3.50) K/uL [place] # (Auto) (0.00-1.00) K/uL Eos # (Auto) (0.00-0.50) K/uL Baso # (Auto) (0.00-0.20) K/uL PT (9.5-12.0) SEC INR APTT (24.5-32.8) SEC Sodium (136-145) mmol/L Potassium (3.5-5.1) mmol/L Chloride (98-107) mmol/L Carbon Dioxide (21.0-32.0) mmol/L BUN (7-18) mg/dL Creatinine (0.51-1.17) mg/dL Est Cr Clr Drug Dosing Estimated GFR (MDRD) mL/min Glucose (74-106) mg/dL Lactic Acid (0.4-2.0) mmol/L Uric Acid (2.6-7.2) mg/dL Calcium (8.5-10.1) mg/dL Magnesium (1.8-2.4) mg/dL Total Bilirubin (0.2-1.0) mg/dL AST (15-37) U/L ALT (12-78) U/L Alkaline Phosphatase (46-116) IU/L Total Protein (6.4-8.2) g/dL Albumin (3.4-5.0) g/dL Amylase (25-115) U/L Lipase (73-393) U/L Specimen Type Urine Color Urine Appearance Urine pH (5.0-9.0) Ur Specific [place] (1.005-1.030) Urine Protein (NEGATIVE) mg/dL Urine Glucose (UA) (NEGATIVE) mg/dL Urine Ketones (NEGATIVE) mg/dL Urine Occult Blood (NEGATIVE) Urine Nitrite (NEGATIVE) Urine Bilirubin (NEGATIVE) Urine Urobilinogen (0.2-1.0) E.U./dL Ur Leukocyte Esterase (NEGATIVE) Urine RBC /HPF Urine WBC /HPF Ur Epithelial Cells /LPF Urine Bacteria (NONE TO FEW) /HPF Urine Mucus (NEGATIVE) /LPF SARS-CoV-2 RNA (LOI) Negative (NEGATIVE) Urine specimen set up for culture and sensitivity Microbiology 05/31/20 14:25 Influenza Type A Antigen Screen - Final Nasal Aspirate, Unspecified NEGATIVE INFLUENZA A VIRUS AG REFERENCE RANGE: NEGATIVE Influenza Type B Antigen Screen - Final NEGATIVE INFLUENZA B VIRUS AG REFERENCE RANGE: NEGATIVE Meds: Medications Discontinued Medications Generic Name Dose Route Start Last Admin Trade Name Freq PRN Reason Stop Dose Admin Famotidine 40 mg 05/31/20 13:17 05/31/20 14:03 Pepcid IVPUSH 05/31/20 13:18 40 mg ONETIME ONE Administration Lactated Ringer's 1,000 mls @ 999 mls/hr 05/31/20 13:17 05/31/20 14:03 Ringers, Lactated IV 05/31/20 14:17 999 mls/hr .BOLUS ONE Administration Ceftriaxone Sodium 1 gm/ 100 mls @ 200 mls/hr 05/31/20 14:31 05/31/20 15:19 Sodium Chloride IV 05/31/20 15:00 200 mls/hr ONETIME ONE Administration Ondansetron HCl 4 mg 05/31/20 13:17 05/31/20 14:03 Zofran IVPUSH 05/31/20 13:18 4 mg ONETIME ONE Administration Pantoprazole Sodium 40 mg 05/31/20 13:17 05/31/20 14:02 Protonix Iv IVPUSH 05/31/20 13:18 40 mg ONETIME ONE Administration Sodium Chloride 10 ml 05/31/20 13:17 05/31/20 14:03 Saline Flush FLUSH 10 ml ASDIRECTED PRN Administration Keep Vein Open - Radiology Interpretation Free Text/Narrative:: Acute abdominal x-rays shows mildly increased nonspecific bowel gaseous pattern with moderate amounts of diffuse stool. Mildly elevated right hemidiaphragm. Mild pulmonary obstructive disease with no pulmonary infiltrates, pneumothorax, cardiomegaly, CHF, fluid levels, free air, ileus, or obstruction. Departure - Departure Time of Disposition: 15:38 Disposition: Home, Self-Care 01 Condition: Good Clinical Impression: Mixed anxiety and depressive disorder, Coronary artery disease, HTN (hypertension), UTI (urinary tract infection), Asthma, Nausea and vomiting, Tobacco abuse counseling, Eosinophilia - Discharge Information *PRESCRIPTION DRUG MONITORING PROGRAM REVIEWED*: Not Applicable *COPY OF PRESCRIPTION DRUG MONITORING REPORT IN PATIENT MIRIAM: Not Applicable Prescriptions: Nitrofurantoin Monohyd/M-Cryst [Macrobid 100 mg Capsule] 100 mg PO BIDMEALS #20 capsule Instructions: Steps to Quit Smoking, [id number]-Saic, Health Risks of Smoking, Nausea and Vomiting, Adult, [id number], Urinary Tract Infection, Adult, [id number] Referrals: Kenyatta Braun PA-C [Primary Care Provider] - Forms: ED Department Discharge, ED Return to Work/School Form Additional Instructions: 1. Followup with your regular provider in 10-14 days as directed for reevaluation and recommended repeat CBC and urine tests as below. Bring these discharge instructions with you to that visit. 2. Urine tests should be repeated at follow up visit with possible repeat urine culture,etc. at that time. Today's urine culture is pending with results in about 2-3 days. We will call you, if we need to change your therapy. 4. Tylenol 650 mg by mouth every 4 hours and/or OTC ibuprofen 2-3 tabs by mouth every 6 hours with food as directed./needed. You may stagger these medications for 48-72 hours only, which essentially means that you are receiving a pain medication about every 2 hours. 5. [place] diet including encouragement of oral fluids such as sports drinks, etc. for 24-48 hours as directed. Advance to heart healthy, diverticulosis diet as tolerated thereafter. 6. Stop all tobacco exposure ELMO as directed with counselling, information, e tc. given at discharge. 7. Work excuse- See Form 8. Immediately after this visit verify that your cellular telephone's voicemail has been activated and is empty. Also verify that your home telephone's answering machine is operating properly and has space to receive messages. Note that it is sometimes necessary for us to be able to contact you at a later date to discuss your medical care. 9. Please remember that we are ALWAYS here for you and want to answer any questions you may have. Feel free to call the hospital any time and we call you back ELMO. 10. Obtain your influenza booster ELMO as discussed. Sepsis Event Note (ED) - Focused Exam Vital Signs: Vital Signs Temp Pulse Resp BP Pulse Ox 05/31/20 13:11 36.1 C 71 16 125/70 99 - Problem List & Annotations (1) UTI (urinary tract infection) SNOMED Code(s): 38586717 Code(s): N39.0 - URINARY TRACT INFECTION, SITE NOT SPECIFIED Status: Chronic Priority: Medium Current Visit: Yes Annotation/Comment:: Patient is on a 3 times per week prophylactic Bactrim DS regimen. Secondary to leukocytosis IV Rocephin was given in the emergency room. Initiate subsequent Macrobid therapy with outpatient failure with previous Cipro. Close follow-up by regular provider as per discharge instructions. Urine specimen set up for culture and sensitivity. Qualifiers: Urinary tract infection type: acute cystitis Hematuria presence: without hematuria Qualified Code(s): N30.00 - Acute cystitis without hematuria (2) Nausea and vomiting SNOMED Code(s): 93172440 Code(s): R11.2 - NAUSEA WITH VOMITING, UNSPECIFIED Status: Acute Current Visit: Yes Onset Date: 05/31/20 Annotation/Comment:: Nonspecific symptoms with overall good response to medications in the emergency as above. Possible getting viral GE. Observe for now. Qualifiers: Vomiting type: unspecified Vomiting Intractability: non-intractable Qualified Code(s): R11.2 - Nausea with vomiting, unspecified (3) Mixed anxiety and depressive disorder SNOMED Code(s): 477219642 Code(s): F41.8 - OTHER SPECIFIED ANXIETY DISORDERS Status: Chronic Lorri ority: Medium Current Visit: Yes Annotation/Comment:: Moderate control based on today's evaluation. Patient is somewhat concerned today's secondary to possible problems with her sisters heart earlier this morning with specifics unknown at this time. Emotional support was provided. Continue to observe closely by her regular providers. (4) Asthma SNOMED Code(s): 570146038 Code(s): J45.909 - UNSPECIFIED ASTHMA, UNCOMPLICATED Status: Chronic Priority: Medium Current Visit: Yes Annotation/Comment:: Stable by history. No recent history of fever or bronchitic type symptoms. (5) Tobacco abuse counseling SNOMED Code(s): 144950493, 317089666, 059202996 Code(s): Z71.6 - TOBACCO ABUSE COUNSELING Status: Chronic Priority: Medium Current Visit: Yes Annotation/Comment:: Patient once again counseled on the importance of her stopping smoking with information once again provided for her . (6) HTN (hypertension) SNOMED Code(s): 48190059 Code(s): I10 - ESSENTIAL (PRIMARY) HYPERTENSION Status: Acute Priority: High Current Visit: Yes Annotation/Comment:: Stable during ER evaluation. Continue to observe closely by her regular provider. Qualifiers: Hypertension type: essential hypertension Qualified Code(s): I10 - Essential (primary) hypertension (7) Peptic reflux disease SNOMED Code(s): 392180084 Code(s): K21.9 - GASTRO-ESOPHAGEAL REFLUX DISEASE WITHOUT ESOPHAGITIS Status: Chronic Priority: Medium Current Visit: No Annotation/Comment:: Previously stable by history. High-dose IV Pepcid and IV Protonix given in the emergency room as a prophylactic measure. No evidence of significant current exacerbation. (8) Eosinophilia SNOMED Code(s): 601058181 Code(s): D72.19 - OTHER EOSINOPHILIA Status: Chronic Priority: Medium Current Visit: Yes Annotation/Comment:: Patient feels much better since starting Faserna therapy. Continue close observation by her regular providers. Qualifiers: Eosinophilia type: hypereosinophilic syndrome - Problem List Review Problem List Initiated/Reviewed/Updated: Yes - My Orders Last 24 Hours: My Active Orders 05/31/20 13:17 Abdomen Series w Chest 1V [CR] Stat CULTURE URINE [RM] Stat Obtain Past Medical Record [OM.PC] Urgent Peripheral IV Insertion Adult [OM.PC] Stat Resuscitation Status Stat 05/31/20 14:41 Isolation [COMM] Routine - Assessment/Plan Last 24 Hours: My Active Orders 05/31/20 13:17 Abdomen Series w Chest 1V [CR] Stat CULTURE URINE [RM] Stat Obtain Past Medical Record [OM.PC] Urgent Peripheral IV Insertion Adult [OM.PC] Stat Resuscitation Status Stat 05/31/20 14:41 Isolation [COMM] Routine Assessment:: As above Plan: As above. Extensive precautions were given to the patient, who is in agreement with the treatment plan. See Patient Instructions for further treatment and plan.
[2020-05-31 13:18] VITALS: BP 125/70; PULSE 71
[2020-05-31] MEDS ORDERED: cefTRIAXone 1 GM in Sodium Chloride 0.9% 100 ML IV ONE (14:31)
[2020-05-31 14:33] LABS: CHLORIDE,CL 102 mmol/L (98-107); SODIUM,NA 137 mmol/L (136-145)
== END 2020-05-31 15:46 | disposition home or self-care (01) ==
LOC: LL.ED 13:07
DX: N39.0 Urinary tract infection, site not specified (principal); I25.10 Atherosclerotic heart disease of native coronary artery without angina pectoris; I10 Essential (primary) hypertension; J45.909 Unspecified asthma, uncomplicated; R11.2 Nausea with vomiting, unspecified; Z71.6 Tobacco abuse counseling; D72.10 Eosinophilia, unspecified; F41.8 Other specified anxiety disorders; E03.9 Hypothyroidism, unspecified; E66.9 Obesity, unspecified; Z79.899 Other long term (current) drug therapy; Z20.828 Contact with and (suspected) exposure to other viral communicable diseases
CPT/HCPCS: 36415; 74022; 80053; 81001; 82150; 83605; 83690; 83735; 84550; 85025; 85610; 85730; 87086; 87804; 96361; 96365; 96375; 99285-25; C9113; J0696; J2405; J3490; J7120; U0002

== ENCOUNTER 2021-08-06 16:22 | Emergency (ER) | payer BC ==
[2021-08-06 17:17] LABS: ANION GAP 8.5 meq/L (7-15); CHLORIDE,CL 106 mmol/L (98-107); SODIUM,NA 141 mmol/L (136-145)
[2021-08-06 20:20] VITALS: BP 111/60; PULSE 79
== END 2021-08-06 18:45 | disposition home or self-care (01) ==
LOC: LL.ED 16:22
DX: N89.8 Other specified noninflammatory disorders of vagina (principal); R30.0 Dysuria; I25.10 Atherosclerotic heart disease of native coronary artery without angina pectoris; E78.00 Pure hypercholesterolemia, unspecified; J45.909 Unspecified asthma, uncomplicated; Z88.5 Allergy status to narcotic agent; Z91.041 Radiographic dye allergy status; Z88.8 Allergy status to other drugs, medicaments and biological substances
CPT/HCPCS: 36415; 80053; 81001; 85025; 86140; 87210; 99283

== ENCOUNTER 2025-02-25 11:33 | Emergency (ER) | payer BC ==
[2025-02-25 11:44] VITALS: BP 147/83; PULSE 68
[2025-02-25 12:16] LABS: BASOPHILS ABSOLUTE AUTO 0.01 K/uL (0.00-0.20); BASOPHILS PERCENT AUTO 0.2 % (0.0-2.0); EOSINOPHILS ABSOLUTE AUTO 0.00 K/uL (0.00-0.50); EOSINOPHILS PERCENT AUTO 0.0 % (0.0-5.0); IMMATURE GRAN ABSOLUTE AUTO 0.01 10^3/uL (0.00-0.04); IMMATURE GRAN PERCENT AUTO 0.2 % (0.0-0.4); LYMPHOCYTES ABSOLUTE AUTO 0.83 K/uL (0.50-3.50); LYMPHOCYTES PERCENT AUTO 16.2 % (10.0-50.0); MONOCYTES ABSOLUTE AUTO 0.31 K/uL (0.00-1.00); MONOCYTES PERCENT AUTO 6.0 % (2.0-14.0); NEUTROPHILS ABSOLUTE AUTO 3.97 K/uL (1.40-7.00); NEUTROPHILS PERCENT AUTO 77.4 % (45.0-80.0); PLATELET COUNT,PLT 247 K/uL (150-350); RED BLOOD CELL COUNT 4.14 M/uL (3.77-5.09); RED CELL DISTRIBUTION WIDTH 13.1 % (11.2-14.1); WHITE BLOOD CELL COUNT,WBC 5.1 K/uL (4.0-10.2)
[2025-02-25] MEDS ORDERED: Sodium Chloride 0.9% 10 ML Syringe FLUSH PRN (12:17)
[2025-02-25 12:32] LABS: LACTIC ACID 1.0 mmol/L (0.4-2.0)
[2025-02-25 12:37] LABS: ALANINE AMINOTRANSFERASE,ALT 22 U/L (12-78); ASPARTATE AMNIOTRANSFERASE,AST 16 U/L (15-37); BILIRUBIN TOTAL 0.3 mg/dL (0.2-1.0); BLOOD UREA NITROGEN,BUN 21 mg/dL (7-18); CARBON DIOXIDE,CO2 26.8 mmol/L (21.0-32.0); CHLORIDE,CL 107 mmol/L (98-107); CREATININE 1.09 mg/dL (0.51-1.17); ESTIMATED GFR 58 mL/min (>=60); GLUCOSE RANDOM 112 mg/dL (70-99); POTASSIUM,K 3.7 mmol/L (3.5-5.1); PRO B-TYPE NATRIUR PEPT,BNPPRO 64 pg/mL (0-125); PROTEIN TOTAL,TP 7.4 g/dL (6.4-8.2); SODIUM,NA 146 mmol/L (136-145)
[2025-02-25 12:40] LABS: APPEARANCE,URINE CLEAR; GLUCOSE,URINE NEGATIVE (NEGATIVE); OCCULT BLOOD,URINE TRACE-INTACT (NEGATIVE)
[2025-02-25] MEDS: SUMAtriptan 6 MG/0.5 ML SDV SUBCUT ONE (13:21)
== END 2025-02-25 16:15 | disposition home or self-care (01) ==
LOC: LL.ED 11:33
DX: E27.40 Unspecified adrenocortical insufficiency (principal); E78.00 Pure hypercholesterolemia, unspecified; I25.10 Atherosclerotic heart disease of native coronary artery without angina pectoris; Z88.8 Allergy status to other drugs, medicaments and biological substances; Z79.899 Other long term (current) drug therapy; Z79.890 Hormone replacement therapy
CPT/HCPCS: 36415; 80053; 81001; 81515; 83605; 83880; 84443; 84484; 85025; 85379; 93005; 96360; 96361; 96372; 99284; A9270; J3030; J7030

== ENCOUNTER 2025-03-12 16:25 | Emergency (ER) | payer BC ==
[2025-03-12] MEDS: Sodium Chloride 0.9% 10 ML Syringe FLUSH PRN (16:46)
[2025-03-12] MEDS: Ondansetron 4 MG/2 ML SDV IVPUSH ONE (16:46)
[2025-03-12 16:48] LABS: BASOPHILS ABSOLUTE AUTO 0.01 K/uL (0.00-0.20); BASOPHILS PERCENT AUTO 0.2 % (0.0-2.0); EOSINOPHILS ABSOLUTE AUTO 0.00 K/uL (0.00-0.50); EOSINOPHILS PERCENT AUTO 0.0 % (0.0-5.0); IMMATURE GRAN ABSOLUTE AUTO 0.00 10^3/uL (0.00-0.04); IMMATURE GRAN PERCENT AUTO 0.0 % (0.0-0.4); LYMPHOCYTES ABSOLUTE AUTO 1.27 K/uL (0.50-3.50); LYMPHOCYTES PERCENT AUTO 25.8 % (10.0-50.0); MONOCYTES ABSOLUTE AUTO 0.40 K/uL (0.00-1.00); MONOCYTES PERCENT AUTO 8.1 % (2.0-14.0); NEUTROPHILS ABSOLUTE AUTO 3.25 K/uL (1.40-7.00); NEUTROPHILS PERCENT AUTO 65.9 % (45.0-80.0); PLATELET COUNT,PLT 278 K/uL (150-350); RED BLOOD CELL COUNT 4.43 M/uL (3.77-5.09); RED CELL DISTRIBUTION WIDTH 12.4 % (11.2-14.1); WHITE BLOOD CELL COUNT,WBC 4.9 K/uL (4.0-10.2)
[2025-03-12 17:12] LABS: INR 1.0 (0.9-1.1); PTT,PARTIAL THROMBOPLSTIN TIME 24.1 SEC (23.8-34.4)
[2025-03-12] MEDS: Ketorolac 15 MG/ML SDV IVPUSH ONE (17:14)
[2025-03-12 17:24] LABS: ALANINE AMINOTRANSFERASE,ALT 26 U/L (12-78); ASPARTATE AMNIOTRANSFERASE,AST 13 U/L (15-37); BILIRUBIN TOTAL 0.3 mg/dL (0.2-1.0); BLOOD UREA NITROGEN,BUN 20 mg/dL (7-18); CARBON DIOXIDE,CO2 31.0 mmol/L (21.0-32.0); CHLORIDE,CL 106 mmol/L (98-107); CREATININE 0.97 mg/dL (0.51-1.17); EST CRCL DRUG DOSING (CG) 48.17 mL/min; GLUCOSE RANDOM 97 mg/dL (70-99); POTASSIUM,K 3.6 mmol/L (3.5-5.1); PROTEIN TOTAL,TP 7.8 g/dL (6.4-8.2); SODIUM,NA 144 mmol/L (136-145); TSH ULTRASENSITIVE 3.339 mIU/mL (0.358-3.740)
[2025-03-12 17:25] LABS: ESTIMATED GFR 66 mL/min (>=60)
[2025-03-12 17:44] LABS: APPEARANCE,URINE CLOUDY; GLUCOSE,URINE NEGATIVE (NEGATIVE); OCCULT BLOOD,URINE TRACE-INTACT (NEGATIVE)
[2025-03-12] MEDS: LORazepam 2 MG/ML SDV IVPUSH ONE (17:52)
[2025-03-12 17:59] LABS: AMPHETAMINES SCREEN, URINE NEGATIVE (NEGATIVE); COCAINE METABOLITES,URINE NEGATIVE (NEGATIVE); EDDP,URINE SCREEN NEGATIVE (NEGATIVE); METHAMPHETAMINES SCREEN, URINE NEGATIVE (NEGATIVE); TCA SCREEN,URINE NEGATIVE (NEGATIVE); THC SCREEN,URINE 50 NG/ML NEGATIVE (NEGATIVE)
[2025-03-12 18:04] LABS: SQUAMOUS EPITHELIAL CELLS,UR RARE /HPF (NOT SEEN)
[2025-03-12 18:05] LABS: BUPRENORPHINE SCREEN,URINE NEGATIVE (NEGATIVE); OXYCODONE SCREEN,URINE NEGATIVE (NEGATIVE)
[2025-03-12 18:12] VITALS: BP 138/84; PULSE 67
[2025-03-12] MEDS: Take Home: LORazepam 0.5 MG Tab, 5 Tab Pack PO ONE (18:35)
== END 2025-03-12 18:40 | disposition home or self-care (01) ==
LOC: LL.ED 16:25
DX: I16.9 Hypertensive crisis, unspecified (principal); I25.10 Atherosclerotic heart disease of native coronary artery without angina pectoris; E03.9 Hypothyroidism, unspecified; E78.5 Hyperlipidemia, unspecified; Z88.8 Allergy status to other drugs, medicaments and biological substances; Z91.041 Radiographic dye allergy status
CPT/HCPCS: 36415; 70450; 80053; 80305-QW; 81001; 83735; 84443; 84484; 85025; 85610; 85730; 86140; 93005; 93010; 96374; 96375; 99284; 99284-25; A9270-GY; J1885; J1920; J2060; J2405

== ENCOUNTER 2025-03-14 09:42 | Emergency (ER) | payer BC ==
[2025-03-14] MEDS: LORazepam 2 MG/ML SDV IVPUSH ONE ×2 (10:08→11:18)
[2025-03-14 10:12] LABS: BASOPHILS ABSOLUTE AUTO 0.01 K/uL (0.00-0.20); BASOPHILS PERCENT AUTO 0.2 % (0.0-2.0); EOSINOPHILS ABSOLUTE AUTO 0.00 K/uL (0.00-0.50); EOSINOPHILS PERCENT AUTO 0.0 % (0.0-5.0); IMMATURE GRAN ABSOLUTE AUTO 0.00 10^3/uL (0.00-0.04); IMMATURE GRAN PERCENT AUTO 0.0 % (0.0-0.4); LYMPHOCYTES ABSOLUTE AUTO 1.16 K/uL (0.50-3.50); LYMPHOCYTES PERCENT AUTO 20.7 % (10.0-50.0); MONOCYTES ABSOLUTE AUTO 0.50 K/uL (0.00-1.00); MONOCYTES PERCENT AUTO 8.9 % (2.0-14.0); NEUTROPHILS ABSOLUTE AUTO 3.94 K/uL (1.40-7.00); NEUTROPHILS PERCENT AUTO 70.2 % (45.0-80.0); PLATELET COUNT,PLT 273 K/uL (150-350); RED BLOOD CELL COUNT 4.26 M/uL (3.77-5.09); RED CELL DISTRIBUTION WIDTH 12.6 % (11.2-14.1); WHITE BLOOD CELL COUNT,WBC 5.6 K/uL (4.0-10.2)
[2025-03-14] MEDS: Nitroglycerin 0.4 MG Tab.SL SL ONE (10:16)
[2025-03-14] MEDS: Ondansetron 4 MG/2 ML SDV IVPUSH ONE (10:26)
[2025-03-14 10:38] LABS: ALANINE AMINOTRANSFERASE,ALT 29 U/L (12-78); ASPARTATE AMNIOTRANSFERASE,AST 14 U/L (15-37); BILIRUBIN TOTAL 0.4 mg/dL (0.2-1.0); BLOOD UREA NITROGEN,BUN 22 mg/dL (7-18); CARBON DIOXIDE,CO2 28.2 mmol/L (21.0-32.0); CREATININE 1.02 mg/dL (0.51-1.17); ESTIMATED GFR 63 mL/min (>=60); GLUCOSE RANDOM 91 mg/dL (70-99); POTASSIUM,K 3.8 mmol/L (3.5-5.1); PROTEIN TOTAL,TP 7.4 g/dL (6.4-8.2)
[2025-03-14] MEDS: Nitroglycerin 0.4 MG Tab.SL SL PRN (10:42)
[2025-03-14 10:51] LABS: INR 1.0 (0.9-1.1); PTT,PARTIAL THROMBOPLSTIN TIME 23.2 SEC (23.8-34.4)
[2025-03-14 11:06] LABS: CHLORIDE,CL 108 mmol/L (98-107); SODIUM,NA 145 mmol/L (136-145)
[2025-03-14] MEDS ORDERED: Sodium Chloride 0.9% 10 ML Syringe FLUSH PRN (11:14)
[2025-03-14] MEDS: Sodium Chloride 0.9% 10 ML Syringe FLUSH PRN (11:19)
[2025-03-14] MEDS: Heparin Sodium 5,000 Units/ML Vial IVPUSH ONE (11:23)
[2025-03-14] MEDS: Heparin Sodium/0.45% NaCl 500 ML IV SCH (11:29)
[2025-03-14 13:56] VITALS: BP 118/71; PULSE 86
== END 2025-03-14 13:38 ==
LOC: LL.ED 09:42
DX: I25.110 Atherosclerotic heart disease of native coronary artery with unstable angina pectoris (principal); E03.9 Hypothyroidism, unspecified; E78.5 Hyperlipidemia, unspecified; K21.9 Gastro-esophageal reflux disease without esophagitis; Z88.5 Allergy status to narcotic agent; Z91.041 Radiographic dye allergy status; Z79.899 Other long term (current) drug therapy; Z79.890 Hormone replacement therapy
CPT/HCPCS: 36415; 71045; 80053; 83735; 84484; 85025; 85379; 85610; 85730; 93005; 93010; 96365; 96366; 96375; 99284; 99285-25; A9270-GY; J1644; J2060; J2305; J2405